=== PATIENT | female | born 1960 | race Caucasian/White ===

== ENCOUNTER → 2017-10-22 11:44 | Outpatient (CLI) | payer BC, SELFPAY ==
[2017-10-22 12:50] LABS: Abs Immature Grans 0.04 k/cumm (0.0-0.09); Absolute Basophil Count 0.06 k/cumm (0.0-0.2); Absolute Eosinophil Count 0.05 k/cumm (0.0-0.7); Absolute Lymphocyte Count 0.92 k/cumm (1.2-3.4); Absolute Monocyte Count 1.05 k/cumm (0.11-0.7); Absolute Neutrophil Count 4.48 k/cumm (1.2-6.7); Basophils % 0.9; Eosinophils % 0.8; HCT 33.5 % (36.0-46.0); HGB 11.5 g/dL (12.0-15.5); Immature Grans % 0.6; Lymphocytes % 13.9; Mean Corp. HGB Concentration 34.3 g/dL (32.0-36.0); Mean Corpuscular Hemoglobin 35.8 pg (27.0-33.0); Mean Corpuscular Volume 104.4 fL (80-95); Mean Platelet Volume 10.5 fL (8.0-11.0); Monocytes % 15.9; Neutrophils % 67.9; RBC 3.21 m/cumm (4.00-5.20); RBC Distribution Width 15.3 % (11.7-14.6)
[2017-10-22 13:06] LABS: INR 1.6 (1.0-3.5); Prothrombin Time 15.2 sec (9.3-10.8)
[2017-10-22 13:09] LABS: ALT 50 U/L (12-78); AST 169 U/L (15-37); Albumin 2.6 g/dL (3.4-5.0); Alkaline Phosphatase 147 U/L (46-116); Anion Gap 7.7 mmol/L (3-11); BUN 6 mg/dL (7-18); Bilirubin, Total 7.3 mg/dL (0.2-1.0); CO2 30.3 mmol/L (21.0-32.0); CREATININE 0.52 mg/dL (0.55-1.02); Calcium 8.6 mg/dL (8.5-10.1); Chloride 101 mmol/L (98-107); Glucose 164 mg/dL (70-100); Potassium 4.1 mmol/L (3.5-5.1); Sodium 139 mmol/L (136-145); Total Protein 7.8 g/dL (6.4-8.2)
[2017-10-22 13:52] LABS: Platelet Count 91 x1000/uL (130-400)
== END ==
PROVIDERS: PCP Family Medicine; Visit Provider Nurse Practitioner Family
DX: K70.31 Alcoholic cirrhosis of liver with ascites (principal)
CPT/HCPCS: 36415; 80053; 85025; 85610

== ENCOUNTER 2018-01-17 13:02 | Inpatient (IN) | payer BC, SELFPAY ==
[2018-01-17] VITALS (81 sets, daily range): BP systolic 77–115; BP diastolic 39–66; PULSE 95–128; RESP 6–28; TEMP 36.8–38.4; O2SAT 84–100
[2018-01-17] MEDS: Normal Saline 1,000 ML 1000 ML IV ×2 (14:00→15:00)
--- NOTE | 2018-01-17 14:07 | DI.CT_ITS ---
SYMPTOMS/DIAGNOSIS: BACK AND ABDOMINAL PAIN CTA OF THE CHEST, ABDOMEN AND PELVIS: CT angiography was performed with multi slice acquisition and multi planar and 3D reconstruction. CTA OF THE ABDOMEN AND PELVIS: Comparison CT is 09/02/17. The liver is lobulated with an enlarged left lobe. These findings are unchanged. The findings are suggestive of hepatic cirrhosis. There are varices seen in the upper abdomen, including adjacent to the spleen in the anterior abdomen and at the gastroesophageal junction. The spleen appears mildly enlarged. There is a small amount of pelvic and abdominal ascites present. There are stones seen within the gallbladder, which appears mildly distended. No biliary ductal dilatation is seen. The pancreas is unremarkable, as are the adrenal glands. The kidneys show normal and symmetric enhancement. No solid renal mass or obstruction is seen. The urinary bladder is intact. The reproductive organs are unremarkable. There is a moderate amount of stool throughout the colon. There is diverticulosis seen in the distal transverse colon and descending colon, but no evidence of acute diverticulitis is present. There does appear to be mild bowel wall thickening in the ascending colon and cecum. Pericolonic inflammatory changes are seen. Colitis should be considered. Followup is recommended to exclude an underlying mass. The appendix is not visualized. The abdominal aorta is of normal caliber. There is mild atherosclerosis present. No evidence of dissection or aneurysm is seen. The celiac axis, inferior and superior mesenteric arteries all appear grossly unremarkable, as are the renal arteries. Mild degenerative changes are seen in the spine, particularly at L5-S1. IMPRESSION: 1. No evidence of abdominal or pelvic arterial injury, dissection or aneurysm. 2. Findings consistent with hepatic cirrhosis with findings of portal hypertension. A small amount of ascites, splenomegaly and extensive abdominal varices. 3. Bowel wall thickening in the ascending colon and cecum. The findings are suspicious for inflammatory infectious colitis. No obstruction. 4. Cholelithiasis. No biliary ductal dilatation. CTA OF THE CHEST: The thoracic aorta is of normal caliber. The visualized portions of the pulmonary artery show no embolic disease. The heart size is within normal limits. No significant pericardial effusion is present. No evidence of right ventricular dysfunction is seen. No significant mediastinal or hilar adenopathy , pleural effusion or pneumothorax is identified. The lungs show no focal consolidating infiltrates. Dependent atelectatic changes are seen in the bases. Mild emphysematous changes are seen in the lungs. Tracheobronchial tree is otherwise unremarkable. Degenerative changes are seen in the spine. Incidental note is made of bilateral breast implants. IMPRESSION: 1. No evidence of thoracic aortic injury. 2. No acute pulmonary process. The findings were discussed with Dr. Tricia Monterroso of the Emergency Department on the date of the examination.
[2018-01-17] MEDS: Ondansetron 4 MG/2 ML VIAL IVP (14:10)
[2018-01-17 14:19] LABS: Lactate-non-spesis 4.3 mmol/L (0.6-1.4)
[2018-01-17] MEDS: Omnipaque 350 MG/ML 100 ML BTL IJ (14:21)
[2018-01-17 14:24] LABS: Abs Immature Grans 0.01 k/cumm (0.0-0.09); Absolute Basophil Count 0.01 k/cumm (0.0-0.2); Absolute Eosinophil Count 0.03 k/cumm (0.0-0.7); Absolute Lymphocyte Count 0.38 k/cumm (1.2-3.4); Absolute Monocyte Count 0.18 k/cumm (0.11-0.7); Absolute Neutrophil Count 3.33 k/cumm (1.2-6.7); Basophils % 0.3; Eosinophils % 0.8; HCT 36.7 % (36.0-46.0); HGB 12.1 g/dL (12.0-15.5); Immature Grans % 0.3; Lymphocytes % 9.6; Mean Corpuscular Hemoglobin 35.5 pg (27.0-33.0); Mean Corpuscular Volume 107.6 fL (80-95); Mean Platelet Volume 10.3 fL (8.0-11.0); Monocytes % 4.6; Neutrophils % 84.4; RBC 3.41 m/cumm (4.00-5.20); RBC Distribution Width 14.8 % (11.7-14.6); White Blood Cell Count 3.94 k/cumm (4.4-10.8)
--- NOTE | 2018-01-17 14:25 | W.ED.GENAD ---
Discharge Plan Disposition Condition: Deteriorating Discharge Details Chief Complaint: Abd Prob Reason For Visit: SEPSIS, COLITIS Admit Date/Time: 01/17/18 18:32 Admit Provider: Christopher Nicholson Attending Provider: Christopher Nicholson Primary Care Provider: Lisa Marie ED Provider: Tricia Monterroso Discharge Instructions Activity:: Bedrest Diet:: NPO Discharge Orders Discharge Orders: Discharge Order (Routine); Ordered 01/18/18 Ordered By: Christopher Nicholson Discharge Data Discharge Date/Time-TO BE ENTERED AT DEPARTURE: 01/17/18 16:36 Medical Decision Making Dalia Land is a 57 y/o woman with h/o alcoholism, liver cirrhosis, HLD, asthma, breast ca in remission for 6 years who presented to the emergency department with sudden onset severe RLQ radiating to the back at 10am today that has been worsening since, now also with upper back pain, headache, neck pain, and generalized abdominal pain. On exam Pt appears in pain and acutely ill. Abdomen is soft and non-distended but diffusely TTP with rebound and guarding. Pt is febrile and tachycardic. Concern for bowel ischemia, aortic pathology, appy, perforated bowel, SBP, other acute emergent intrabdominal process. Exam/hx not c/w PE, ACS, meningitis, non-abdominal source of infection. Pt taken emergently for CTA thorax/abd/pelv after IV placed with IVF running. Plan for IV vanc/zosyn, screening labs, IVF hydration, telemetry, IV opiate pain control. Dr. Diallo of surgery made aware of Pt after abdominal exam prior to CT given peritoneal signs, CT pending. Pt significantly more comfortable after pain meds. Continues to be tachycardic. Intermittent hypotension SBP 80s that is fluid responsive to SBP 110s. CT shows ascending colitis, cirrhosis, and mild ascites. No apparent ascites on exam. Pt reports she had paracentesis performed at [facility] [place] a few months ago. Possible SBP. Dr. Nicholson consulted for possible admission, Dr. Daillo at bedside. Dr. Diallo and Dr. Nicholson with concern for possible ischemic bowel or other surgical process. Plan for admission to Dr. Diallo and OR for ex/lap. Pt is amenable to the plan. I have spent greater than 35 min caring for this critically ill patient, including frequent reassessments and discussions with consultants. Medical Records Medical records reviewed: Yes I reviewed the patient's medical records. Imaging Data Radiologic Study: Attestation: I personally reviewed and interpreted this imaging study as follows: Radiologist's impression: CTA OF THE ABDOMEN AND PELVIS: Comparison CT is 09/02/17. The liver is lobulated with an enlarged left lobe. These findings are unchanged. The findings are suggestive of hepatic cirrhosis. There are varices seen in the upper abdomen, including adjacent to the spleen in the anterior abdomen and at the gastroesophageal junction. The spleen appears mildly enlarged. There is a small amount of pelvic and abdominal ascites present. There are stones seen within the gallbladder, which appears mildly distended. No biliary ductal dilatation is seen. The pancreas is unremarkable, as are the adrenal glands. The kidneys show normal and symmetric enhancement. No solid renal mass or obstruction is seen. The urinary bladder is intact. The reproductive organs are unremarkable. There is a moderate amount of stool throughout the colon. There is diverticulosis seen in the distal transverse colon and descending colon, but no evidence of acute diverticulitis is present. There does appear to be mild bowel wall thickening in the ascending colon and cecum. Pericolonic inflammatory changes are seen. Colitis should be considered. Followup is recommended to exclude an underlying mass. The appendix is not visualized. The abdominal aorta is of normal caliber. There is mild atherosclerosis present. No evidence of dissection or aneurysm is seen. The celiac axis, inferior and superior mesenteric arteries all appear grossly unremarkable, as are the renal arteries. Mild degenerative changes are seen in the spine, particularly at L5-S1. IMPRESSION: 1. No evidence of abdominal or pelvic arterial injury, dissection or aneurysm. 2. Findings consistent with hepatic cirrhosis with findings of portal hypertension. A small amount of ascites, splenomegaly and extensive abdominal varices. 3. Bowel wall thickening in the ascending colon and cecum. The findings are suspicious for inflammatory infectious colitis. No obstruction. 4. Cholelithiasis. No biliary ductal dilatation. CTA OF THE CHEST: The thoracic aorta is of normal caliber. The visualized portions of the pulmonary artery show no embolic disease. The heart size is within normal limits. No significant pericardial effusion is present. No evidence of right ventricular dysfunction is seen. No significant mediastinal or hilar adenopathy, pleural effusion or pneumothorax is identified. The lungs show no focal consolidating infiltrates. Dependent atelectatic changes are seen in the bases. Mild emphysematous changes are seen in the lungs. Tracheobronchial tree is otherwise unremarkable. Degenerative changes are seen in the spine. Incidental note is made of bilateral breast implants. IMPRESSION: 1. No evidence of thoracic aortic injury. 2. No acute pulmonary process. Lab Data Lab results reviewed: Yes I reviewed the patient's lab results. HPI General Mode of arrival: ambulatory. Date/Time Provider Initiated Documentation: 01/17/18 14:00. Limitations to Documentation: no limitations. Information obtained by: patient, family, RN notes reviewed and old records reviewed. HPI Narrative: Dalia Land is a 57 y/o woman with h/o alcoholism, liver cirrhosis, HLD, asthma, breast ca in remission for 6 years who presents to the emergency department with abd pain. Pt is accompanied by her who also provides hx. Pt reports that she was in etoh rehab at [facility] [place] 3 months ago. Has been feeling well since. Today at 10am Pt reports that she develop sudden onset severe stabbing pain in the RLQ that went through to her back. Pt reports that since onset pain has been worsening. She also reports that she has developed upper back pain, neck pain, headache, and generalized abdominal pain a few hours after RLQ pain began. Pt reports that she has had no vomiting or diarrhea since onset of pain, however they do note that Pt had a few episodes of vomiting/diarrhea a few days ago. Pt and report that prior to onset of pain today she has been feeling well and in her usual state of health without symptoms. Had been eating and drinking normally. No recent etoh. No hematochezia or melena, no SOB, no cough, no n/t, no weakness, no rash, no fever. Pt reports headache is not the worst of her life, has had several worse headaches in her life. She reports that her worst pain is her generalized abdominal pain. Related Data Home Medications Medication Instructions Recorded Confirmed albuterol sulfate 1 vial UPD Q4H PRN #1 box 02/12/15 01/17/18 albuterol sulfate [Ventolin HFA] 2 puff INHALATION QID PRN #3 puff 02/12/15 01/17/18 acamprosate 333 mg PO TID #90 tab 06/02/17 01/17/18 capsaicin 60 gm TOPICAL TID PRN #1 script 06/02/17 01/17/18 milk thistle 1,000 mg PO DAILY 06/02/17 01/17/18 pregabalin [Lyrica] 50 mg PO DAILY #90 tab-cap 06/02/17 01/17/18 omeprazole 20 mg PO DAILY PRN #30 capsule. 09/02/17 valacyclovir 1,000 mg PO BID #12 tab-cap 09/17/17 01/17/18 ferrous sulfate 325 mg PO DAILY 11/02/17 01/17/18 folic acid 1 mg PO DAILY tab-cap 11/02/17 01/17/18 furosemide 40 mg PO BID tab-cap 11/02/17 01/17/18 gabapentin 100 mg PO TID tab-cap 11/02/17 01/17/18 levothyroxine 75 mcg PO DAILY #90 tab-cap 11/02/17 01/17/18 magnesium oxide 500 mg PO DAILY #90 tab-cap 11/02/17 01/17/18 melatonin 5 mg PO DAILY #90 tab-cap 11/02/17 01/17/18 pravastatin 40 mg PO DAILY #90 tab-cap 11/02/17 01/17/18 ranitidine HCl 150 mg PO BID #30 tab-cap 11/02/17 01/17/18 spironolactone 100 mg PO DAILY tab-cap 11/02/17 01/17/18 thiamine HCl (vitamin B1) 250 mg PO DAILY 11/02/17 01/17/18 potassium chloride 20 meq PO DAILY #30 tab 11/04/17 Previous Rx's Medication Instructions Recorded acamprosate 333 mg PO TID #90 tab 06/02/17 pregabalin [Lyrica] 50 mg PO DAILY #90 tab-cap 06/02/17 omeprazole 20 mg PO DAILY PRN #30 capsule. 09/02/17 valacyclovir 1,000 mg PO BID #12 tab-cap 09/17/17 levothyroxine 75 mcg PO DAILY #90 tab-cap 11/02/17 magnesium oxide 500 mg PO DAILY #90 tab-cap 11/02/17 melatonin 5 mg PO DAILY #90 tab-cap 11/02/17 pravastatin 40 mg PO DAILY #90 tab-cap 11/02/17 ranitidine HCl 150 mg PO BID #30 tab-cap 11/02/17 potassium chloride 20 meq PO DAILY #30 tab 11/04/17 Allergies Allergy/AdvReac Type Severity Reaction Status Date / Time neomycin AdvReac Unknown Unverified 01/17/18 15:06 Coldcough medicines AdvReac Severe resp. Uncoded 01/17/18 15:06 General Stated Complaint: Abd Prob ELIEZER: 3 Review of Systems Review of Systems Constitutional: denies fevers Eyes: denies eye pain ENT: denies facial pain, dental pain, sore throat Cardiovascular: denies chest pain, edema Respiratory: denies SOB, cough GI: reports abdominal pain, vomiting, diarrhea : denies flank pain MSK: reports back pain, neck pain denies arthralgias, myalgias Skin: denies rash Neuro: reports headaches, denies n/t, weakness Exam Narrative Exam Narrative: Constitutional: acutely ill-appearing, appears uncomfortable HENT: head atraumatic, normocephalic normal inspection, mucous membranes moist Eyes: conjunctiva normal, sclera normal, pupils 3mm b/l Neck: no stridor, normal ROM, trachea midline, supple NTTP, full painless ROM, neg K/B signs Chest: normal inspection Resp: normal work of breathing, LCTAB Cardio: tachycardic, normal rhythm, 3/6 systolic murmur known to Pt GI: abdomen soft, tender throughout with rebound and guarding, non-distended, no fuid wave Back: normal inspection, no rash Skin: warm, dry, normal color, no rash Neuro: alert, not altered, grossly non-focal, normal tone Ext: no edema Psych: normal behavior Course Vital Signs Temperature 36.8 C 01/17/18 13:10 Pulse 95 H 01/17/18 13:10 Respiratory Rate 18 01/17/18 13:10 Blood Pressure 98/40 L 01/17/18 13:10 Pulse Oximetry 100 01/17/18 13:10 Temperature 38.4 C H 01/17/18 13:55 Temperature Source Oral 01/17/18 13:55 Pulse 95 H 01/17/18 13:10 Respiratory Rate 18 01/17/18 13:10 Blood Pressure 98/40 L 01/17/18 13:10 Pulse Oximetry 100 01/17/18 13:10 Oxygen Delivery Method Room Air 01/17/18 13:10 Oxygen Flow Rate 0 01/17/18 13:10 Pain Level 9 01/17/18 13:10 Lab/Test Results Lab/Test Results: 01/17/18 14:05 Blood Blood Culture - Pending 01/17/18 14:02 Blood Blood Culture - Pending Laboratory Tests Range/Units 01/17/18 14:05 Lactate (0.6-1.4) mmol/L 4.3 H
[2018-01-17 14:39] LABS: INR 1.5 (1.0-3.5); Prothrombin Time 14.3 sec (9.3-10.8)
[2018-01-17 14:41] LABS: ALT 60 U/L (12-78); AST 87 U/L (15-37); Albumin 2.7 g/dL (3.4-5.0); Alkaline Phosphatase 122 U/L (46-116); Anion Gap 8.4 mmol/L (3-11); BUN 13 mg/dL (7-18); Bilirubin, Total 4.3 mg/dL (0.2-1.0); CO2 30.6 mmol/L (21.0-32.0); CREATININE 0.92 mg/dL (0.55-1.02); Calcium 9.4 mg/dL (8.5-10.1); Chloride 100 mmol/L (98-107); Glucose 170 mg/dL (70-100); Lipase 290 U/L (73-393); Potassium 4.2 mmol/L (3.5-5.1); Sodium 139 mmol/L (136-145); Total Protein 7.3 g/dL (6.4-8.2)
[2018-01-17 14:42] LABS: Troponin I < 0.02 ng/mL (0.00-0.06)
[2018-01-17 14:44] LABS: Diff Comment PLT Morph Reviewed
[2018-01-17 14:45] LABS: Macrocytosis 2+; Platelet Count 91 x1000/uL (130-400); Polychromasia Present
[2018-01-17] MEDS: HYDROmorphone 2 MG/ML VIAL 0.5 MG IVP (14:51)
[2018-01-17] MEDS: PIPERACILLIN/TAZO 4.5 GM in Normal Saline 100 ML IVPB (14:53)
[2018-01-17] MEDS: VANCOMYCIN 1,500 MG in Normal Saline 500 ML 333.3333 MG IVPB (15:33)
[2018-01-17] MEDS: Lactated Ringers 1,000 ML 1000 ML IV (15:57)
--- NOTE | 2018-01-17 16:02 | W.PM.HP.N ---
Assessment and Plan (1) Sepsis: Current visit: Yes Status: Acute A\\ Acute onset of abdominal pain. CTA shows ascending colitis? Patient with guarding and rebound even after pain medications. Lactate is increased to >4 and BUN normal. She is tachycardic and hypotensive. She is febrile. I am worried about ischemic bowel. Discussion with Dalia and her regrading exploratory vs watching and waiting, but I recommend surgery. Laparoscopic surgery not feasable as the patient is hypotensive. P\\ Exploratory Laparotomy with possible bowel resection, anastamosis and loop ileostomy vs colostomy. Central line placement and a-line placement. Also spoke to bothe patient and that I would do what I thought necessary once I found the problem. Also cautioned that this may end up a non-therapeutic laparotomy. Patients questions were answered to her satisfaction and she wished to proceed. No guarantees were given or implied. (2) Acute abdomen: Current visit: Yes Status: Acute History of Present Illness Chief Complaint: Abdominal pain Consults Consult date: 01/17/18 Requesting physician: Tricia Monterroso Narrative: Ms. Land is a 57-year-old female who has a history of alcohol abuse but has been in remission for 12 weeks. Her is at her bedside. She tells me that at 10:00 this morning she acutely had abdominal pain that started in the right lower quadrant and progressed up to the right flank right back and up to the right shoulder. She denies any diarrhea. She did have some intermittent nausea and vomiting for about a week. Up until today she was afebrile and was eating normally. She has never had pain like this before. Her last alcoholic drink was 2 days ago when she had a glass of wine. Her tells me that she has had 2 glasses of wine in the last 12 weeks. She does have a history of cirrhosis biopsy-proven. She has no history of varices. Her last meal was at midnight. She arrived in the emergency department writhing in pain hypotensive and tachycardic. Her [place] [address] 10/60 range pulse usually in the 60s-70s. On admission to the ER her blood systolic blood pressure was 80 and she was tachycardic in the 1 teens. On exam the ER physician felt that she had an acute abdomen but because of the pain being throughout the right side of side of her belly and chest and up to the neck a CT angiogram chest abdomen and pelvis was ordered. Radiologist has read it as a sending colitis. Of note she has an elevated lactate of over 4 with a normal BUN and creatinine. Her platelets are only 91 and her white blood cell count is below 4. Review of Systems Constitutional Reports anorexia and Reports fever(s) ENT Denies dizziness Cardiovascular Denies chest pain, Denies chest pain at rest, Denies syncope, Denies irregular heart rhythm, Denies palpitations, Denies dyspnea and Denies dyspnea on exertion Respiratory Denies cough, Denies hemoptysis, Denies pain with cough, Denies dyspnea and Denies dyspnea on exertion Gastrointestinal Reports as per HPI Genitourinary Denies hematuria, Denies urinary frequency, Reports flank pain, Denies urinary incontinence, Denies urinary hesitancy and Denies urinary urgency Musculoskeletal Reports system reviewed and no additional complaints, except as docu Neurologic Denies confusion, Denies dizziness and Denies syncope Psychiatric Denies confusion Endocrine Reports system reviewed and no additional complaints, except as docu and Denies palpitations Hematologic/Lymphatic Denies easy bleeding and Denies easy bruising PFSH Family History Mother Hyperlipidemia Neoplasm Father Diabetes Essential hypertension Heart disease Hyperlipidemia Sister CML (chronic myelocytic leukemia) Grandmother Diabetes Essential hypertension Heart disease Cerebrovascular accident Son No problems noted. Daughter No problems noted. Medical History Solitary lung nodule (Acute) Cirrhosis of liver (Chronic) Depression (Chronic) Fatty liver (Chronic) GERD (gastroesophageal reflux disease) (Chronic) Hx of adenomatous colonic polyps (Chronic) Hx of breast cancer (Chronic) Hyperlipidemia (Chronic) Hypothyroid (Chronic) Idiopathic peripheral neuropathy (Chronic) Murmur (Chronic) Social History housing: house marital status: current occupational status: employed current occupation: Nurse with [employer] Smoking/Tobacco Use Status: Never alcohol intake: current alcohol intake frequency: a few times a month Alcohol type: wine details: Patient was a heavy drinker. In the last 12 weeks she has had 2 glassess of substance use type: does not use Surgical History S/P colonoscopy (Acute) History of esophagogastroduodenoscopy (EGD) (Chronic) Arthroplasty of knee Reconstruction Reduction mammoplasty Thumb surgery (right) Meds Home Medications Medication Instructions Recorded Confirmed Type albuterol sulfate 1 vial UPD Q4H PRN #1 box 02/12/15 01/17/18 History albuterol sulfate [Ventolin HFA] 2 puff INHALATION QID PRN #3 puff 02/12/15 01/17/18 History acamprosate 333 mg PO TID #90 tab 06/02/17 01/17/18 Rx capsaicin 60 gm TOPICAL TID PRN #1 script 06/02/17 01/17/18 History milk thistle 1,000 mg PO DAILY 06/02/17 01/17/18 History pregabalin [Lyrica] 50 mg PO DAILY #90 tab-cap 06/02/17 01/17/18 Rx omeprazole 20 mg PO DAILY PRN #30 capsule. 09/02/17 Rx valacyclovir 1,000 mg PO BID #12 tab-cap 09/17/17 01/17/18 Rx Citalopram Hydrobromide 40 mg PO DAILY #90 tab-cap 11/02/17 01/17/18 Clinic [Citalopram HBr] ferrous sulfate 325 mg PO DAILY 11/02/17 01/17/18 History folic acid 1 mg PO DAILY tab-cap 11/02/17 01/17/18 History furosemide 40 mg PO BID tab-cap 11/02/17 01/17/18 History gabapentin 100 mg PO TID tab-cap 11/02/17 01/17/18 History levothyroxine 75 mcg PO DAILY #90 tab-cap 11/02/17 01/17/18 Rx magnesium oxide 500 mg PO DAILY #90 tab-cap 11/02/17 01/17/18 Rx melatonin 5 mg PO DAILY #90 tab-cap 11/02/17 01/17/18 Rx pravastatin 40 mg PO DAILY #90 tab-cap 11/02/17 01/17/18 Rx ranitidine HCl 150 mg PO BID #30 tab-cap 11/02/17 01/17/18 Rx spironolactone 100 mg PO DAILY tab-cap 11/02/17 01/17/18 History thiamine HCl (vitamin B1) 250 mg PO DAILY 11/02/17 01/17/18 History potassium chloride 20 meq PO DAILY #30 tab 11/04/17 Rx Allergies Allergy/AdvReac Type Severity Reaction Status Date / Time neomycin AdvReac Unknown Unverified 01/17/18 15:06 Coldcough medicines AdvReac Severe resp. Uncoded 01/17/18 15:06 Exam Const General: cooperative and acute distress Resp Effort & Inspection: normal respiratory effort Auscultation: clear to auscultation bilaterally Cardio Rate: tachycardic Rhythm: regular rhythm Heart Sounds: murmur systolic III/ GI Inspection: other (just below the xiphoid process there is a hematoma? ) Palpation: soft, guarding and tender in the RLQ, in the RUQ and at McBurney's point Auscultation: normal bowel sounds Abdomen image: 1. hematoma? General: deferred Results Labs : 01/17/18 14:05 01/17/18 14:05 Laboratory Results - last 24 hr 01/17/18 01/17/18 01/17/18 14:05 14:05 14:05 WBC 3.94 L RBC 3.41 L Hgb 12.1 Hct 36.7 MCV 107.6 H MCH 35.5 H MCHC 33.0 RDW 14.8 H Plt Count 91 L MPV 10.3 Immature Gran % 0.3 Neutrophils % 84.4 Lymphocytes % 9.6 Monocytes % 4.6 Eosinophils % 0.8 Basophils % 0.3 Absolute Neutrophils 3.33 Absolute Lymphocytes 0.38 L Absolute Monocytes 0.18 Absolute Eosinophils 0.03 Absolute Basophils 0.01 Differential Comment Plt morph reviewed RBC Morphology See below Polychromasia Present Macrocytosis 2+ PT INR Sodium 139 Potassium 4.2 Chloride 100 Carbon Dioxide 30.6 Anion Gap 8.4 BUN 13 Creatinine 0.92 Estimated GFR/1.73 m2 >= 60.00 Glucose 170 H Lactate 4.3 H Calcium 9.4 Total Bilirubin 4.3 H AST 87 H ALT 60 Alkaline Phosphatase 122 H Troponin I < 0.02 Total Protein 7.3 Albumin 2.7 L Lipase 290 Patient ABO/Rh Antibody Screen 01/17/18 01/17/18 14:05 14:35 WBC RBC Hgb Hct MCV MCH MCHC RDW Plt Count MPV Immature Gran % Neutrophils % Lymphocytes % Monocytes % Eosinophils % Basophils % Absolute Neutrophils Absolute Lymphocytes Absolute Monocytes Absolute Eosinophils Absolute Basophils Differential Comment RBC Morphology Polychromasia Macrocytosis PT 14.3 H INR 1.5 Sodium Potassium Chloride Carbon Dioxide Anion Gap BUN Creatinine Estimated GFR/1.73 m2 Glucose Lactate Calcium Total Bilirubin AST ALT Alkaline Phosphatase Troponin I Total Protein Albumin Lipase Patient ABO/Rh A Positive Antibody Screen Negative Last Vital Signs Temp 99.9 F H 01/17/18 16:01 Pulse 113 H 01/17/18 15:30 Resp 9 L 01/17/18 15:40 BP 92/52 L 01/17/18 15:30 Pulse Ox 94 L 01/17/18 15:40
[2018-01-17] MEDS: Lactated Ringers 1,000 ML 150 ML IV ×4 (16:45→18:59)
[2018-01-17] MEDS: Cellulose,Oxidized 4X8 1 PACKET MC (17:00)
--- NOTE | 2018-01-17 18:41 | DI.RAD_ITS ---
SYMPTOM/DIAGNOSIS: CENTRAL LINE PLACEMENT. PORTABLE AP CHEST: Comparison is made with CT scan of 01/17/18. Heart size is within normal limits as is the pulmonary vasculature. There is a left central venous catheter , the tip is seen in the superior vena cava in good position. No pneumothorax is identified. There are small bilateral pleural effusions and bilateral basilar infiltrates. There is an S type scoliosis of the thoracolumbar spine. Surgical clips are seen over the right hemithorax. IMPRESSION: Bilateral air space opacities in the lower lobes and bilateral pleural effusions which are small. Pneumonia is suspected. Atelectasis cannot be excluded.
[2018-01-17 19:07] LABS: Lactate-non-spesis 4.2 mmol/L (0.6-1.4)
[2018-01-17 19:17] LABS: Abs Immature Grans 0.03 k/cumm (0.0-0.09); HCT 29.4 % (36.0-46.0); HGB 9.7 g/dL (12.0-15.5); Mean Corpuscular Hemoglobin 35.9 pg (27.0-33.0); Mean Corpuscular Volume 108.9 fL (80-95); Mean Platelet Volume 10.5 fL (8.0-11.0); RBC Distribution Width 14.8 % (11.7-14.6); White Blood Cell Count 8.66 k/cumm (4.4-10.8)
[2018-01-17 19:29] LABS: Magnesium 1.1 mg/dL (1.8-2.4)
[2018-01-17 19:35] LABS: ALT 44 U/L (12-78); AST 66 U/L (15-37); Alkaline Phosphatase 80 U/L (46-116); Anion Gap 7.6 mmol/L (3-11); BUN 13 mg/dL (7-18); Bilirubin, Total 4.9 mg/dL (0.2-1.0); CO2 26.4 mmol/L (21.0-32.0); CREATININE 0.83 mg/dL (0.55-1.02); Calcium 8.1 mg/dL (8.5-10.1); Chloride 107 mmol/L (98-107); Glucose 118 mg/dL (70-100); Potassium 4.6 mmol/L (3.5-5.1); Sodium 141 mmol/L (136-145); Total Protein 5.5 g/dL (6.4-8.2)
[2018-01-17 20:07] LABS: Absolute Eosinophil Count 0.17 k/cumm (0.0-0.7); Absolute Lymphocyte Count 0.69 k/cumm (1.2-3.4); Absolute Monocyte Count 1.56 k/cumm (0.11-0.7); Absolute Neutrophil Count 6.24 k/cumm (1.2-6.7); Atypical Lymphocytes % 0
[2018-01-17 20:08] LABS: Diff Comment Manual Differential; Hypochromasia 1+; Macrocytosis 1+; Other Cells 0; Promyelocytes % 0 %
[2018-01-17 20:09] LABS: Platelet Count 68 x1000/uL (130-400)
--- NOTE | 2018-01-17 20:23 | DI.VRAD_ITS ---
EXAM: XR Chest, 1 View EXAM DATE/TIME: 01/17/2018 6:43 PM CLINICAL HISTORY: 57 years old, female; Device placement; Picc; Patient HX: Central line placement TECHNIQUE: XR of the chest, 1 view. COMPARISON: CR CHEST 2 VIEWS PA,LAT 09/02/2017 11:29 AM FINDINGS: A central venous catheter is present from a left sided approach. The tip of the catheter is superimposed over the lower SVC. There are patchy densities within the right and left lung bases consistent with focal airspace disease such as atelectasis versus pneumonia. There is a tiny left pleural effusion. No pneumothorax is identified. The cardiomediastinal silhouette and pulmonary vasculature are within normal limits. There is a moderate to severe scoliosis of the thoracic spine, apex to the right. IMPRESSION: 1. Central line placement with tip superimposed over the lower SVC. No pneumothorax. 2. Bilateral lower lobe airspace disease. Differential diagnosis includes atelectasis and pneumonia. 3. Tiny left pleural effusion. Dictated and Authenticated by: Hipolito Tavarez MD. Ordering:DOTTIE ALEXANDRA MD
[2018-01-17] MEDS: Normal Saline 1,000 ML 250 ML IV (20:30)
--- NOTE | 2018-01-17 20:32 | W.PM.OP ---
Operative Note DATE OF PROCEDURE: 01/17/18 PRE-OP DIAGNOSIS: Acute abdomen, sepsis POST-OP DIAGNOSIS: other (ascending colitis, infected ascitis, cirrhosis) PROCEDURE: Exploratory Laparotomy with cultures and Left subclavian Central Line placement SURGEON: Antonia Diallo [employer] SUPERVISOR: Val Mason ANESTHESIA: GETA (maldonado Araujo CRNA) ESTIMATED BLOOD LOSS: 100 COMPLICATIONS: None Patient was transported to: ICU Patient's condition: critical Indications: Ms. Land is a 57-year-old female who came to the emergency department with acute onset of abdominal pain today around 10 AM. She has had some nausea and vomiting intermittently for the last week. About 12 weeks ago she was at [facility] for detox. She also at that time had a paracentesis done for ascites. Patient has known cirrhosis. On examination patient had an acute abdomen with rebound and guarding. CT angios showed ascending colitis and some intra-abdominal fluid. Her labs were remarkable for a white count below 4 and an elevated lactate. She is also noted to have a temp of 101 on admission, she was also hypotensive and tachycardic. Due to her examined exam and the labs exploratory laparotomy which recommended. Because of her hypotension I did not feel that she would tolerate a laparoscopy. Risks benefits and complications of an exploratory laparotomy with possible bowel resection were reviewed with the patient and she wished to proceed. No guarantees were given or implied. Findings: There was inflammation and thickening of the cecum and ascending colon. Severe cirrhosis of the liver was identified. The gallbladder was distended but otherwise unremarkable. The bowel was otherwise normal no signs of ischemia. 2 small ovarian cysts were noted one on the right ovary and one on the left ovary. Uterus was normal stomach was normal. There was infected fluid noted above the spleen and above the liver. Procedure Description: After informed consent was obtained the patient was taken to the operating room placed in the supine position monitors were applied and SCDs were applied to her lower extremities. The patient was then placed under general anesthesia and intubated. An OG was placed. Next a Daley catheter was placed in the standard fashion. Next a timeout was done. The patient's name, date of , allergies to medications, procedure site and type, antibiotic prophylaxis, and DVT prophylaxis were all reviewed. Fire risk was also reviewed. Patient was typed and screened prior to coming to surgery. The patient's abdomen was then prepped and draped in a sterile surgical fashion with chlorhexidine. A midline incision was made from just above the umbilicus to just above the pubic symphysis. Dissection through the subcutaneous tissue was done with cautery down to the fascia. The fascia was opened and the peritoneum was grasped with hemostat and opened sharply with curved Metzenbaum scissors. Once the peritoneum was opened was able to place my finger underneath and open the rest of the fascia and peritoneum with cautery. Purulent ascitic fluid was encountered. A culture was done. The bowel was then inspected systematically starting at the cecum. The cecum was thickened and edematous but there were no signs of ischemia. There was no palpable mass. The inflammation went just to the hepatic flexure. Past this point the transverse colon was normal as was the descending sigmoid and rectum. The small bowel was then inspected from the ligament of Treitz down to the terminal ileum it was healthy pink and there was good peristalsis. The stomach was inspected and the NG tube was palpated. The stomach was normal. The liver was then inspected and it was noted to be severely cirrhotic. The gallbladder was identified and inspected it was dilated but there was no thickening no signs of necrosis or infection around the gallbladder. The ovaries were then identified 2 small benign-appearing cysts were noted on the left ovary and there was a benign-appearing cyst on the fallopian tube on the right. The uterus looked normal it was palpated and I could not feel any masses. I felt behind his the spleen and again there was some ascitic fluid. Some bleeding was noted to from the liver where the gallbladder attaches due to the manipulation as I was inspecting. Surgicel was applied as well as a lap sponge for pressure. The abdomen was then irrigated with 2 L of warm normal saline. The effluent was clear towards the end. The fascia was grasped with Sparta's. The fascia was closed with 2 #1 Vicryl running sutures. The skin was loosely reapproximated using manfred. Exparel was injected into the fascia. The skin was then cleaned and dried and 4 x 4's and Tegaderm was applied. At this point sponge instrument needle counts were correct. While the patient was still asleep her left chest was prepped and draped in the sterile surgical fashion. Using a central line kit the needle was inserted into the subclavian vein after 2 tries. Venous return was noted and the guidewire was placed through the needle. The needle was removed and a small incision was made at the skin with an 11 blade. The dilator was placed over the guidewire into the subclavian vein. The dilator was then removed. Triple-lumen catheter was placed over the guidewire to approximately 15 cm. The guidewire was removed. The catheter was sutured into place with 2-0 silk. All 3 ports were flushed with normal saline. There was good blood return as well from all 3 ports. The skin was cleaned and dried and a dry dressing was applied over the central line. Needle and instrument counts were correct at the end of the central line placement. The patient was woken up and extubated and taken back to recovery in stable but critical condition. This operative note was dictated with Lenny
[2018-01-17] MEDS: HYDROmorphone 2 MG/ML VIAL 1 MG IVP (20:35)
[2018-01-17] MEDS: ACETAMINOPHEN 1,000 MG/100 ML BTL 400 MG IVPB (21:17)
[2018-01-17] MEDS: Normal Saline Flush 10 ML SYR 60 ML (21:30)
--- NOTE | 2018-01-17 22:10 | ED.GENADUL_ITS ---
Discharge Plan Disposition Condition: Deteriorating Discharge Details Chief Complaint: Abd Prob Reason For Visit: SEPSIS, COLITIS Admit Date/Time: 01/17/18 18:32 Admit Provider: Christopher Nicholson Attending Provider: Christopher Nicholson Primary Care Provider: Lisa Marie ED Provider: Tircia Monterroso Discharge Instructions Activity:: Bedrest Diet:: NPO Discharge Orders Discharge Orders: Discharge Order (Routine); Ordered 01/18/18 Ordered By: Christopher Nicholson Discharge Data Discharge Date/Time-TO BE ENTERED AT DEPARTURE: 01/17/18 16:36 Medical Decision Making Dalia Land is a 57 y/o woman with h/o alcoholism, liver cirrhosis, HLD, asthma , breast ca in remission for 6 years who presented to the emergency department with sudden onset severe RLQ radiating to the back at 10am today that has been worsening since, now also with upper back pain, headache, neck pain, and generalized abdominal pain. On exam Pt appears in pain and acutely ill. Abdomen is soft and non-distended but diffusely TTP with rebound and guarding. Pt is febrile and tachycardic. Concern for bowel ischemia, aortic pathology, appy, perforated bowel, SBP, other acute emergent intrabdominal process. Exam/hx not c /w PE, ACS, meningitis, non-abdominal source of infection. Pt taken emergently for CTA thorax/abd/pelv after IV placed with IVF running. Plan for IV vanc/zosyn , screening labs, IVF hydration, telemetry, IV opiate pain control. Dr. Diallo of surgery made aware of Pt after abdominal exam prior to CT given peritoneal signs, CT pending. Pt significantly more comfortable after pain meds. Continues to be tachycardic. Intermittent hypotension SBP 80s that is fluid responsive to SBP 110s. CT shows ascending colitis, cirrhosis, and mild ascites. No apparent ascites on exam. Pt reports she had paracentesis performed at [facility] a few months ago. Possible SBP. Dr. Nicholson consulted for possible admission, Dr. Diallo at bedside. Dr. Diallo and Dr. Nicholson with concern for possible ischemic bowel or other surgical process. Plan for admission to Dr. Diallo and OR for ex/lap. Pt is amenable to the plan. I have spent greater than 35 min caring for this critically ill patient, including frequent reassessments and discussions with consultants. Medical Records Medical records reviewed: Yes I reviewed the patient's medical records. Imaging Data Radiologic Study: Attestation: I personally reviewed and interpreted this imaging study as follows: Radiologist's impression: CTA OF THE ABDOMEN AND PELVIS: Comparison CT is 09/02/17. The liver is lobulated with an enlarged left lobe. These findings are unchanged. The findings are suggestive of hepatic cirrhosis. There are varices seen in the upper abdomen, including adjacent to the spleen in the anterior abdomen and at the gastroesophageal junction. The spleen appears mildly enlarged. There is a small amount of pelvic and abdominal ascites present. There are stones seen within the gallbladder, which appears mildly distended. No biliary ductal dilatation is seen. The pancreas is unremarkable, as are the adrenal glands. The kidneys show normal and symmetric enhancement. No solid renal mass or obstruction is seen. The urinary bladder is intact. The reproductive organs are unremarkable. There is a moderate amount of stool throughout the colon. There is diverticulosis seen in the distal transverse colon and descending colon, but no evidence of acute diverticulitis is present. There does appear to be mild bowel wall thickening in the ascending colon and cecum. Pericolonic inflammatory changes are seen. Colitis should be considered. Followup is recommended to exclude an underlying mass. The appendix is not visualized. The abdominal aorta is of normal caliber. There is mild atherosclerosis present. No evidence of dissection or aneurysm is seen. The celiac axis, inferior and superior mesenteric arteries all appear grossly unremarkable, as are the renal arteries. Mild degenerative changes are seen in the spine, particularly at L5-S1. IMPRESSION: 1. No evidence of abdominal or pelvic arterial injury, dissection or aneurysm. 2. Findings consistent with hepatic cirrhosis with findings of portal hypertension. A small amount of ascites, splenomegaly and extensive abdominal varices. 3. Bowel wall thickening in the ascending colon and cecum. The findings are suspicious for inflammatory infectious colitis. No obstruction. 4. Cholelithiasis. No biliary ductal dilatation. CTA OF THE CHEST: The thoracic aorta is of normal caliber. The visualized portions of the pulmonary artery show no embolic disease. The heart size is within normal limits. No significant pericardial effusion is present. No evidence of right ventricular dysfunction is seen. No significant mediastinal or hilar adenopathy , pleural effusion or pneumothorax is identified. The lungs show no focal consolidating infiltrates. Dependent atelectatic changes are seen in the bases. Mild emphysematous changes are seen in the lungs. Tracheobronchial tree is otherwise unremarkable. Degenerative changes are seen in the spine. Incidental note is made of bilateral breast implants. IMPRESSION: 1. No evidence of thoracic aortic injury. 2. No acute pulmonary process. Lab Data Lab results reviewed: Yes I reviewed the patient's lab results. HPI General Mode of arrival: ambulatory . Date/Time Provider Initiated Documentation: 01/17/18 14:00 . Limitations to Documentation: no limitations . Information obtained by: patient, family, RN notes reviewed and old records reviewed . HPI Narrative: Dalia Land is a 57 y/o woman with h/o alcoholism, liver cirrhosis, HLD, asthma, breast ca in remission for 6 years who presents to the emergency department with abd pain. Pt is accompanied by her who also provides hx. Pt reports that she was in etoh rehab at [facility] 3 months ago. Has been feeling well since. Today at 10am Pt reports that she develop sudden onset severe stabbing pain in the RLQ that went through to her back. Pt reports that since onset pain has been worsening. She also reports that she has developed upper back pain, neck pain, headache, and generalized abdominal pain a few hours after RLQ pain began. Pt reports that she has had no vomiting or diarrhea since onset of pain, however they do note that Pt had a few episodes of vomiting /diarrhea a few days ago. Pt and report that prior to onset of pain today she has been feeling well and in her usual state of health without symptoms. Had been eating and drinking normally. No recent etoh. No hematochezia or melena, no SOB, no cough, no n/t, no weakness, no rash, no fever. Pt reports headache is not the worst of her life, has had several worse headaches in her life. She reports that her worst pain is her generalized abdominal pain. Related Data Home Medications Medication Instructions Recorded Confirmed albuterol sulfate 1 vial UPD Q4H PRN #1 box 02/12/15 01/17/18 albuterol sulfate [Ventolin HFA] 2 puff INHALATION QID PRN #3 puff 02/12/15 acamprosate 333 mg PO TID #90 tab 06/02/17 01/17/18 capsaicin 60 gm TOPICAL TID PRN #1 script 06/02/17 01/17/18 milk thistle 1,000 mg PO DAILY 06/02/17 01/17/18 pregabalin [Lyrica] 50 mg PO DAILY #90 tab-cap 06/02/17 01/17/18 omeprazole 20 mg PO DAILY PRN #30 capsule. 09/02/17 valacyclovir 1,000 mg PO BID #12 tab-cap 09/17/17 01/17/18 ferrous sulfate 325 mg PO DAILY 11/02/17 01/17/18 folic acid 1 mg PO DAILY tab-cap 11/02/17 01/17/18 furosemide 40 mg PO BID tab-cap 11/02/17 01/17/18 gabapentin 100 mg PO TID tab-cap 11/02/17 01/17/18 levothyroxine 75 mcg PO DAILY #90 tab-cap 11/02/17 01/17/18 magnesium oxide 500 mg PO DAILY #90 tab-cap 11/02/17 01/17/18 melatonin 5 mg PO DAILY #90 tab-cap 11/02/17 01/17/18 pravastatin 40 mg PO DAILY #90 tab-cap 11/02/17 01/17/18 ranitidine HCl 150 mg PO BID #30 tab-cap 11/02/17 01/17/18 spironolactone 100 mg PO DAILY tab-cap 11/02/17 01/17/18 thiamine HCl (vitamin B1) 250 mg PO DAILY 11/02/17 01/17/18 potassium chloride 20 meq PO DAILY #30 tab 11/04/17 Previous Rx's Medication Instructions Recorded acamprosate 333 mg PO TID #90 tab 06/02/17 pregabalin [Lyrica] 50 mg PO DAILY #90 tab-cap 06/02/17 omeprazole 20 mg PO DAILY PRN #30 capsule. 09/02/17 valacyclovir 1,000 mg PO BID #12 tab-cap 09/17/17 levothyroxine 75 mcg PO DAILY #90 tab-cap 11/02/17 magnesium oxide 500 mg PO DAILY #90 tab-cap 11/02/17 melatonin 5 mg PO DAILY #90 tab-cap 11/02/17 pravastatin 40 mg PO DAILY #90 tab-cap 11/02/17 ranitidine HCl 150 mg PO BID #30 tab-cap 11/02/17 potassium chloride 20 meq PO DAILY #30 tab 11/04/17 Allergies Allergy/AdvReac Type Severity Reaction Status Date / Time neomycin AdvReac Unknown Unverified 01/17/18 15:06 Coldcough medicines AdvReac Severe resp. Uncoded 01/17/18 15:06 General Stated Complaint: Abd Prob ELIEZER: 3 Review of Systems Review of Systems Constitutional: denies fevers Eyes: denies eye pain ENT: denies facial pain, dental pain, sore throat Cardiovascular: denies chest pain, edema Respiratory: denies SOB, cough GI: reports abdominal pain, vomiting, diarrhea : denies flank pain MSK: reports back pain, neck pain denies arthralgias, myalgias Skin: denies rash Neuro: reports headaches, denies n/t, weakness Exam Narrative Exam Narrative: Constitutional: acutely ill-appearing, appears uncomfortable HENT: head atraumatic, normocephalic normal inspection, mucous membranes moist Eyes: conjunctiva normal, sclera normal, pupils 3mm b/l Neck: no stridor, normal ROM, trachea midline, supple NTTP, full painless ROM, neg K/B signs Chest: normal inspection Resp: normal work of breathing, LCTAB Cardio: tachycardic, normal rhythm, 3/6 systolic murmur known to Pt GI: abdomen soft, tender throughout with rebound and guarding, non-distended, no fuid wave Back: normal inspection, no rash Skin: warm, dry, normal color, no rash Neuro: alert, not altered, grossly non-focal, normal tone Ext: no edema Psych: normal behavior Course Vital Signs Temperature 36.8 C 01/17/18 13:10 Pulse 95 H 01/17/18 13:10 Respiratory Rate 18 01/17/18 13:10 Blood Pressure 98/40 L 01/17/18 13:10 Pulse Oximetry 100 01/17/18 13:10 Temperature 38.4 C H 01/17/18 13:55 Temperature Source Oral 01/17/18 13:55 Pulse 95 H 01/17/18 13:10 Respiratory Rate 18 01/17/18 13:10 Blood Pressure 98/40 L 01/17/18 13:10 Pulse Oximetry 100 01/17/18 13:10 Oxygen Delivery Method Room Air 01/17/18 13:10 Oxygen Flow Rate 0 01/17/18 13:10 Pain Level 9 01/17/18 13:10 Lab/Test Results Lab/Test Results: 01/17/18 14:05 Blood Blood Culture - Pending 01/17/18 14:02 Blood Blood Culture - Pending Laboratory Tests Range/Units 01/17/18 14:05 Lactate (0.6-1.4) mmol/L 4.3 H
[2018-01-18] VITALS (74 sets, daily range): BP systolic 70–114; BP diastolic 29–85; PULSE 86–117; RESP 0–23; TEMP 35.9–36.9; O2SAT 90–99
[2018-01-18] MEDS: PIPERACILLIN/TAZO 4.5 GM in Normal Saline 100 ML IVPB ×2 (00:07→05:01)
[2018-01-18] MEDS: ACETAMINOPHEN 1,000 MG/100 ML BTL 400 MG IVPB (01:32)
[2018-01-18] MEDS: VANCOMYCIN 1,000 MG in Normal Saline 250 ML 250 MG IV ×2 (04:22→11:10)
[2018-01-18] MEDS: Normal Saline Flush 10 ML SYR 30 ML (06:43)
[2018-01-18 07:27] LABS: Lactate-non-spesis 5.2 mmol/L (0.6-1.4)
--- NOTE | 2018-01-18 07:27 | W.PM.PROGNOT ---
Assessment and Plan (1) Sepsis: Current visit: Yes Status: Acute A\\ Sepsis with colitis and purulent appearing ascitis. Gram stain only showing WBC no bacteria. P\\ 1. Diet: NPO 2. Hypotension: Continue with IV fluids and phenylephrine. Check CVP to guide fluid resuscitation 3. Sepsis: Continue Vanco and Zosyn. Cultures pending 4. DVT prophilaxis: SCD's. Patient cirrhosis and INR of 1.5 and low platelets 5. GI prophilaxis: Protonix IV 6. Murmur: chronic. No ECHO on file. Will order ECHO 7. Cirrhosis Appreciate Medicine taking over care for patient. We will follow along for the surgical aspect. Subjective Interval history since last seen: Dalia is sleeping comfortably Per nursing she had a good night. Was able to sleep. She has only used 0.6 mg of Dilauded between 11 and 5. She is still on 9 L of O2 keeping sats at >90. Concern for sleep apnea as she has 2-3 sec pauses. Urine output also concerning. Has only had 260 cc in 6 hours. Exam Resp Effort & Inspection: normal respiratory effort Auscultation: clear to auscultation bilaterally and diminished lung sounds Cardio Rate: tachycardic Rhythm: regular rhythm Heart Sounds: no click, no gallops and murmur GI Palpation: soft and tender (mild tenderness over incision) Auscultation: hypoactive bowel sounds Other: Dressing with some serosanguinous discharge. Objective Objective Clinical Data: Abnormal lab results 01/17/18 01/17/18 01/17/18 Range/Units 14:05 14:05 14:05 WBC 3.94 L (4.4-10.8) k/cumm RBC 3.41 L (4.00-5.20) m/cumm Hgb (12.0-15.5) g/dL Hct (36.0-46.0) % MCV 107.6 H (80-95) fL MCH 35.5 H (27.0-33.0) pg RDW 14.8 H (11.7-14.6) % Plt Count 91 L (130-400) x1000/uL Absolute Lymphocytes 0.38 L (1.2-3.4) k/cumm Absolute Monocytes (0.11-0.7) k/cumm PT (9.3-10.8) sec Glucose 170 H (70-100) mg/dL Lactate 4.3 H (0.6-1.4) mmol/L Calcium (8.5-10.1) mg/dL Magnesium (1.8-2.4) mg/dL Total Bilirubin 4.3 H (0.2-1.0) mg/dL AST 87 H (15-37) U/L Alkaline Phosphatase 122 H (46-116) U/L Total Protein (6.4-8.2) g/dL Albumin 2.7 L (3.4-5.0) g/dL 01/17/18 01/17/18 01/17/18 Range/Units 14:05 18:37 19:00 WBC (4.4-10.8) k/cumm RBC (4.00-5.20) m/cumm Hgb (12.0-15.5) g/dL Hct (36.0-46.0) % MCV (80-95) fL MCH (27.0-33.0) pg RDW (11.7-14.6) % Plt Count (130-400) x1000/uL Absolute Lymphocytes (1.2-3.4) k/cumm Absolute Monocytes (0.11-0.7) k/cumm PT 14.3 H (9.3-10.8) sec Glucose 118 H (70-100) mg/dL Lactate (0.6-1.4) mmol/L Calcium 8.1 L (8.5-10.1) mg/dL Magnesium 1.1 L (1.8-2.4) mg/dL Total Bilirubin 4.9 H (0.2-1.0) mg/dL AST 66 H (15-37) U/L Alkaline Phosphatase (46-116) U/L Total Protein 5.5 L (6.4-8.2) g/dL Albumin 2.0 L (3.4-5.0) g/dL 01/17/18 01/17/18 Range/Units 19:00 19:00 WBC (4.4-10.8) k/cumm RBC 2.70 L (4.00-5.20) m/cumm Hgb 9.7 L D (12.0-15.5) g/dL Hct 29.4 L (36.0-46.0) % MCV 108.9 H (80-95) fL MCH 35.9 H (27.0-33.0) pg RDW 14.8 H (11.7-14.6) % Plt Count 68 L (130-400) x1000/uL Absolute Lymphocytes 0.69 L (1.2-3.4) k/cumm Absolute Monocytes 1.56 H (0.11-0.7) k/cumm PT (9.3-10.8) sec Glucose (70-100) mg/dL Lactate 4.2 H (0.6-1.4) mmol/L Calcium (8.5-10.1) mg/dL Magnesium (1.8-2.4) mg/dL Total Bilirubin (0.2-1.0) mg/dL AST (15-37) U/L Alkaline Phosphatase (46-116) U/L Total Protein (6.4-8.2) g/dL Albumin (3.4-5.0) g/dL Vital Signs Temperature 98.2 F 01/18/18 03:00 Temperature Source Temporal Artery Scan 01/18/18 03:00 Pulse 106 H 01/18/18 03:00 Pulse 116 H 01/17/18 22:40 Respiratory Rate 8 L 01/18/18 03:00 Respiratory Effort 01/18/18 03:00 Respiratory Depth Normal 01/18/18 03:00 Respiratory Pattern Irregular 01/18/18 03:00 Blood Pressure 105/52 L 01/18/18 03:00 Blood Pressure Mean 69 01/18/18 03:00 Blood Pressure Position Supine 01/17/18 20:43 Pulse Oximetry 98 01/18/18 01:41 Respiratory End-tidal CO2 48 01/17/18 19:06 Oxygen Delivery Method OxyMask 01/18/18 03:00 Oxygen Flow Rate 9 01/18/18 03:00 Pain Level 0 01/18/18 03:00 Comment 01/17/18 13:10 Intake & Output 01/17/18 01/17/18 01/18/18 11:59 23:59 11:59 Intake Total 8693.667 / 8693.667 3064.733 / 3064.733 Output Total 660 / 660 125 / 125 Balance 8033.667 / 8033.667 2939.733 / 2939.733 Weight 152 lb 1.903 oz Intake: IV 8223.667 / 8223.667 2745.733 / 2745.733 Oral 20 / 20 Blood Product 450 / 450 294 / 294 Frozen Plasma Unit 450 / 450 [id number] Frozen Plasma Unit 294 / 294 [id number] Other Frozen Plasma Unit [id number] Output: Urine 385 / 385 125 / 125 Emesis 175 / 175 Estimated Blood Loss 100 / 100 Other: Urine Color Yellow Yellow Urine Appearance Clear Clear Comment Standard urine collection bag changed to a Urinemeter collection device for more accurate measurment of U/O. Emesis Description None Laboratory Results WBC 8.66 k/cumm (4.4-10.8) D 01/17/18 19:00 RBC 2.70 m/cumm (4.00-5.20) L 01/17/18 19:00 Hgb 9.7 g/dL (12.0-15.5) L D 01/17/18 19:00 Hct 29.4 % (36.0-46.0) L 01/17/18 19:00 MCV 108.9 fL (80-95) H 01/17/18 19:00 MCH 35.9 pg (27.0-33.0) H 01/17/18 19:00 MCHC 33.0 g/dL (32.0-36.0) 01/17/18 19:00 RDW 14.8 % (11.7-14.6) H 01/17/18 19:00 Plt Count 68 x1000/uL (130-400) L 01/17/18 19:00 MPV 10.5 fL (8.0-11.0) 01/17/18 19:00 Immature Gran % 0.0 01/17/18 19:00 Neutrophils % 72.0 01/17/18 19:00 Lymphocytes % 8.0 01/17/18 19:00 Monocytes % 18.0 01/17/18 19:00 Eosinophils % 2.0 01/17/18 19:00 Basophils % 0.0 01/17/18 19:00 Absolute Neutrophils 6.24 k/cumm (1.2-6.7) 01/17/18 19:00 Band Neutrophils 0.0 % 01/17/18 19:00 Absolute Lymphocytes 0.69 k/cumm (1.2-3.4) L 01/17/18 19:00 Absolute Monocytes 1.56 k/cumm (0.11-0.7) H 01/17/18 19:00 Absolute Eosinophils 0.17 k/cumm (0.0-0.7) 01/17/18 19:00 Absolute Basophils 0.00 k/cumm (0.0-0.2) 01/17/18 19:00 Metamyelocytes 0.0 % 01/17/18 19:00 Myelocytes 0.0 % 01/17/18 19:00 Promyelocytes 0 % 01/17/18 19:00 Differential Comment Manual differential 01/17/18 19:00 Atypical Lymphocytes 0 01/17/18 19:00 Other Cell Type 0 01/17/18 19:00 RBC Morphology See below 01/17/18 19:00 Polychromasia Present 01/17/18 14:05 Hypochromasia 1+ 01/17/18 19:00 Macrocytosis 1+ 01/17/18 19:00 PT 14.3 sec (9.3-10.8) H 01/17/18 14:05 INR 1.5 (1.0-3.5) 01/17/18 14:05 Sodium 141 mmol/L (136-145) 01/17/18 19:00 Potassium 4.6 mmol/L (3.5-5.1) 01/17/18 19:00 Chloride 107 mmol/L (98-107) 01/17/18 19:00 Carbon Dioxide 26.4 mmol/L (21.0-32.0) 01/17/18 19:00 Anion Gap 7.6 mmol/L (3-11) 01/17/18 19:00 BUN 13 mg/dL (7-18) 01/17/18 19:00 Creatinine 0.83 mg/dL (0.55-1.02) 01/17/18 19:00 Estimated GFR/1.73 m2 >= 60.00 (mL/min/1.73m2) 01/17/18 19:00 Glucose 118 mg/dL (70-100) H 01/17/18 19:00 Lactate 4.2 mmol/L (0.6-1.4) H 01/17/18 19:00 Calcium 8.1 mg/dL (8.5-10.1) L 01/17/18 19:00 Magnesium 1.1 mg/dL (1.8-2.4) L 01/17/18 18:37 Total Bilirubin 4.9 mg/dL (0.2-1.0) H 01/17/18 19:00 AST 66 U/L (15-37) H 01/17/18 19:00 ALT 44 U/L (12-78) 01/17/18 19:00 Alkaline Phosphatase 80 U/L (46-116) 01/17/18 19:00 Troponin I < 0.02 ng/mL (0.00-0.06) 01/17/18 14:05 Total Protein 5.5 g/dL (6.4-8.2) L 01/17/18 19:00 Albumin 2.0 g/dL (3.4-5.0) L 01/17/18 19:00 Lipase 290 U/L (73-393) 01/17/18 14:05 Patient ABO/Rh A Positive 01/17/18 14:35 Antibody Screen Negative 01/17/18 14:35
[2018-01-18] MEDS: Normal Saline 1,000 ML 250 ML IV (07:36)
[2018-01-18 07:38] LABS: Abs Immature Grans 0.12 k/cumm (0.0-0.09); HCT 33.1 % (36.0-46.0); HGB 10.1 g/dL (12.0-15.5); Mean Corp. HGB Concentration 30.5 g/dL (32.0-36.0); Mean Corpuscular Hemoglobin 35.7 pg (27.0-33.0); Mean Platelet Volume 10.7 fL (8.0-11.0); RBC 2.83 m/cumm (4.00-5.20); RBC Distribution Width 14.9 % (11.7-14.6); White Blood Cell Count 21.14 k/cumm (4.4-10.8)
[2018-01-18 07:42] LABS: INR 1.6 (1.0-3.5); Prothrombin Time 15.1 sec (9.3-10.8)
[2018-01-18 07:48] LABS: ALT 55 U/L (12-78); AST 76 U/L (15-37); Albumin 2.4 g/dL (3.4-5.0); Alkaline Phosphatase 81 U/L (46-116); Anion Gap 10.2 mmol/L (3-11); BUN 18 mg/dL (7-18); Bilirubin, Total 5.6 mg/dL (0.2-1.0); CO2 24.8 mmol/L (21.0-32.0); Chloride 106 mmol/L (98-107); Estimated GFR 57.35 (mL/min/1.73m2); Glucose 135 mg/dL (70-100); Magnesium 1.5 mg/dL (1.8-2.4); Potassium 5.3 mmol/L (3.5-5.1); Sodium 141 mmol/L (136-145); Total Protein 6.7 g/dL (6.4-8.2)
[2018-01-18 08:32] LABS: Absolute Eosinophil Count 0.21 k/cumm (0.0-0.7); Absolute Lymphocyte Count 2.11 k/cumm (1.2-3.4); Absolute Monocyte Count 2.96 k/cumm (0.11-0.7); Absolute Neutrophil Count 15.43 k/cumm (1.2-6.7)
[2018-01-18 08:33] LABS: Anisocytosis 1+; Diff Comment Manual Differential; Macrocytosis 2+; Polychromasia Present
[2018-01-18 08:34] LABS: Platelet Count 100 x1000/uL (130-400)
--- NOTE | 2018-01-18 08:50 | MERGE_ITS ---
*[facility]* *[facility]* [address] [place] [address] Date of study: 01/18/2018 Transthoracic Echocardiography M-mode, complete 2D, complete spectral Doppler, and color Doppler *STUDY CONCLUSIONS* Summary: 1. Left ventricle: The cavity size was normal. Wall thickness was normal. Systolic function was normal. The estimated ejection fraction was 60-65%. Wall motion was normal; there were no regional wall motion abnormalities. 2. Mitral valve: Mildly calcified annulus. Mildly thickened leaflets. There was mild to moderate regurgitation. 3. Left atrium: The atrium was mildly dilated. 4. Right ventricle: The cavity size was normal. Wall thickness was normal. Systolic function was normal. 5. Tricuspid valve: There was mild-moderate regurgitation. 6. Pulmonary arteries: Pulmonary systolic pressure was increased, in the range of 35mm Hg to 40mm Hg. *PATIENT PRESENTATION* Height: 172.7cm ((68in) ) S/D Pressure: 80 / 48 Weight: 68.9kg ((151.7lb) ) BSA: 1.82m^2 Test start time: 09:00 AM. Test stop time: 09:50 AM. PERFORMING Unknown ORDERING Christopher Nicholson REFERRING Christopher Nicholson PERFORMING [facility] UPHOL[employer] INSTRUCTOR RT Claudia Atkinson)(PRECIOUS) [facility] *PROCEDURE DATA* Procedure information: The patient was identified by two identifiers. This study was interpreted by [facility]. Pertinent images and digital data are archived for permanent storage and are available for subsequent review. No prior study was available for comparison. Study status: Routine. Transthoracic echocardiography. M-mode, complete 2D, complete spectral Doppler, and color Doppler. A Transthoracic Echocardiogram was performed. Scanning was performed from the parasternal, apical, subcostal, and suprasternal notch acoustic windows. Images were obtained using an [id number] cardiac ultrasound machine. Image quality was adequate. Study completion: The patient tolerated the procedure well. There were no complications. History: PMH: Sepsis murmur. *CARDIAC ANATOMY* Left ventricle: The cavity size was normal. Wall thickness was normal. Systolic function was normal. The estimated ejection fraction was 60-65%. Wall motion was normal; there were no regional wall motion abnormalities. Diastolic parameters were normal. Aortic valve: Trileaflet; mildly thickened leaflets. Mobility was not restricted. Doppler: Transvalvular velocity was within the normal range. There was no stenosis. There was no significant regurgitation. VTI ratio of LVOT to aortic valve: 0.56. Valve area (VTI): 1.5cm^2. Indexed valve area (VTI): 0.8cm^2/m^2. Peak velocity ratio of LVOT to aortic valve: 0.56. Valve area (Vmax): 1.5cm^2. Indexed valve area (Vmax): 0.8cm^2/m^2. Mean velocity ratio of LVOT to aortic valve: 0.62. Valve area (Vmean): 1.7cm^2. Indexed valve area (Vmean): 0.9cm^2/m^2. Mean gradient (S): 7.8mm Hg. Peak gradient (S): 14.8mm Hg. Aorta: Aortic root: The aortic root was normal in size. Ascending aorta: The ascending aorta was normal in size. Mitral valve: Mildly calcified annulus. Mildly thickened leaflets. Mobility was not restricted. Doppler: Transvalvular velocity was within the normal range. There was no evidence for stenosis. There was mild to moderate regurgitation. Valve area by pressure half-time: 4cm^2. Indexed valve area by pressure half-time: 2.2cm^2/m^2. Peak gradient (D): 5.5mm Hg. Left atrium: The atrium was mildly dilated. Right ventricle: The cavity size was normal. Wall thickness was normal. Systolic function was normal. Pulmonic valve: The pulmonary valve appears to be grossly normal. Doppler: Transvalvular velocity was within the normal range. There was no evidence for stenosis. There was no significant regurgitation. Tricuspid valve: Structurally normal valve. Doppler: Transvalvular velocity was within the normal range. There was no evidence for stenosis. There was mild-moderate regurgitation. Pulmonary artery: Pulmonary systolic pressure was increased, in the range of 35mm Hg to 40mm Hg. Right atrium: The atrium was normal in size. Pericardium: There was no pericardial effusion. Systemic veins: Inferior vena cava: Well visualized. The vessel was patent and normal in size. The respirophasic diameter changes were blunted (less than 50%). Baseline ECG: Normal sinus rhythm. Measurements Left ventricle Value Reference LV ID, ED, PLAX 4.8 cm 3.5 - 6.0 LV ID, ES, PLAX 3.1 cm 2.1 - 4.0 LV PW thickness, ED, PLAX 0.9 cm LV end-diastolic volume, 1-p A2C 97 ml LV ejection fraction, 1-p A2C 67 % LV end-diastolic volume, 1-p A4C 49 ml LV ejection fraction, 1-p A4C 61 % LV e', lateral 0.131 m/sec LV E/e', lateral 9 LV e', medial 0.099 m/sec LV E/e', medial 12 LV e', average 0.115 m/sec LV E/e', average 10 Ventricular septum Value Reference IVS thickness, ED, PLAX 1.0 cm LVOT Value Reference LVOT ID, A-P 1.9 cm LVOT area 2.7 cm^2 LVOT peak velocity, S 1.07 m/sec LVOT mean velocity, S 0.82 m/sec LVOT VTI, S 21.1 cm LVOT peak gradient, S 4.6 mm Hg LVOT mean gradient, S 2.9 mm Hg Stroke volume (SV), LVOT DP 57 ml Stroke index (SV/bsa), LVOT DP 31 ml/m^2 Aortic valve Value Reference Aortic valve peak velocity, S 1.9 m/sec Aortic valve mean velocity, S 1.32 m/sec Aortic valve VTI, S 38.0 cm Aortic mean gradient, S 7.8 mm Hg Aortic peak gradient, S 14.8 mm Hg VTI ratio, LVOT/AV 0.56 Aortic valve area, VTI 1.5 cm^2 Velocity ratio, peak, LVOT/AV 0.56 Aortic valve area, peak velocity 1.5 cm^2 Velocity ratio, mean, LVOT/AV 0.62 Aortic valve area, mean velocity 1.7 cm^2 Aortic valve area/bsa, mean velocity 0.9 cm^2/m^2 Aorta Value Reference Aortic root ID, ED 2.8 cm RVOT Value Reference RVOT VTI, S 18.4 cm Left atrium Value Reference LA ID, A-P, ES 3.7 cm LA ID/bsa, A-P 2.0 cm/m^2 <=2.2 LA area, ES, A4C 21.7 cm^2 8.8 - 23.4 LA area, ES, A2C 20 cm^2 LA volume/bsa, ES, 1-p A4C 41 ml/m^2 LA volume, ES, 2-p 66 ml LA volume/bsa, ES, 2-p 36 ml/m^2 LA/aortic root ratio 1.31 Mitral valve Value Reference Mitral E-wave peak velocity 1.17 m/sec Mitral A-wave peak velocity 0.68 m/sec Mitral deceleration time 190 ms 150 - 230 Mitral pressure half-time 55 ms Mitral peak gradient, D 5.5 mm Hg Mitral E/A ratio, peak 1.73 Mitral valve area, PHT, DP 4 cm^2 Tricuspid valve Value Reference Tricuspid regurg peak velocity 3.1 m/sec Tricuspid peak RV-RA gradient 38.8 mm Hg Right atrium Value Reference RA area, ES, A4C 18.1 cm^2 8.3 - 19.5 Legend: (L) and (H) gunner values outside specified reference range. I have personally reviewed the images and have reviewed and edited the reported findings. Electronically signed by Joshua Mosqueda 01/18/2018 11:59
[2018-01-18] MEDS: Pantoprazole 40 MG VIAL IVP (09:23)
--- NOTE | 2018-01-18 09:35 | PDOC.CMIN ---
Care Management Initial Assess REASON FOR HOSPITALIZATION:: Sepsis, Colitis PAST MEDICAL HISTORY/PAST SURGICAL HISTORY:: Solitary lung nodule, cirrhosis of liver, depression, fatty liver, GERD, adenomatous colonic polyps, breast CA, hyperlipidemia, hypothyroid, idiopathic peripheral neuropathy, murmur, hx of alcohol abuse, asthma, mastectomy, rt thumb surgery, knee surgery/arthroscopy PREVIOUS FUNCTIONAL STATUS/SOCIAL/FAMILY SUPPORTS:: Dalia resides in [place], [place] with her significant other. CURRENT FUNCTIONAL STATUS:: Dalia is on her side, writhing in pain-unable to engage with this manual writer. Has patient been provided with information about the portal?: Yes Did the patient sign up for the portal?: No CODE STATUS:: Full Code INSURANCE COVERAGE / FINANCIAL ISSUES:: BC/BS PRIMARY CARE PHYSICIAN:: Lisa Marie. POTENTIAL DISCHARGE NEEDS:: Transport and bed coordination at tertiary facility. PATIENT/FAMILY EDUCATION NEEDS:: Transfer purpose and process. ANTICIPATED BARRIERS TO DISCHARGE:: None identified at this time. TRANSPORTATION:: EMS coordinated by [facility]. PLAN:: Dalia will transfer [place] [facility] [place].
--- NOTE | 2018-01-18 10:44 | W.PM.DS.N ---
Date of service: 01/18/18 Time of Service: 10:44 DS: Diagnosis Discharge Diagnosis (1) Sepsis: Status: Acute (2) Acute bacterial peritonitis: Status: Acute (3) Alcoholic cirrhosis of liver: Status: Acute Discharge Plan Disposition Patient Disposition: [facility] Condition: Deteriorating Discharge Details Reason For Visit: SEPSIS, COLITIS Admit Date/Time: 01/17/18 18:32 Admit Provider: Christopher Nicholson Attending Provider: Christopher Nicholson Primary Care Provider: Lisa Marie [facility] Course Hospital Course: CC: Abdominal Pain HPI: Ms. Land is a 57-year-old woman with a prior history of alcohol abuse but has been in remission for 12 weeks. Her is at her bedside. Patient reports onset of abdominal pain at 10:00 am on the morning of admission starting the right lower quadrant and progressing up to the right flank right back and up to the right shoulder. She denied any diarrhea. She did have some intermittent nausea and vomiting for about a week prior to this. Up until the day of admission she was afebrile and was eating normally. Her last alcoholic drink was 2 days ago when she had a glass of wine. Her reports that she has had 2 glasses of wine in the last 12 weeks. She does have a history of cirrhosis, biopsy-proven, and has been admitted at [facility] for Cirrhosis related treatment. She underwent a paracentesis there in October of this year. She has no history of varices. She arrived in the emergency department in significant pain. Work-up in the ED was relevant for a WBC less than 4, Lactate of 4.2, and CT evidence of Ascending Colitis suspicious for Inflammatory Infectious Colitis. She was also hypotensive despite aggressive fluid resuscitation, Tachycardic, Tachypneic, Febrille, and in significant pain despite IV Narcotic administration. Her exam was very concerning for an acute abdomen, and the patient was admitted to surgical services and underwent an Exploratory Laparotomy. Hospital Course: (1) Sepsis: In setting of acute abdominal pain and signs of ascending colitis and purulent ascites by report from surgery. Patient's exam initially displayed guarding, significant tenderness, and rebound despite IV Opiates. Subsequent Exploratory Laparotomy showed no evidence of other pathology. Overnight the patient was aggressively fluid resuscitated, and required pressor support with Phenylephrine to maintain adequate blood pressure. She was also initiated on Vancomycin and Pip-Tazo. Blood and Ascitic Fluid Cultures are pending, and ascitic fluid gram stain showed no bacteria but many WBCs. This morning the patient has an altered mental status but has been on a Hydromorphone LITHOGRAPHIC PLATE MAKER overnight. She is still tachycardic and pressor dependent, with a SBP ranging from 70-100's. She is afebrile. Her WBC is now 21 with significant bandemia at 28, and although her creatinine is 1 this value is technically approximately double her baseline value of 0.5-0.6, representing likely NAGA. Her Lactate has worsened to 5.2. An ECHO was also performed with read pending at this time. Discussion was had with the filtering machine tender helper team at [facility], and the patient is accepted for transfer for higher level of care. (2) Prophylaxis SCDs currently. Patient with underlying alcoholic Cirrhosis, INR of 1.5, and at bleeding risk post-op. (3) Code Status Full Code. Current Hospital Medications: 1. Levophed - Titrating to blood pressure per Protocol 2. Albuterol/Ipratropium - 3ml UPD Q6prn 3. Hydromorphone LITHOGRAPHIC PLATE MAKER - No basal rate, 0.3mg Q8 minutes prn - DISCONTINUED 4. Hydromorphone 0.5mg Q2 prn 5. Normal Saline 250 mls/hr 6. Protonix 40mg IV daily 7. Vancomycin Per dosing protocol Home Meds and New Rx's Prescriptions: No Action albuterol sulfate 2.5 MG/3 ML solution for nebulization 1 vial UPD Q4H PRN Qty: 1 RF: 4 albuterol sulfate [Ventolin HFA] 8 GM HFA aerosol inhaler 2 puff Inhalation QID PRNQty: 3 RF: 4 milk thistle 500 MG capsule 1,000 mg PO DAILY RF: 0 pregabalin [Lyrica] 50 MG capsule 50 mg PO DAILY Qty: 90 RF: 1 capsaicin 60 GM cream 60 gm Topical TID PRNQty: 1 RF: 2 acamprosate 333 MG tablet,delayed release (DR/EC) 333 mg PO TID Qty: 90 RF: 2 valacyclovir 500 MG tablet 1,000 mg PO BID Qty: 12 RF: 0 levothyroxine 75 MCG tablet 75 mcg PO DAILY Qty: 90 RF: 2 ranitidine HCl 150 MG capsule 150 mg PO BID Qty: 30 RF: 2 Citalopram Hydrobromide [Citalopram HBr] 40 MG tablet 40 mg PO DAILY Qty: 90 RF: 3 pravastatin 40 MG tablet 40 mg PO DAILY Qty: 90 RF: 2 magnesium oxide 500 MG capsule 500 mg PO DAILY Qty: 90 RF: 3 melatonin 5 MG tablet 5 mg PO DAILY Qty: 90 RF: 3 folic acid 1 MG tablet 1 mg PO DAILY RF: 0 ferrous sulfate 325 MG tablet,delayed release (DR/EC) 325 mg PO DAILY RF: 0 furosemide 40 MG tablet 40 mg PO BID RF: 0 spironolactone 100 MG tablet 100 mg PO DAILY RF: 0 thiamine HCl (vitamin B1) 250 MG tablet 250 mg PO DAILY RF: 0 gabapentin 100 MG capsule 100 mg PO TID RF: 0 potassium chloride 20 MEQ tablet extended release 20 meq PO DAILY Qty: 30 RF: 11 omeprazole 20 MG capsule,delayed release(DR/EC) 20 mg PO DAILY PRNQty: 30 RF: 0 Discharge Instructions Activity:: Bedrest Diet:: NPO Discharge Orders Discharge Orders: Discharge Order (Routine); Ordered 01/18/18 Ordered By: Christopher Nicholson Exam Narrative Exam Narrative: General: Ill appearing, asleep but arousable. Not verbal. Previously Oriented X3 at time of admission. Neck: Supple CV: Regular, tachycardic, S1S2, No rubs, murmurs, or gallops. Pulmonary: Clear to auscultation bilaterally, no crackles, wheezing, or rhonchi on limited anterior and lateral exam Abdomen: Exam prior to admission with + Bowel Sounds, tense abdomen with guarding, RLQ & RUQ pain, definite rebound. Current exam with significantly diminished bowel sounds,tender, distended. Surgical site with dressing in place that appears c/d/i, but per surgery will be saturated as wound was only partially closed due to infection risk Vascular: No lower extremity edema DS: Data Vitals/I&O Vitals and I&O: Vital Signs Temperature 36.8 C 01/18/18 03:00 Temperature Source Temporal Artery Scan 01/18/18 03:00 Pulse 88 01/18/18 09:30 Pulse 88 01/18/18 09:31 Respiratory Rate 11 L 01/18/18 09:31 Respiratory Effort 01/18/18 03:00 Respiratory Depth Normal 01/18/18 03:00 Respiratory Pattern Irregular 01/18/18 03:00 Blood Pressure 70/44 L 01/18/18 09:30 Blood Pressure Mean 49 01/18/18 09:30 Blood Pressure Position Supine 01/17/18 20:43 Pulse Oximetry 96 01/18/18 09:45 Respiratory End-tidal CO2 48 01/17/18 19:06 Oxygen Delivery Method OxyMask 01/18/18 09:45 Oxygen Flow Rate 9 01/18/18 09:45 Pain Level 0 01/18/18 03:00 Comment 01/17/18 13:10 Intake & Output 01/17/18 01/17/18 01/18/18 11:59 23:59 11:59 Intake Total 8693.667 / 8693.667 3947.483 / 3947.483 Output Total 660 / 660 485 / 485 Balance 8033.667 / 8033.667 3462.483 / 3462.483 Weight 69 kg 77.5 kg Intake: IV 8223.667 / 8223.667 3628.483 / 3628.483 Oral 20 / 20 Blood Product 450 / 450 294 / 294 Frozen Plasma Unit 450 / 450 [id number] Frozen Plasma Unit 294 / 294 [id number] Other 25 / 25 Frozen Plasma Unit 25 / 25 [id number] Output: Urine 385 / 385 485 / 485 Emesis 175 / 175 Estimated Blood Loss 100 / 100 Other: Urine Color Yellow Yellow Urine Appearance Clear Clear Comment Standard urine collection bag changed to a Urinemeter collection device for more accurate measurment of U/O. Emesis Description None Completed studies during hospitalization [Text1]: EXAM: XR Chest, 1 View EXAM DATE/TIME: 01/17/2018 6:43 PM CLINICAL HISTORY: 57 years old, female; Device placement; Picc; Patient HX: Central line placement TECHNIQUE: XR of the chest, 1 view. COMPARISON: CR CHEST 2 VIEWS PA,LAT 09/02/2017 11:29 AM FINDINGS: A central venous catheter is present from a left sided approach. The tip of the catheter is superimposed over the lower SVC. There are patchy densities within the right and left lung bases consistent with focal airspace disease such as atelectasis versus pneumonia. There is a tiny left pleural effusion. No pneumothorax is identified. The cardiomediastinal silhouette and pulmonary vasculature are within normal limits. There is a moderate to severe scoliosis of the thoracic spine, apex to the right. IMPRESSION: 1. Central line placement with tip superimposed over the lower SVC. No pneumothorax. 2. Bilateral lower lobe airspace disease. Differential diagnosis includes atelectasis and pneumonia. 3. Tiny left pleural effusion. Exam(s) a CT:CT thorax & abd/pel CTA SYMPTOMS/DIAGNOSIS: BACK AND ABDOMINAL PAIN CTA OF THE CHEST, ABDOMEN AND PELVIS: CT angiography was performed with multi slice acquisition and multi planar and 3D reconstruction. CTA OF THE ABDOMEN AND PELVIS: Comparison CT is 09/02/17. The liver is lobulated with an enlarged left lobe. These findings are unchanged. The findings are suggestive of hepatic cirrhosis. There are varices seen in the upper abdomen, including adjacent to the spleen in the anterior abdomen and at the gastroesophageal junction. The spleen appears mildly enlarged. There is a small amount of pelvic and abdominal ascites present. There are stones seen within the gallbladder, which appears mildly distended. No biliary ductal dilatation is seen. The pancreas is unremarkable, as are the adrenal glands. The kidneys show normal and symmetric enhancement. No solid renal mass or obstruction is seen. The urinary bladder is intact. The reproductive organs are unremarkable. There is a moderate amount of stool throughout the colon. There is diverticulosis seen in the distal transverse colon and descending colon, but no evidence of acute diverticulitis is present. There does appear to be mild bowel wall thickening in the ascending colon and cecum. Pericolonic inflammatory changes are seen. Colitis should be considered. Followup is recommended to exclude an underlying mass. The appendix is not visualized. The abdominal aorta is of normal caliber. There is mild atherosclerosis present. No evidence of dissection or aneurysm is seen. The celiac axis, inferior and superior mesenteric arteries all appear grossly unremarkable, as are the renal arteries. Mild degenerative changes are seen in the spine, particularly at L5-S1. IMPRESSION: 1. No evidence of abdominal or pelvic arterial injury, dissection or aneurysm. 2. Findings consistent with hepatic cirrhosis with findings of portal hypertension. A small amount of ascites, splenomegaly and extensive abdominal varices. 3. Bowel wall thickening in the ascending colon and cecum. The findings are suspicious for inflammatory infectious colitis. No obstruction. 4. Cholelithiasis. No biliary ductal dilatation. CTA OF THE CHEST: The thoracic aorta is of normal caliber. The visualized portions of the pulmonary artery show no embolic disease. The heart size is within normal limits. No significant pericardial effusion is present. No evidence of right ventricular dysfunction is seen. No significant mediastinal or hilar adenopathy, pleural effusion or pneumothorax is identified. The lungs show no focal consolidating infiltrates. Dependent atelectatic changes are seen in the bases. Mild emphysematous changes are seen in the lungs. Tracheobronchial tree is otherwise unremarkable. Degenerative changes are seen in the spine. Incidental note is made of bilateral breast implants. IMPRESSION: 1. No evidence of thoracic aortic injury. 2. No acute pulmonary process. Pending studies at discharge: ECHO performed and pending at this time. Labs on day of discharge: Labs from last 24 hours 01/18/18 01/18/18 01/18/18 Unknown 06:31 06:31 WBC RBC Hgb Hct MCV MCH MCHC RDW Plt Count MPV Immature Gran % Neutrophils % Lymphocytes % Monocytes % Eosinophils % Basophils % Absolute Neutrophils Band Neutrophils Absolute Lymphocytes Absolute Monocytes Absolute Eosinophils Absolute Basophils Metamyelocytes Myelocytes Promyelocytes Differential Comment Atypical Lymphocytes Other Cell Type RBC Morphology Polychromasia Hypochromasia Anisocytosis Macrocytosis PT 15.1 H INR 1.6 Sample Site Pending pCO2 Pending pO2 Pending O2 Saturation Pending ABG pH Pending ABG HCO3 Pending ABG Total CO2 Pending ABG Base Excess Pending Sodium Potassium Chloride Carbon Dioxide Anion Gap BUN Creatinine Estimated GFR/1.73 m2 Glucose Lactate 5.2 H Calcium Magnesium Total Bilirubin AST ALT Alkaline Phosphatase Troponin I Total Protein Albumin Lipase Urine Color Urine Clarity Urine pH Ur Specific [place] Urine Protein Urine Ketones Urine Blood Urine Nitrite Urine Bilirubin Urine Urobilinogen Ur Leukocyte Esterase Urine Glucose Patient ABO/Rh Antibody Screen 01/18/18 01/18/18 01/17/18 06:31 06:31 Unknown WBC 21.14 H D RBC 2.83 L Hgb 10.1 L Hct 33.1 L MCV 117.0 H D MCH 35.7 H MCHC 30.5 L RDW 14.9 H Plt Count 100 L MPV 10.7 Immature Gran % See Differential Neutrophils % 45.0 Lymphocytes % 10.0 Monocytes % 14.0 Eosinophils % 1.0 Basophils % 0.0 Absolute Neutrophils 15.43 H Band Neutrophils 28.0 Absolute Lymphocytes 2.11 Absolute Monocytes 2.96 H Absolute Eosinophils 0.21 Absolute Basophils 0.00 Metamyelocytes 2.0 Myelocytes Promyelocytes Differential Comment Manual differential Atypical Lymphocytes Other Cell Type RBC Morphology See below Polychromasia Present Hypochromasia Anisocytosis 1+ Macrocytosis 2+ PT INR Sample Site pCO2 pO2 O2 Saturation ABG pH ABG HCO3 ABG Total CO2 ABG Base Excess Sodium 141 Potassium 5.3 H Chloride 106 Carbon Dioxide 24.8 Anion Gap 10.2 BUN 18 Creatinine 1.00 Estimated GFR/1.73 m2 57.35 Glucose 135 H Lactate Calcium 8.0 L Magnesium 1.5 L Total Bilirubin 5.6 H AST 76 H ALT 55 Alkaline Phosphatase 81 Troponin I Total Protein 6.7 Albumin 2.4 L Lipase Urine Color Urine Clarity Urine pH Ur Specific [place] Urine Protein Urine Ketones Urine Blood Urine Nitrite Urine Bilirubin Urine Urobilinogen Ur Leukocyte Esterase Urine Glucose Patient ABO/Rh Cancelled Antibody Screen 01/17/18 01/17/18 01/17/18 19:00 19:00 19:00 WBC 8.66 D RBC 2.70 L Hgb 9.7 L D Hct 29.4 L MCV 108.9 H MCH 35.9 H MCHC 33.0 RDW 14.8 H Plt Count 68 L MPV 10.5 Immature Gran % 0.0 Neutrophils % 72.0 Lymphocytes % 8.0 Monocytes % 18.0 Eosinophils % 2.0 Basophils % 0.0 Absolute Neutrophils 6.24 Band Neutrophils 0.0 Absolute Lymphocytes 0.69 L Absolute Monocytes 1.56 H Absolute Eosinophils 0.17 Absolute Basophils 0.00 Metamyelocytes 0.0 Myelocytes 0.0 Promyelocytes 0 Differential Comment Manual differential Atypical Lymphocytes 0 Other Cell Type 0 RBC Morphology See below Polychromasia Hypochromasia 1+ Anisocytosis Macrocytosis 1+ PT INR Sample Site pCO2 pO2 O2 Saturation ABG pH ABG HCO3 ABG Total CO2 ABG Base Excess Sodium 141 Potassium 4.6 Chloride 107 Carbon Dioxide 26.4 Anion Gap 7.6 BUN 13 Creatinine 0.83 Estimated GFR/1.73 m2 >= 60.00 Glucose 118 H Lactate 4.2 H Calcium 8.1 L Magnesium Total Bilirubin 4.9 H AST 66 H ALT 44 Alkaline Phosphatase 80 Troponin I Total Protein 5.5 L Albumin 2.0 L Lipase Urine Color Urine Clarity Urine pH Ur Specific [place] Urine Protein Urine Ketones Urine Blood Urine Nitrite Urine Bilirubin Urine Urobilinogen Ur Leukocyte Esterase Urine Glucose Patient ABO/Rh Antibody Screen 01/17/18 01/17/18 01/17/18 18:37 18:00 14:35 WBC RBC Hgb Hct MCV MCH MCHC RDW Plt Count MPV Immature Gran % Neutrophils % Lymphocytes % Monocytes % Eosinophils % Basophils % Absolute Neutrophils Band Neutrophils Absolute Lymphocytes Absolute Monocytes Absolute Eosinophils Absolute Basophils Metamyelocytes Myelocytes Promyelocytes Differential Comment Atypical Lymphocytes Other Cell Type RBC Morphology Polychromasia Hypochromasia Anisocytosis Macrocytosis PT INR Sample Site pCO2 pO2 O2 Saturation ABG pH ABG HCO3 ABG Total CO2 ABG Base Excess Sodium Potassium Chloride Carbon Dioxide Anion Gap BUN Creatinine Estimated GFR/1.73 m2 Glucose Lactate Calcium Magnesium 1.1 L Total Bilirubin AST ALT Alkaline Phosphatase Troponin I Cancelled Total Protein Albumin Lipase Urine Color Urine Clarity Urine pH Ur Specific [place] Urine Protein Urine Ketones Urine Blood Urine Nitrite Urine Bilirubin Urine Urobilinogen Ur Leukocyte Esterase Urine Glucose Patient ABO/Rh A Positive Antibody Screen Negative 01/17/18 01/17/18 01/17/18 14:05 14:05 14:05 WBC 3.94 L RBC 3.41 L Hgb 12.1 Hct 36.7 MCV 107.6 H MCH 35.5 H MCHC 33.0 RDW 14.8 H Plt Count 91 L MPV 10.3 Immature Gran % 0.3 Neutrophils % 84.4 Lymphocytes % 9.6 Monocytes % 4.6 Eosinophils % 0.8 Basophils % 0.3 Absolute Neutrophils 3.33 Band Neutrophils Absolute Lymphocytes 0.38 L Absolute Monocytes 0.18 Absolute Eosinophils 0.03 Absolute Basophils 0.01 Metamyelocytes Myelocytes Promyelocytes Differential Comment Plt morph reviewed Atypical Lymphocytes Other Cell Type RBC Morphology See below Polychromasia Present Hypochromasia Anisocytosis Macrocytosis 2+ PT 14.3 H INR 1.5 Sample Site pCO2 pO2 O2 Saturation ABG pH ABG HCO3 ABG Total CO2 ABG Base Excess Sodium Potassium Chloride Carbon Dioxide Anion Gap BUN Creatinine Estimated GFR/1.73 m2 Glucose Lactate 4.3 H Calcium Magnesium Total Bilirubin AST ALT Alkaline Phosphatase Troponin I Total Protein Albumin Lipase Urine Color Urine Clarity Urine pH Ur Specific [place] Urine Protein Urine Ketones Urine Blood Urine Nitrite Urine Bilirubin Urine Urobilinogen Ur Leukocyte Esterase Urine Glucose Patient ABO/Rh Antibody Screen 01/17/18 01/17/18 14:05 13:51 WBC RBC Hgb Hct MCV MCH MCHC RDW Plt Count MPV Immature Gran % Neutrophils % Lymphocytes % Monocytes % Eosinophils % Basophils % Absolute Neutrophils Band Neutrophils Absolute Lymphocytes Absolute Monocytes Absolute Eosinophils Absolute Basophils Metamyelocytes Myelocytes Promyelocytes Differential Comment Atypical Lymphocytes Other Cell Type RBC Morphology Polychromasia Hypochromasia Anisocytosis Macrocytosis PT INR Sample Site pCO2 pO2 O2 Saturation ABG pH ABG HCO3 ABG Total CO2 ABG Base Excess Sodium 139 Potassium 4.2 Chloride 100 Carbon Dioxide 30.6 Anion Gap 8.4 BUN 13 Creatinine 0.92 Estimated GFR/1.73 m2 >= 60.00 Glucose 170 H Lactate Calcium 9.4 Magnesium Total Bilirubin 4.3 H AST 87 H ALT 60 Alkaline Phosphatase 122 H Troponin I < 0.02 Total Protein 7.3 Albumin 2.7 L Lipase 290 Urine Color Pending Urine Clarity Pending Urine pH Pending Ur Specific [place] Pending Urine Protein Pending Urine Ketones Pending Urine Blood Pending Urine Nitrite Pending Urine Bilirubin Pending Urine Urobilinogen Pending Ur Leukocyte Esterase Pending Urine Glucose Pending Patient ABO/Rh Antibody Screen 01/17/18 17:15 Abdomen Surgical Culture - Pending 01/17/18 17:15 Abdomen Anaerobic Culture - Pending 01/17/18 14:35 Blood Blood Culture - Pending Preliminary micro results at discharge 01/17/18 14:05 Blood Culture - Preliminary Blood Gram Positive Cocci 01/17/18 17:15 Surgical Culture - Pending Abdomen 01/17/18 17:15 Anaerobic Culture - Pending Abdomen 01/17/18 14:35 Blood Culture - Pending Blood
[2018-01-18] MEDS: HYDROmorphone 2 MG/ML VIAL 0.5 MG IVP (11:25)
--- NOTE | 2018-01-18 11:33 | INITIAL_ITS ---
Care Management Initial Assess REASON FOR HOSPITALIZATION:: Sepsis, Colitis PAST MEDICAL HISTORY/PAST SURGICAL HISTORY:: Solitary lung nodule, cirrhosis of liver, depression, fatty liver, GERD, adenomatous colonic polyps, breast CA, hyperlipidemia, hypothyroid, idiopathic peripheral neuropathy, murmur, hx of alcohol abuse, asthma, mastectomy, rt thumb surgery, knee surgery/arthroscopy PREVIOUS FUNCTIONAL STATUS/SOCIAL/FAMILY SUPPORTS:: Dalia resides in [place], [place] with her significant other. CURRENT FUNCTIONAL STATUS:: Dalia is on her side, writhing in pain-unable to engage with this verse writer. Has patient been provided with information about the portal?: Yes Did the patient sign up for the portal?: No CODE STATUS:: Full Code INSURANCE COVERAGE / FINANCIAL ISSUES:: BC/BS PRIMARY CARE PHYSICIAN:: Lisa Marie. POTENTIAL DISCHARGE NEEDS:: Transport and bed coordination at tertiary facility. PATIENT/FAMILY EDUCATION NEEDS:: Transfer purpose and process. ANTICIPATED BARRIERS TO DISCHARGE:: None identified at this time. TRANSPORTATION:: EMS coordinated by [facility]. PLAN:: Dalia will transfer to [facility] via EMS.
--- NOTE | 2018-01-18 15:17 | CHAPLAIN ---
Dalia was in bed and her significant other was with her when I visited. Dalia did not appear to be talking. I spoke with her SO, who told me that Dalia was scheduled to be transferred to [facility] within the hour. I left a prayer shawl for Dalia. While her SO and I were talking, Dalia clearly asked for a prayer, so I said a prayer with her. Her SO commented afterward that he was surprised by the request because Dalia is a life-long agnostic. I checked back with him just as Dalia was being taken out by the [employer] crew and offered him a heart-shaped comfort stone.
== END 2018-01-18 11:40 | disposition short-term general hospital (02) | DRG 853 ==
LOC: ER 14:59 → SUR 16:32 → ICU 20:12
PROVIDERS: Surgery; Admitting Provider Internal Medicine; Emergency Provider Student in an Organized Health Care Education/Training Program; PCP Family Medicine; Visit Provider Internal Medicine
PROC: 0WJG0ZZ Inspection of Peritoneal Cavity, Open Approach (ICD-10-PCS; CPT 49000; principal; 2018-01-17 16:00)
DX: A40.1 Sepsis due to streptococcus, group B (principal); K65.0 Generalized (acute) peritonitis; N17.9 Acute kidney failure, unspecified; K76.6 Portal hypertension; K70.31 Alcoholic cirrhosis of liver with ascites; R65.20 Severe sepsis without septic shock; R41.82 Altered mental status, unspecified; I95.9 Hypotension, unspecified; F10.20 Alcohol dependence, uncomplicated; B95.1 Streptococcus, group B, as the cause of diseases classified elsewhere; K52.89 Other specified noninfective gastroenteritis and colitis; R01.1 Cardiac murmur, unspecified; I08.1 Rheumatic disorders of both mitral and tricuspid valves; I86.8 Varicose veins of other specified sites; R91.8 Other nonspecific abnormal finding of lung field; D73.2 Chronic congestive splenomegaly
CPT/HCPCS: 49000; 36556; 36415; 36430; 36591; 71045; 74177; 80053; 83690; 86850; 86900; 86901; 87040; 87077; 93306; 96361; 96365; 96375; 99222; 99239; 99291; NC; 81003; 83605; 83735; 84484; 85025; 85610; 87070; 87075; 87205; J0131; J2405; J2543; J3010; J3475; J3490; P9059

== ENCOUNTER 2018-04-27 12:17 | Outpatient (CLI) | payer BC, SELFPAY ==
[2018-04-27 13:04] LABS: Abs Immature Grans 0.01 k/cumm (0.0-0.09); Absolute Basophil Count 0.02 k/cumm (0.0-0.2); Absolute Eosinophil Count 0.19 k/cumm (0.0-0.7); Absolute Lymphocyte Count 2.02 k/cumm (1.2-3.4); Absolute Neutrophil Count 1.81 k/cumm (1.2-6.7); Basophils % 0.4; Eosinophils % 4.1; HCT 36.2 % (36.0-46.0); HGB 11.9 g/dL (12.0-15.5); Immature Grans % 0.2; Lymphocytes % 43.4; Mean Corp. HGB Concentration 32.9 g/dL (32.0-36.0); Mean Corpuscular Hemoglobin 33.1 pg (27.0-33.0); Mean Corpuscular Volume 100.6 fL (80-95); Mean Platelet Volume 10.6 fL (8.0-11.0); Monocytes % 12.9; RBC Distribution Width 13.4 % (11.7-14.6); White Blood Cell Count 4.65 k/cumm (4.4-10.8)
[2018-04-27 13:12] LABS: INR 1.4 (0.9-1.1); Prothrombin Time 13.8 sec (9.3-11.0)
[2018-04-27 13:35] LABS: Diff Comment Diff Reviewed; Platelet Count 79 x1000/uL (130-400)
[2018-04-27 13:36] LABS: Poikilocytes 2+
[2018-04-27 14:02] LABS: ALT 61 U/L (12-78); AST 82 U/L (15-37); Alkaline Phosphatase 126 U/L (46-116); Anion Gap 3.9 mmol/L (3-11); BUN 20 mg/dL (7-18); CO2 34.1 mmol/L (21.0-32.0); CREATININE 0.87 mg/dL (0.55-1.02); Calcium 9.5 mg/dL (8.5-10.1); Chloride 103 mmol/L (98-107); Glucose 93 mg/dL (70-100); Potassium 3.8 mmol/L (3.5-5.1); Sodium 141 mmol/L (136-145); Total Protein 7.4 g/dL (6.4-8.2)
== END 2018-04-27 12:37 ==
PROVIDERS: Nurse Practitioner Adult Health; PCP Family Medicine; Visit Provider Family Medicine
DX: K74.60 Unspecified cirrhosis of liver (principal); R18.8 Other ascites
CPT/HCPCS: 36415; 80053; 85025; 85610

== ENCOUNTER 2018-09-12 11:17 | Outpatient (CLI) | payer BC, SELFPAY ==
[2018-09-12 13:23] LABS: INR 1.3 (0.9-1.1); Prothrombin Time 13.1 sec (9.3-11.0)
[2018-09-12 13:30] LABS: Abs Immature Grans 0.01 k/cumm (0.0-0.09); Absolute Basophil Count 0.05 k/cumm (0.0-0.2); Absolute Eosinophil Count 0.12 k/cumm (0.0-0.7); Absolute Lymphocyte Count 1.25 k/cumm (1.2-3.4); Absolute Monocyte Count 0.79 k/cumm (0.11-0.7); Basophils % 1.1; Eosinophils % 2.7; HCT 38.1 % (36.0-46.0); HGB 12.4 g/dL (12.0-15.5); Immature Grans % 0.2; Lymphocytes % 27.7; Mean Corp. HGB Concentration 32.5 g/dL (32.0-36.0); Mean Corpuscular Hemoglobin 35.4 pg (27.0-33.0); Mean Corpuscular Volume 108.9 fL (80-95); Mean Platelet Volume 10.1 fL (8.0-11.0); Monocytes % 17.5; Neutrophils % 50.8; White Blood Cell Count 4.52 k/cumm (4.4-10.8)
[2018-09-12 14:05] LABS: ALT 81 U/L (12-78); AST 160 U/L (15-37); Albumin 3.3 g/dL (3.4-5.0); Alkaline Phosphatase 137 U/L (46-116); Anion Gap 10.4 mmol/L (3-11); BUN 11 mg/dL (7-18); Bilirubin, Total 3.7 mg/dL (0.2-1.0); CO2 26.6 mmol/L (21.0-32.0); CREATININE 0.76 mg/dL (0.55-1.02); Chloride 106 mmol/L (98-107); Glucose 121 mg/dL (70-100); Magnesium 1.8 mg/dL (1.8-2.4); Potassium 4.1 mmol/L (3.5-5.1); Sodium 143 mmol/L (136-145); Total Protein 7.2 g/dL (6.4-8.2)
[2018-09-12 14:25] LABS: Diff Comment RBC Morph Reviewed; Macrocytosis 2+
[2018-09-12 14:26] LABS: Platelet Count 79 x1000/uL (130-400)
== END 2018-09-12 11:37 ==
PROVIDERS: PCP Family Medicine; Visit Provider Family Medicine
DX: K70.30 Alcoholic cirrhosis of liver without ascites (principal); E83.42 Hypomagnesemia
CPT/HCPCS: 36415; 80053; 83735; 85025; 85610

== ENCOUNTER 2018-10-11 00:46 | Outpatient (CLI) | payer BC, SELFPAY ==
--- NOTE | 2018-10-11 13:41 | DI.CT_ITS ---
SYMPTOMS/DIAGNOSIS: INTRAVENTRICULAR HEMORRHAGE, I61.5, F/U FROM TRAUMA CT BRAIN: No priors available for comparison. The granados-white matter differentiation is within normal limits. No intracranial hemorrhage, acute midline shift or mass effect is identified. The ventricles are intact. The basilar cisterns are patent. The visualized paranasal sinuses are clear, as are the mastoid air cells. The calvarium is intact. IMPRESSION: No evidence of acute intracranial hemorrhage.
== END 2018-10-11 01:06 ==
PROVIDERS: PCP Family Medicine; Visit Provider Family Medicine
DX: I61.5 Nontraumatic intracerebral hemorrhage, intraventricular (principal)
CPT/HCPCS: 70450

== ENCOUNTER 2018-10-18 00:49 | Outpatient (CLI) | payer BC, SELFPAY ==
--- NOTE | 2018-10-18 07:29 | MERGE_ITS ---
*[facility]* *[facility]* [address] [place] [address] Date of study: 10/18/2018 Transthoracic Echocardiography M-mode, complete 2D, complete spectral Doppler, and color Doppler *STUDY CONCLUSIONS* Impressions: Compared to the December 2017 study, there has been no significant interval change. Summary: 1. Left ventricle: The cavity size was normal. Wall thickness was normal. Systolic function was normal. The estimated ejection fraction was 60-65%. Wall motion was normal; there were no regional wall motion abnormalities. 2. Left atrium: The atrium was mildly dilated. 3. Right ventricle: The cavity size was normal. Wall thickness was normal. Systolic function was normal. *PATIENT PRESENTATION* Height: 172.7cm (68in ) S/D Pressure: 95 / 56 Weight: 59kg (129.7lb ) BSA: 1.68m^2 Test start time: 07:45 AM. Test stop time: 08:40 AM. PERFORMING Unknown CONSULTING Lisa Marie ORDERING Lisa Marie REFERRING Lisa Marie PERFORMING [facility] [employer] RT Claudia Atkinson)(PRECIOUS)DEBBY *PROCEDURE DATA* Procedure information: This study was interpreted by [facility]. Pertinent images and digital data are archived for permanent storage and are available for subsequent review. Comparison was made to the study of 01/18/2018. Study status: Routine. Transthoracic echocardiography. M-mode, complete 2D, complete spectral Doppler, and color Doppler. A Transthoracic Echocardiogram was performed. Scanning was performed from the parasternal, apical, subcostal, and suprasternal notch acoustic windows. Images were obtained using an [id number] cardiac ultrasound machine. Image quality was excellent. Study completion: The patient tolerated the procedure well. There were no complications. History: PMH: Heart murmur; systolic, r01.1. *CARDIAC ANATOMY* Left ventricle: The cavity size was normal. Wall thickness was normal. Systolic function was normal. The estimated ejection fraction was 60-65%. Wall motion was normal; there were no regional wall motion abnormalities. Diastolic parameters were normal. Aortic valve: Trileaflet; normal thickness leaflets. Mobility was not restricted. Doppler: Transvalvular velocity was within the normal range. There was no stenosis. There was no significant regurgitation. VTI ratio of LVOT to aortic valve: 0.76. Valve area (VTI): 2.3cm^2. Indexed valve area (VTI): 1.4cm^2/m^2. Peak velocity ratio of LVOT to aortic valve: 0.7. Valve area (Vmax): 2.1cm^2. Indexed valve area (Vmax): 1.3cm^2/m^2. Mean velocity ratio of LVOT to aortic valve: 0.58. Valve area (Vmean): 1.8cm^2. Indexed valve area (Vmean): 1.1cm^2/m^2. Mean gradient (S): 5.2mm Hg. Peak gradient (S): 9.3mm Hg. Aorta: Aortic root: The aortic root was normal in size. Ascending aorta: The ascending aorta was normal in size. Mitral valve: Mildly calcified annulus. Mild thickening. Mobility was not restricted. Doppler: Transvalvular velocity was within the normal range. There was no evidence for stenosis. There was trivial regurgitation. Valve area by pressure half-time: 3.8cm^2. Indexed valve area by pressure half-time: 2.2cm^2/m^2. Peak gradient (D): 6.4mm Hg. Left atrium: The atrium was mildly dilated. Right ventricle: The cavity size was normal. Wall thickness was normal. Systolic function was normal. Pulmonic valve: Structurally normal valve. Doppler: Transvalvular velocity was within the normal range. There was no evidence for stenosis. There was no significant regurgitation. Peak gradient (S): 5.1mm Hg. Tricuspid valve: Structurally normal valve. Doppler: Transvalvular velocity was within the normal range. There was no evidence for stenosis. There was mild regurgitation. Pulmonary artery: Pulmonary systolic pressure was within the normal range, in the range of 30mm Hg to 35mm Hg. Right atrium: The atrium was normal in size. Pericardium: There was no pericardial effusion. Systemic veins: Inferior vena cava: Well visualized. The vessel was patent and normal in size. The respirophasic diameter changes were in the normal range (greater than or equal to 50%). Baseline ECG: Bradycardia. Measurements Left ventricle Value 01/18/2018 Reference LV ID, ED, PLAX 4.7 cm 4.8 3.5 - 6.0 LV ID, ES, PLAX 3.5 cm 3.1 2.1 - 4.0 LV PW thickness, ED, PLAX 0.9 cm 0.9 LV end-diastolic volume, 105 ml 97 1-p A2C LV ejection fraction, 1-p 58 % 67 A2C LV end-diastolic volume, 104 ml 49 1-p A4C LV ejection fraction, 1-p 57 % 61 A4C LV e', lateral 0.146 m/sec 0.131 LV E/e', lateral 9 9 LV e', medial 0.102 m/sec 0.099 LV E/e', medial 12 12 LV e', average 0.124 m/sec 0.115 LV E/e', average 10 10 Ventricular septum Value 01/18/2018 Reference IVS thickness, ED, PLAX 0.8 cm 1.0 LVOT Value 01/18/2018 Reference LVOT ID, A-P 2.0 cm 1.9 LVOT area 3 cm^2 2.7 LVOT peak velocity, S 1.06 m/sec 1.07 LVOT mean velocity, S 0.64 m/sec 0.82 LVOT VTI, S 27.2 cm 21.1 LVOT peak gradient, S 4.5 mm Hg 4.6 LVOT mean gradient, S 2 mm Hg 2.9 Stroke volume (SV), LVOT 82 ml 57 DP Stroke index (SV/bsa), 49 ml/m^2 31 LVOT DP Aortic valve Value 01/18/2018 Reference Aortic valve peak 1.5 m/sec 1.9 velocity, S Aortic valve mean 1.1 m/sec 1.3 velocity, S Aortic valve VTI, S 36.0 cm 38.0 Aortic mean gradient, S 5.2 mm Hg 7.8 Aortic peak gradient, S 9.3 mm Hg 14.8 VTI ratio, LVOT/AV 0.76 0.56 Aortic valve area, VTI 2.3 cm^2 1.5 Velocity ratio, peak, 0.7 0.56 LVOT/AV Aortic valve area, peak 2.1 cm^2 1.5 velocity Velocity ratio, mean, 0.58 0.62 LVOT/AV Aortic valve area, mean 1.8 cm^2 1.7 velocity Aortic valve area/bsa, 1.1 cm^2/m^2 0.9 mean velocity Aorta Value 01/18/2018 Reference Aortic root ID, ED 2.7 cm 2.8 Ascending aorta ID, A-P, S 3.1 cm Left atrium Value 01/18/2018 Reference LA ID, A-P, ES 4.2 cm 3.7 LA ID/bsa, A-P (H) 2.5 cm/m^2 2.0 <=2.2 LA volume/bsa, ES, 1-p A4C 39 ml/m^2 41 LA volume, ES, 2-p 53 ml 66 LA volume/bsa, ES, 2-p 32 ml/m^2 36 LA/aortic root ratio 1.52 1.31 Mitral valve Value 01/18/2018 Reference Mitral E-wave peak 1.26 m/sec 1.17 velocity Mitral A-wave peak 0.71 m/sec 0.68 velocity Mitral deceleration time 202 ms 190 150 - 230 Mitral pressure half-time 59 ms 55 Mitral peak gradient, D 6.4 mm Hg 5.5 Mitral E/A ratio, peak 1.77 1.73 Mitral valve area, PHT, DP 3.8 cm^2 4 Pulmonary veins Value 01/18/2018 Reference Pulmonary vein peak 0.41 m/sec velocity, S Pulmonary vein peak 0.59 m/sec velocity, D Pulmonary vein velocity 0.69 ratio, peak, S/D Tricuspid valve Value 01/18/2018 Reference Tricuspid regurg peak 2.6 m/sec 3.1 velocity Tricuspid peak RV-RA 26.9 mm Hg 38.8 gradient Right atrium Value 01/18/2018 Reference RA area, ES, A4C 16.8 cm^2 18.1 8.3 - 19.5 Pulmonic valve Value 01/18/2018 Reference Pulmonic peak gradient, S 5.1 mm Hg Legend: (L) and (H) gunner values outside specified reference range. I have personally reviewed the images and have reviewed and edited the reported findings. Electronically signed by Joshua Mosqueda 10/18/2018 10:07
== END 2018-10-18 01:09 ==
PROVIDERS: PCP Family Medicine; Visit Provider Family Medicine
DX: R01.1 Cardiac murmur, unspecified (principal)
CPT/HCPCS: 93306

== ENCOUNTER 2018-12-01 00:57 | Outpatient (CLI) | payer BC, SELFPAY ==
--- NOTE | 2018-12-01 08:37 | DI.US_ITS ---
SYMPTOM/DIAGNOSIS: CIRRHOSIS, SURVEY FOR HCC ABDOMINAL ULTRASOUND: 12/01 The patient reportedly has a history of hepatic cirrhosis. There is mild nodular contour appearance of the liver and heterogeneous hepatic parenchyma consistent with this diagnosis. There is no focal hepatic lesion identified. Portal venous flow appears normal directional. Some venous varicosities appear to be present in the upper abdomen in the region of the spleen. Common bile duct is of normal diameter. Gallbladder is distended but there is no evidence of cholelithiasis. Abdominal aorta and IVC are of normal diameter. Kidneys appear intact. Spleen is of normal size. CONCLUSION: Findings consistent with hepatic cirrhosis. No focal hepatic lesion identified.
[2018-12-01 10:40] LABS: Calculated LDL 127 mg/dL; Cholesterol 182 mg/dL (50-200); HDL Cholesterol 37 mg/dL (40-60); Triglyceride 93 mg/dL (30-150)
== END 2018-12-01 01:17 ==
PROVIDERS: PCP Family Medicine; Visit Provider Nurse Practitioner Adult Health
DX: K74.60 Unspecified cirrhosis of liver (principal); K82.8 Other specified diseases of gallbladder
CPT/HCPCS: 36415; 80061; 76700; 83036

== ENCOUNTER 2019-04-18 13:14 | Outpatient (CLI) | payer BC, SELFPAY ==
--- NOTE | 2019-04-18 11:11 | DI.RAD_ITS ---
EXAM: XR THORACIC SPINE COMPLETE INDICATION: mid left thoracic paraspinal pain/no trauma/scoliosis, upper back pain lt. COMPARISON: No exams were available for comparison TECHNIQUE: 2D digital imaging was performed. FINDINGS: There is a prominent dextrorotoscoliosis with the apex at T7. There are degenerative disc changes gr eatest on the left at the maximal area of curvature. No compression fractures are visible. IMPRESSION: Degenerative changes and severe scoliosis.
== END 2019-04-18 13:34 ==
PROVIDERS: PCP Family Medicine; Visit Provider Family Medicine
DX: M54.6 Pain in thoracic spine (principal); M51.34 Other intervertebral disc degeneration, thoracic region; M41.34 Thoracogenic scoliosis, thoracic region
CPT/HCPCS: 72072

== ENCOUNTER 2019-10-11 21:18 | Outpatient (REF) | payer BC, SELFPAY ==
[2019-10-11 21:38] LABS: HCT 35.7 % (36.0-46.0); HGB 11.5 g/dL (12.0-15.5); Mean Corp. HGB Concentration 32.2 g/dL (32.0-36.0); Mean Corpuscular Hemoglobin 35.7 pg (27.0-33.0); Mean Corpuscular Volume 110.9 fL (80-95); Mean Platelet Volume 11.1 fL (8.0-11.0); RBC 3.22 m/cumm (4.00-5.20); RBC Distribution Width 14.1 % (11.7-14.6); White Blood Cell Count 3.69 k/cumm (4.4-10.8)
[2019-10-11 21:39] LABS: INR 1.4 (0.9-1.1); Prothrombin Time 14.1 sec (9.3-11.0)
[2019-10-11 21:57] LABS: Iron 175 ug/dL (50-170); Total Iron Binding Capacity 241 ug/dL (250-450); Transferrin Sat 73 % (15-50)
[2019-10-11 22:01] LABS: Platelet Count 84 x1000/uL (130-400)
[2019-10-11 22:24] LABS: ALT 61 U/L (14-59); AST 102 U/L (15-37); Albumin 3.3 g/dL (3.4-5.0); Alkaline Phosphatase 101 U/L (46-116); Anion Gap 9.2 mmol/L (3-11); BUN 19 mg/dL (7-18); Bilirubin, Total 5.2 mg/dL (0.2-1.0); CO2 30.8 mmol/L (21.0-32.0); Calcium 9.8 mg/dL (8.5-10.1); Chloride 98 mmol/L (98-107); Estimated GFR 57.15 (mL/min/1.73m2); Ferritin 145 ng/mL (8-252); GGT 189 U/L (5-55); Glucose 223 mg/dL (74-106); Magnesium 1.5 mg/dL (1.8-2.4); Potassium 4.2 mmol/L (3.5-5.1); Sodium 138 mmol/L (136-145); TSH 0.49 uIU/mL (0.36-3.74); Total Protein 7.6 g/dL (6.4-8.2); Vitamin B12 879 pg/mL (193-986)
[2019-10-13 09:08] LABS: HIV-1/2 Ag & Ab Screen Negative (Negative)
[2019-10-13 15:28] LABS: Chlamydia Result Negative (Negative); GC Result Negative (Negative)
== END 2019-10-11 21:38 ==
LOC: LBN 21:18
PROVIDERS: PCP Family Medicine; Visit Provider Family Medicine
DX: K74.60 Unspecified cirrhosis of liver (principal); Z11.4 Encounter for screening for human immunodeficiency virus [HIV]; E53.8 Deficiency of other specified B group vitamins; Z11.3 Encounter for screening for infections with a predominantly sexual mode of transmission; E83.42 Hypomagnesemia
CPT/HCPCS: 80053; 85027; 87389; 87491; 87591; 82607; 82728; 82977; 83036; 83540; 83550; 83735; 84443; 85610

== ENCOUNTER 2019-10-12 10:01 | Outpatient (CLI) | payer BC, SELFPAY ==
--- NOTE | 2019-10-12 10:45 | DI.RAD_ITS ---
EXAM: XR FOOT RT COMPLETE and XR ankle RT complete CLINICAL HISTORY: pain R foot/max. first MTP, M79.671. TECHNIQUE: 2D digital imaging was performed. COMPARISON: No previous for comparison FINDINGS: BONES: No acute fracture is present. No bony destructive lesion is seen. There is a small enthesophy te at the Achilles insertion site. JOINTS: No dislocation present. The ankle mortise is unremarkable. SOFT TISSUE: Normal. IMPRESSION: No acute abnormality of the right foot and ankle. DATA REPOSITORY: RADIATION DOSE DELIVERED:
--- NOTE | 2019-10-12 10:45 | DI.RAD_ITS ---
EXAM: XR FOOT LT COMPLETE CLINICAL HISTORY: pain left foot, M79.672. TECHNIQUE: 2D digital imaging was performed. COMPARISON: No exams were available for comparison FINDINGS: BONES: No acute fracture is present. No bony destructive lesion is seen. There is a small enthesophyt e at the Achilles insertion site. JOINTS: Mild degenerative changes are seen in the interphalangeal joints of the foot. SOFT TISSUE: Normal. IMPRESSION: Mild degenerative changes of the foot. DATA REPOSITORY: RADIATION DOSE DELIVERED:
== END 2019-10-12 10:21 ==
PROVIDERS: PCP Family Medicine; Visit Provider Family Medicine
DX: M79.671 Pain in right foot (principal); M79.672 Pain in left foot; M25.571 Pain in right ankle and joints of right foot; M19.072 Primary osteoarthritis, left ankle and foot
CPT/HCPCS: 73610; 73630

== ENCOUNTER 2019-10-24 01:02 | Outpatient (CLI) | payer BC, SELFPAY ==
--- NOTE | 2019-10-24 08:00 | DI.CT_ITS ---
EXAM: CT HEAD WO/W CLINICAL HISTORY: multiple falls in last month/no balance/dizziness TECHNIQUE: COMPARISON: No exams were available for comparison FINDINGS: Cranial CT was performed prior to and following intravenous infusion of 100 cc of Omnipaque 350. The re is no evidence of intracranial hemorrhage, mass effect, or midline shift. There is mild generaliz ed cerebral atrophy prominent for this age group. The orbital and temporal bone structures appear in tact. Visualized paranasal sinuses and mastoid air cells are clear. Note is made of mild to moderate pituitary enlargement, pituitary measures about 14 x 10 x 10 millime ters in diameter with a moderately convex superior margin. No enhancing lesion identified in the brain on post contrast imaging. IMPRESSION: Pituitary enlargement, possibility of pituitary mass is raised. Additional evaluation with MRI of th e brain with additional pre and post contrast high-resolution imaging of the pituitary is recommended .
[2019-10-24] MEDS: Omnipaque 350 MG/ML 100 ML BTL IJ (16:01)
[2019-10-24] MEDS: Normal Saline - Diluent 50 ML VIAL IV (16:02)
[2019-10-24] MEDS: Normal Saline Flush 10 ML SYR IVP (16:02)
== END 2019-10-24 01:22 ==
PROVIDERS: PCP Family Medicine; Visit Provider Family Medicine
DX: R29.6 Repeated falls (principal); E23.6 Other disorders of pituitary gland; R93.0 Abnormal findings on diagnostic imaging of skull and head, not elsewhere classified
CPT/HCPCS: 70470; J3490

== ENCOUNTER 2020-03-27 18:49 | Outpatient (REF) | payer BC, SELFPAY | END 2020-03-27 19:09 | LOC: LBN 18:49 | PROVIDERS: PCP Family Medicine; Visit Provider Podiatrist | DX: L02.611 Cutaneous abscess of right foot (principal) | CPT/HCPCS: 87070; 87205 ==

== ENCOUNTER 2020-08-21 20:11 | Emergency (ER) | payer BC, SELFPAY ==
[2020-08-21 20:17] VITALS: BP 138/58; PULSE 101; RESP 16; TEMP 36.5; O2SAT 99
--- NOTE | 2020-08-21 20:56 | W.ED.GENAD ---
Discharge Plan Disposition Patient Disposition: HOME Condition: Stable Discharge Details Clinical Impression: Bleeding from wound Primary Care Provider: Lisa Marie ED Provider: Alvaro Alvarez Home Meds and New Rx's Prescriptions: Continued melatonin 3 mg tablet 10 mg PO HS PRNRF: 0 Adult Probiotic 3 billion cell capsule 3,000 mmu cells PO DAILY RF: 0 trazodone 50 mg tablet 50 mg PO QHS PRN (Reason: sleep) Qty: 90 RF: 3 magnesium oxide 400 mg magnesium capsule 400 - 1,200 mg PO DAILY RF: 0 furosemide 40 mg tablet 40 mg PO BID Qty: 60 RF: 0 albuterol sulfate 2.5 MG/3 ML solution for nebulization 1 vial UPD Q4H PRN Qty: 1 RF: 4 albuterol sulfate [Ventolin HFA] 8 GM HFA aerosol inhaler 2 puff Inhalation QID PRNQty: 3 RF: 4 thiamine HCl (vitamin B1) 250 MG tablet 250 mg PO DAILY RF: 0 lactulose 10 gram/15 mL (15 mL) solution 20 gm PO TID Qty: 750 RF: 3 clobetasol 0.05 % cream 1 applic TP BID PRN (Reason: psoriasis) Qty: 45 RF: 2 ferrous sulfate 325 mg (65 mg iron) tablet,delayed release (DR/EC) 325 mg PO DAILY Qty: 90 RF: 4 folic acid 1 mg tablet 1 mg PO DAILY Qty: 30 RF: 6 levothyroxine 75 mcg tablet 75 mcg PO DAILY Qty: 90 RF: 1 gabapentin 100 mg capsule 100 mg PO BID PRN (Reason: neuropathy) Qty: 60 RF: 0 rifaximin 550 mg tablet 550 mg PO BID Qty: 180 RF: 4 lidocaine 5 % adhesive patch,medicated 1 patch TP DAILY PRN (Reason: neuropathy) Qty: 30 RF: 1 spironolactone 100 mg tablet 100 mg PO DAILY Qty: 90 RF: 2 tramadol 50 mg tablet 50 mg PO BID PRN (Reason: pain) Qty: 12 RF: 0 gabapentin 300 mg capsule 300 - 900 mg PO QHS Qty: 90 RF: 1 Cosentyx (2 Syringes) 150 mg/mL syringe 300 mg SUBCUT QMONTH RF: 0 Discharge Instructions Additional Instructions: At this time you appear hemodynamically stable, there is no evidence of any bleeding through the dressing. I recommend leaving this dressing on for the next 36-48 hours. At that time you may change the outer dressing but be very careful not to be aggressive or pull at the Surgicel. In the meantime, limit your action and movement with the right hand and arm. Rest, elevate above your heart. Please watch for new or worsening symptoms and return to the ER for any concerns. I do recommend contacting your auto service dispatcher tomorrow to discuss your symptoms and potential need for outpatient reevaluation. Medical Decision Making 59-year-old female with a history of liver failure secondary to alcoholic cirrhosis of the liver presents for bleeding from the right arm status post a skin biopsy yesterday. Clinically she appears well, nontoxic. Heart rate in the 90s. Blood pressure 138/58. She is afebrile. Neuro, vascular, tendon intact. The wound began bleeding today when she took the bandage off and accidentally cut the scab off with it. There is only a extremely small trickle at the moment, will apply Surgicel compression dressing. The area was thoroughly cleaned, Surgicel dressing with 4 x 4's, compression wrap applied. Patient observed in the ER for over 30 minutes, no signs of bleeding through the dressing. No indication that the dressing is too tight. When I did go back into the room I did see her picking at the dressing, I educated her that I do not believe that this is in her best interest as any additional manipulation may cause the bleeding to begin once again. Medical Records Medical records reviewed: Yes I reviewed the patient's medical records. HPI General Mode of arrival: ambulatory. Date/Time Provider Initiated Documentation: 08/21/20 20:24. Limitations to Documentation: no limitations. Information obtained by: patient. HPI Narrative: This is a 59-year-old female, [id number], past medical history that includes alcoholic cirrhosis of the liver, liver failure, esophageal varices, GERD, hypothyroidism, presenting to the ER today complaining of bleeding from her right arm. She states that yesterday around 5 PM at [facility] she had a biopsy by a auto service dispatcher, the procedure went without complication. Subsequently this morning she took the bandage off, accidentally pulled the scab off, and it began bleeding. She states that throughout the day she has had to change the dressing a couple times because she continues to bleed. She denies any pain. Denies any other acute concerns or complaints at this time. Related Data Home Medications Medication Instructions Recorded Confirmed albuterol sulfate 1 vial UPD Q4H PRN #1 box 02/12/15 08/21/20 albuterol sulfate [Ventolin HFA] 2 puff INHALATION QID PRN #3 puff 02/12/15 08/21/20 thiamine HCl (vitamin B1) 250 mg PO DAILY 11/02/17 08/21/20 lactulose 10 gram/15 mL (15 mL) 20 gm PO TID #750 ml 06/08/18 08/21/20 oral solution melatonin 3 mg tablet 10 mg PO HS PRN tab 04/18/19 08/21/20 lactobacillus combination no.8 3 3,000 mmu cells PO DAILY 10/11/19 08/21/20 billion cell capsule clobetasol 0.05 % topical cream 1 applic TP BID PRN #45 gm 10/13/19 08/21/20 magnesium oxide 400 - 1,200 mg PO DAILY cap 10/17/19 08/21/20 trazodone 50 mg tablet 50 mg PO QHS PRN #90 tab 10/17/19 08/21/20 ferrous sulfate 325 mg (65 mg 325 mg PO DAILY #90 tab 11/06/19 06/26/20 iron) tablet,delayed release folic acid 1 mg tablet 1 mg PO DAILY #30 tab-cap 01/15/20 08/21/20 levothyroxine 75 mcg tablet 75 mcg PO DAILY #90 tab-cap 01/26/20 08/21/20 gabapentin 100 mg capsule 100 mg PO BID PRN #60 cap 01/30/20 08/21/20 rifaximin 550 mg tablet 550 mg PO BID #180 tab 04/28/20 08/21/20 lidocaine 5 % topical patch 1 patch TP DAILY PRN #30 each 05/17/20 08/21/20 furosemide 40 mg tablet 40 mg PO BID #60 tab 06/26/20 08/21/20 spironolactone 100 mg tablet 100 mg PO DAILY #90 tab-cap 07/01/20 08/21/20 tramadol 50 mg tablet 50 mg PO BID PRN #12 tab 07/22/20 08/21/20 gabapentin 300 mg capsule 300 - 900 mg PO QHS #90 cap 07/29/20 08/21/20 Cosentyx (2 Syringes) 300 mg SUBCUT QMONTH 08/21/20 08/21/20 Previous Rx's Medication Instructions Recorded lactulose 10 gram/15 mL (15 mL) 20 gm PO TID #750 ml 06/08/18 oral solution clobetasol 0.05 % topical cream 1 applic TP BID PRN #45 gm 10/13/19 trazodone 50 mg tablet 50 mg PO QHS PRN #90 tab 10/17/19 ferrous sulfate 325 mg (65 mg 325 mg PO DAILY #90 tab 11/06/19 iron) tablet,delayed release folic acid 1 mg tablet 1 mg PO DAILY #30 tab-cap 01/15/20 levothyroxine 75 mcg tablet 75 mcg PO DAILY #90 tab-cap 01/26/20 gabapentin 100 mg capsule 100 mg PO BID PRN #60 cap 01/30/20 rifaximin 550 mg tablet 550 mg PO BID #180 tab 04/28/20 lidocaine 5 % topical patch 1 patch TP DAILY PRN #30 each 05/17/20 furosemide 40 mg tablet 40 mg PO BID #60 tab 06/26/20 spironolactone 100 mg tablet 100 mg PO DAILY #90 tab-cap 07/01/20 tramadol 50 mg tablet 50 mg PO BID PRN #12 tab 07/22/20 gabapentin 300 mg capsule 300 - 900 mg PO QHS #90 cap 07/29/20 Allergies Allergy/AdvReac Type Severity Reaction Status Date / Time neomycin AdvReac Unknown Unverified 08/21/20 20:20 Coldcough medicines AdvReac Severe resp. Uncoded 08/21/20 20:20 General Stated Complaint: Laceration ELIEZER: 4 Review of Systems Musculoskeletal Musculoskeletal: Denies arthralgias, Denies numbness, Denies stiffness and Denies tingling Integumentary/Breasts Skin/Breast: Denies erythema Neurologic Neurologic: Denies numbness and Denies tingling Hematologic/Lymphatic Hematologic/Lymphatic: Reports easy bleeding and Reports easy bruising [facility] Medical History (Updated 08/21/20 @ 21:38 by REINA Tellez) Acute bacterial peritonitis Alcoholic cirrhosis of liver Depression good resp. to Bupropion 2014 Esophageal varices Grade II/ upper scope [facility] GERD (gastroesophageal reflux disease) High blood sugar Hyperlipidemia (06/07/08) Hypothyroidism Idiopathic peripheral neuropathy Lung nodule right Malignant neoplasm of breast :right breast reconstruction :revision of reconstructed breast : washout of infected right breast hematoma/removal and replacement of implant Portal hypertensive gastropathy upper scope [facility] Sepsis Tubular adenoma of colon [facility] Surgical History History of arthroscopy of knee History of bilateral breast reduction surgery History of esophagogastroduodenoscopy (EGD) S/P colonoscopy Status post exploratory laparotomy (~01/17/18) Family History Mother Hyperlipidemia Neoplasm BREAST Father Diabetes Essential hypertension Heart disease Hyperlipidemia Sister CML (chronic myelocytic leukemia) Grandmother Diabetes Essential hypertension Heart disease Stroke Son No problems noted. Daughter No problems noted. Social History Smoking/Tobacco Use Status: Never Smoking risk assessment performed?: Yes Alcohol Intake: current Alcohol Intake frequency: 0-2 drinks per day Alcohol type: wine Details: Patient was a heavy drinker. 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[employer]; now on disability What is your relationship status?: Panel score (0-1 are the most socially isolated patients): 0 Do you feel safe at home: Yes Do you feel safe in your relationship?: Yes Exam Const General: cooperative, comfortable and no acute distress Orientation: alert, awake and oriented x3 HENMT Head: normal to inspection, normocephalic and atraumatic Neck Neck: normal visual inspection, trachea midline and supple Resp Effort & Inspection: normal respiratory effort and able to speak in complete sentences Cardio Rate: regular rate Rhythm: regular rhythm Skin General skin exam: no rashes or lesions noted Neuro General: patient alert, patient awake, moves all extremities and no focal motor deficits Cognition: normal cognition Speech: speech normal Sensory Exam: no sensory deficits noted Extrem General: full ROM and capillary refill normal Shoulder/upper arm images: 1. There is a 0.5 cm shallow wound with a slow trickle coming from the wound. No arterial bleed. There is no surrounding erythema, warmth, tenderness. No signs of secondary infection. Neuro, vascular, tendon intact. Psych Appearance: grossly normal Mental Status: mental status grossly normal Course Vital Signs Vital signs: Vital Signs Temperature 36.5 C 08/21/20 20:17 Pulse 101 H 08/21/20 20:17 Respiratory Rate 16 08/21/20 20:17 Blood Pressure 138/58 L 08/21/20 20:17 Pulse Oximetry 99 08/21/20 20:17 Temperature 36.5 C 08/21/20 20:17 Temperature Source Skin 08/21/20 20:17 Pulse 101 H 08/21/20 20:17 Respiratory Rate 16 08/21/20 20:17 Respiratory Effort Non-Labored 08/21/20 20:23 Blood Pressure 138/58 L 08/21/20 20:17 Blood Pressure Position Sitting 08/21/20 20:17 Pulse Oximetry 99 08/21/20 20:17 Oxygen Delivery Method Room Air 08/21/20 20:17 Oxygen Flow Rate 0 08/21/20 20:17 Pain Level 0 08/21/20 20:17
[2020-08-21] MEDS: Cellulose,Oxidized 2X3 PKT 1 EACH MC (21:00)
[2020-08-21 22:07] VITALS: BP 138/58; PULSE 101; RESP 16; TEMP 36.5; O2SAT 99
== END 2020-08-21 22:04 | disposition home or self-care (01) ==
PROVIDERS: Emergency Provider Physician Assistant; PCP Family Medicine
DX: L76.21 Postprocedural hemorrhage of skin and subcutaneous tissue following a dermatologic procedure (principal)
CPT/HCPCS: 99281; 99282

== ENCOUNTER 2020-10-01 12:10 | Outpatient (REF) | payer BC, SELFPAY ==
[2020-10-05 11:27] LABS: 2-Hydroxy Ethyl Flurazepam Not Detected ng/mL (Cutoff: 10); 3,4-methylenedioxyamphetamine Not Detected ng/mL (Cutoff: 100); 3,4-methylenedioxyethylampheta Not Detected ng/mL (Cutoff: 100); 3,4-methylenedioxymethamphetam Not Detected ng/mL (Cutoff: 100); 6-monoacetylmorphine Not Detected ng/mL (Cutoff: 25); Alpha-Hydroxy Midazolam Not Detected ng/mL (Cutoff: 10); Alpha-Hydroxy Triazolam Not Detected ng/mL (Cutoff: 10); Alpha-Hydroxyalprazolam Not Detected ng/mL (Cutoff: 10); Alpha-OH-alprazolam Glucuronid Not Detected ng/mL (Cutoff: 50); Alprazolam Not Detected ng/mL (Cutoff: 10); Amphetamine Not Detected ng/mL (Cutoff: 100); Barbiturates Negative ng/mL (Cutoff: 200); Buprenorphine Not Detected ng/mL (Cutoff: 5); Chlordiazepoxide Not Detected ng/mL (Cutoff: 10); Clobazam Not Detected ng/mL (Cutoff: 10); Clonazepam Not Detected ng/mL (Cutoff: 10); Cocaine Negative ng/mL (Cutoff: 150); Codeine Not Detected ng/mL (Cutoff: 25); Comment Normal; Creatinine, U 240.2 mg/dL; Diazepam Not Detected ng/mL (Cutoff: 10); Dihydrocodeine Not Detected ng/mL (Cutoff: 25); EDDP Not Detected ng/mL (Cutoff: 25); Ephedrine Not Detected ng/mL (Cutoff: 100); Fentanyl Not Detected ng/mL (Cutoff: 2); Flurazepam Not Detected ng/mL (Cutoff: 10); Hydrocodone Not Detected ng/mL (Cutoff: 25); Hydromorphone Not Detected ng/mL (Cutoff: 25); Hydromorphone-3-beta-glucuroni Not Detected ng/mL (Cutoff: 100); Lorazepam Not Detected ng/mL (Cutoff: 10); Lorazepam Glucuronide Not Detected ng/mL (Cutoff: 50); Meperidine Not Detected ng/mL (Cutoff: 25); Methadone Not Detected ng/mL (Cutoff: 25); Methamphetamine Not Detected ng/mL (Cutoff: 100); Methylphenidate Not Detected ng/mL (Cutoff: 20); Midazolam Not Detected ng/mL (Cutoff: 10); Morphine Not Detected ng/mL (Cutoff: 25); N-Desmethylclobazam Not Detected ng/mL (Cutoff: 200); N-desmethyltapentadol Not Detected ng/mL (Cutoff: 50); Naloxone Not Detected ng/mL (Cutoff: 25); Norbuprenorphine Not Detected ng/mL (Cutoff: 5); Norfentanyl Not Detected ng/mL (Cutoff: 2); Norhydrocodone Not Detected ng/mL (Cutoff: 25); Normeperidine Not Detected ng/mL (Cutoff: 25); Noroxycodone Not Detected ng/mL (Cutoff: 25); Noroxymorphone Not Detected ng/mL (Cutoff: 25); O-desmethyltramadol Not Detected ng/mL (Cutoff: 25); Oxazepam Glucuronide Not Detected ng/mL (Cutoff: 50); Phencyclidine (PCP) Not Detected ng/mL (Cutoff: 20); Phentermine Not Detected ng/mL (Cutoff: 100); Prazepam Not Detected ng/mL (Cutoff: 10); Propoxyphene Not Detected ng/mL (Cutoff: 25); Pseudoephedrine Not Detected ng/mL (Cutoff: 100); Ritalinic Acid Not Detected ng/mL (Cutoff: 100); Specific Gravity 1.029; Tapentadol Not Detected ng/mL (Cutoff: 25); Temazepam Not Detected ng/mL (Cutoff: 10); Temazepam Glucuronide Not Detected ng/mL (Cutoff: 50); Tetrahydrocannabinol Presumptive Positive ng/mL (Cutoff: 50); Tramadol Not Detected ng/mL (Cutoff: 25); Triazolam Not Detected ng/mL (Cutoff: 10); Zolpidem Phenyl-4-Carboxy acid Not Detected ng/mL (Cutoff: 10); pH 5.1
[2020-10-28 16:04] LABS: Carboxy-THC Interpretation Positive.; Delta-9 CarboxyThc by LC-MS/MS 165 ng/mL (Cutoff:<3)
== END 2020-10-01 12:11 | disposition home or self-care (01) ==
LOC: LBN 12:10
PROVIDERS: PCP Family Medicine; Visit Provider Nurse Practitioner Family
DX: G62.9 Polyneuropathy, unspecified (principal); M41.9 Scoliosis, unspecified; Z79.899 Other long term (current) drug therapy
CPT/HCPCS: 80307; 80347; 80349; 80364

== ENCOUNTER 2020-12-26 21:11 | Outpatient (REF) | payer BC, SELFPAY ==
[2020-12-26 22:11] LABS: Abs Immature Grans 0.03 10^3/uL (0.0-0.06); Absolute Basophil Count 0.05 10^3/uL (0.0-0.2); Absolute Eosinophil Count 0.12 10^3/uL (0.0-0.7); Absolute Lymphocyte Count 0.65 10^3/uL (1.2-3.4); Absolute Monocyte Count 1.07 10^3/uL (0.1-0.8); Absolute Neutrophil Count 5.46 10^3/uL (1.2-6.7); Basophils % 0.7; Eosinophils % 1.6; HCT 30.4 % (36.0-46.0); HGB 9.6 g/dL (11.2-15.7); Immature Grans % 0.4; Lymphocytes % 8.8; MCH 36.5 pg (27.0-33.0); MCHC 31.6 % (32.0-36.0); MCV 115.6 fL (80-95); MPV 10.5 fL (8.0-11.0); Monocytes % 14.5; Nucleated RBC 0 %; RBC 2.63 10^6/uL (3.93-5.22); RDW 12.8 % (11.7-14.6); RDW-SD 54.1 fL; WBC 7.38 10^3/uL (4.4-10.8)
[2020-12-26 22:33] LABS: ALT 43 U/L (14-59); AST 54 U/L (15-37); Albumin 2.6 g/dL (3.4-5.0); Alkaline Phosphatase 138 U/L (46-116); Anion Gap 6.2 mmol/L (3-11); BUN 18 mg/dL (7-18); Bilirubin, Total 5.4 mg/dL (0.2-1.0); CO2 30.8 mmol/L (21.0-32.0); CREATININE 1.5 mg/dL (0.55-1.02); Calcium 9.3 mg/dL (8.5-10.1); Chloride 100 mmol/L (98-107); Estimated GFR 35.54 (mL/min/1.73m2); Glucose 404 mg/dL (74-106); Potassium 4.4 mmol/L (3.5-5.1); Sodium 137 mmol/L (136-145); Total Protein 7.4 g/dL (6.4-8.2)
[2020-12-26 22:35] LABS: ESR 35 mm/hr (0-30)
[2020-12-26 23:04] LABS: Diff Comment RBC Morph Reviewed; Macrocytosis 3+; Platelet Count 68 10^3/uL (130-400)
[2020-12-26 23:10] LABS: Uric Acid 7.1 mg/dL (2.6-6.0)
[2020-12-27 14:17] LABS: Hemoglobin A1C 5.3 % (<5.7)
== END 2020-12-26 21:12 | disposition home or self-care (01) ==
LOC: LBN 21:11
PROVIDERS: PCP Family Medicine; Visit Provider Family Medicine
DX: R73.9 Hyperglycemia, unspecified (principal); M25.472 Effusion, left ankle
CPT/HCPCS: 80053; 85652; 83036; 84550; 85025

== ENCOUNTER 2020-12-29 04:07 | Emergency (ER) | payer BC, SELFPAY ==
[2020-12-29] VITALS (12 sets, daily range): BP systolic 94–110; BP diastolic 42–49; PULSE 121–136; RESP 11–26; TEMP 36.4; O2SAT 91–98
--- NOTE | 2020-12-29 04:15 | DI.RAD_ITS ---
Exam(s) XR FOOT LT COMPLETE EXAM: XR FOOT LT COMPLETE CLINICAL HISTORY: swelling bruising, palpable crepitus, eval for gas. TECHNIQUE: 2D digital imaging was performed. COMPARISON: CR XR FOOT RT COMPLETE from 10/12/2019 FINDINGS: There is no evidence of fracture or diastasis of the Anuja jazmine joint. Main finding here is diffuse subcutaneous emphysema throughout the foot and extending above the ankle level. There is no radiopaque foreign body. Possibly gas gangrene. Bone density is uniform. Ther e is no radiographic evidence of osteomyelitis. IMPRESSION: There is diffuse subcutaneous emphysema as well as gas within the deep tissues of the left foot. Fin dings are suspicious for possible gas gangrene. No fractures no radiographic evidence of focal osteomyelitis. Study 1st read by Berny [facility] DATA REPOSITORY: RADIATION DOSE DELIVERED:
--- NOTE | 2020-12-29 04:30 | W.ED.GENAD ---
Discharge Plan Disposition Patient Disposition: [facility] Condition: Critical Discharge Details Clinical Impression: Necrotizing fasciitis, Sepsis, Acute hyperglycemia Primary Care Provider: Lisa Marie ED Provider: Eugenio Win Home Meds and New Rx's Prescriptions: No Action melatonin 3 mg tablet 10 mg PO HS PRNRF: 0 diclofenac sodium 1 % gel 4 g topical QID PRN (Reason: back pain) 6 Days Qty: 100 RF: 11 cyclobenzaprine 10 mg tablet 10 mg PO BID PRN (Reason: muscle spasm) Qty: 21 RF: 0 gabapentin 100 mg capsule 100 mg PO QHS Qty: 30 RF: 0 pantoprazole 40 mg tablet,delayed release (DR/EC) 40 mg PO DAILY Qty: 90 RF: 1 thiamine HCl (vitamin B1) 250 mg tablet 250 mg PO DAILY Qty: 90 RF: 4 Adult Probiotic 3 billion cell capsule 3,000 mmu cells PO DAILY RF: 0 magnesium oxide 400 mg magnesium capsule 400 - 1,200 mg PO DAILY RF: 0 albuterol sulfate 2.5 MG/3 ML solution for nebulization 1 vial UPD Q4H PRN Qty: 1 RF: 4 albuterol sulfate [Ventolin HFA] 8 GM HFA aerosol inhaler 2 puff Inhalation QID PRNQty: 3 RF: 4 lactulose 10 gram/15 mL (15 mL) solution 20 gm PO TID Qty: 750 RF: 3 clobetasol 0.05 % cream 1 applic TP BID PRN (Reason: psoriasis) Qty: 45 RF: 2 ferrous sulfate 325 mg (65 mg iron) tablet,delayed release (DR/EC) 325 mg PO DAILY Qty: 90 RF: 4 rifaximin 550 mg tablet 550 mg PO BID Qty: 180 RF: 4 spironolactone 100 mg tablet 100 mg PO DAILY Qty: 90 RF: 2 Hold Instructions: Home Medication placed on hold at Doctor's office levothyroxine 75 mcg tablet 75 mcg PO DAILY Qty: 30 RF: 6 folic acid 1 mg tablet 1 mg PO DAILY Qty: 30 RF: 6 furosemide 40 mg tablet 40 mg PO BID Qty: 60 RF: 2 Hold Instructions: Home Medication placed on hold at Doctor's office lidocaine 5 % adhesive patch,medicated 1 patch TP DAILY PRN (Reason: neuropathy) Qty: 90 RF: 0 tramadol 50 mg tablet 50 mg PO BID PRN (Reason: pain) Qty: 12 RF: 0 Cosentyx (2 Syringes) 150 mg/mL syringe 300 mg SUBCUT QMONTH RF: 0 colchicine 0.6 mg tablet 0.6 mg PO DAILY RF: 0 prednisone 20 mg tablet 40 mg PO DAILY RF: 0 Medical Decision Making This is a 60-year-old female with a past medical history of chronic alcoholism, who is decreasing her regular alcohol intake but still drink 1 bottle of wine every 3 nights, alcoholic cirrhosis, peripheral neuropathy, hypothyroidism, high cholesterol, elevated blood sugar/diabetes, GERD, who presents today for evaluation of left foot pain. The patient states that 1 week ago she had onset of mild left foot pain, it is increased swelling over the last 6 days, then over the last 24 hours she had a sudden onset of severe pain in the left foot, swelling, and tenderness. She denies any falls or trauma that she can recall. She denies any fever or chills but does admit to feeling horribly. She has not been on any recent antibiotic. She denies any long trips or surgeries. No other complaints at this time. Physical exam demonstrates swelling in the left foot, bruising on the lateral aspect, mild swelling traveling up the dailey. Notable tenderness throughout all aspects of the foot. Crepitus was palpable on exam. I immediately evaluated the foot under ultrasound, and there is no evidence of notable air. We will get prompt x-rays, consult orthopedic surgery, get blood cultures, start broad-spectrum antibiotics with vancomycin and Zosyn and add clindamycin for additional antitoxin effect. We will rehydrate, monitor closely and reassess. Differential at this time is highest for necrotizing fasciitis of the left lower extremity. 5 AM Laboratory work-up is returned, she has no white count but she has 4 bands, lactate of 10, renal function diminished, hemoglobin 8.9, ESR and CRP elevated, glucose of 700 however she has normal bicarb, and anion gap only of 15. I feel DKA is less likely at this time. Bedside ultrasound showed clear gas, x-ray confirms this. Symptoms are clinically consistent with necrotizing fasciitis. Zosyn and clindamycin are almost done, vancomycin will be started afterwards. We contacted [facility] and discussed the case with orthopedics and the emergency department attending Dr. Leggett. They agree with the need for transfer and surgical intervention. Patient will be sent to the ED. Patient's heart rate is 130 at this time, blood pressure 94/44. Patient will be transferred immediately for surgical management/intervention. I have extensively reviewed the treatment plan with the patient. I have addressed all patient concerns at this time. I have also discussed the plan with the admitting physician and they agree with the current assessment and plan and have agreed to assume responsibility for the patient. All parties demonstrate verbal understanding and agreement with our assessment and plan at this time. The documentation in this chart was dictated using [employer] dictation software. Please excuse any dictation errors. At time of transfer the patient was reassessed and continued to demonstrate No signs of acute respiratory distress requiring intubation, or rapidly declining mental status. The patient is appropriate for transport. HPI General Date/Time Provider Initiated Documentation: 12/29/20 04:17. HPI Narrative: This is a 60-year-old female with a past medical history of chronic alcoholism, who is decreasing her regular alcohol intake but still drink 1 bottle of wine every 3 nights, alcoholic cirrhosis, peripheral neuropathy, hypothyroidism, high cholesterol, elevated blood sugar/diabetes, GERD, who presents today for evaluation of left foot pain. The patient states that 1 week ago she had onset of mild left foot pain, it is increased swelling over the last 6 days, then over the last 24 hours she had a sudden onset of severe pain in the left foot, swelling, and tenderness. She denies any falls or trauma that she can recall. She denies any fever or chills but does admit to feeling horribly. She has not been on any recent antibiotic. She denies any long trips or surgeries. No other complaints at this time. Related Data Home Medications Medication Instructions Recorded Confirmed albuterol sulfate 1 vial UPD Q4H PRN #1 box 02/12/15 12/29/20 albuterol sulfate [Ventolin HFA] 2 puff INHALATION QID PRN #3 puff 02/12/15 12/29/20 lactulose 10 gram/15 mL (15 mL) 20 gm PO TID #750 ml 06/08/18 12/29/20 oral solution melatonin 3 mg tablet 10 mg PO HS PRN tab 04/18/19 12/29/20 lactobacillus combination no.8 3 3,000 mmu cells PO DAILY 10/11/19 12/29/20 billion cell capsule clobetasol 0.05 % topical cream 1 applic TP BID PRN #45 gm 10/13/19 12/29/20 magnesium oxide 400 - 1,200 mg PO DAILY cap 10/17/19 12/29/20 ferrous sulfate 325 mg (65 mg 325 mg PO DAILY #90 tab 11/06/19 12/29/20 iron) tablet,delayed release rifaximin 550 mg tablet 550 mg PO BID #180 tab 04/28/20 12/29/20 spironolactone 100 mg tablet 100 mg PO DAILY #90 tab-cap 07/01/20 12/29/20 Cosentyx (2 Syringes) 300 mg SUBCUT QMONTH 08/21/20 12/29/20 folic acid 1 mg tablet 1 mg PO DAILY #30 tab-cap 08/23/20 12/29/20 levothyroxine 75 mcg tablet 75 mcg PO DAILY #30 tab-cap 08/23/20 12/29/20 diclofenac sodium 1 % topical gel 4 g TOPICAL QID PRN 6 Days #100 g 10/01/20 12/29/20 furosemide 40 mg tablet 40 mg PO BID #60 tab 10/24/20 12/29/20 cyclobenzaprine 10 mg tablet 10 mg PO BID PRN #21 tab 11/20/20 12/29/20 lidocaine 5 % topical patch 1 patch TP DAILY PRN #90 ea 11/27/20 12/29/20 gabapentin 100 mg capsule 100 mg PO QHS #30 cap 12/10/20 12/29/20 pantoprazole 40 mg tablet,delayed 40 mg PO DAILY #90 tab 12/15/20 12/29/20 release thiamine HCl (vitamin B1) 250 mg 250 mg PO DAILY #90 tab 12/15/20 12/29/20 tablet tramadol 50 mg tablet 50 mg PO BID PRN #12 tab 12/17/20 12/29/20 colchicine 0.6 mg PO DAILY 12/29/20 12/29/20 prednisone 40 mg PO DAILY 12/29/20 12/29/20 Previous Rx's Medication Instructions Recorded lactulose 10 gram/15 mL (15 mL) 20 gm PO TID #750 ml 06/08/18 oral solution clobetasol 0.05 % topical cream 1 applic TP BID PRN #45 gm 10/13/19 ferrous sulfate 325 mg (65 mg 325 mg PO DAILY #90 tab 11/06/19 iron) tablet,delayed release rifaximin 550 mg tablet 550 mg PO BID #180 tab 04/28/20 spironolactone 100 mg tablet 100 mg PO DAILY #90 tab-cap 07/01/20 folic acid 1 mg tablet 1 mg PO DAILY #30 tab-cap 08/23/20 levothyroxine 75 mcg tablet 75 mcg PO DAILY #30 tab-cap 08/23/20 diclofenac sodium 1 % topical gel 4 g TOPICAL QID PRN 6 Days #100 g 10/01/20 furosemide 40 mg tablet 40 mg PO BID #60 tab 10/24/20 cyclobenzaprine 10 mg tablet 10 mg PO BID PRN #21 tab 11/20/20 lidocaine 5 % topical patch 1 patch TP DAILY PRN #90 ea 11/27/20 gabapentin 100 mg capsule 100 mg PO QHS #30 cap 12/10/20 pantoprazole 40 mg tablet,delayed 40 mg PO DAILY #90 tab 12/15/20 release thiamine HCl (vitamin B1) 250 mg 250 mg PO DAILY #90 tab 12/15/20 tablet tramadol 50 mg tablet 50 mg PO BID PRN #12 tab 12/17/20 Allergies Allergy/AdvReac Type Severity Reaction Status Date / Time neomycin AdvReac Unknown Unverified 12/29/20 04:27 Coldcough medicines AdvReac Severe resp. Uncoded 12/29/20 04:27 General Stated Complaint: Orthopedic ELIEZER: 2 Review of Systems All systems reviewed & are unremarkable except as noted in HPI and below [facility] Medical History (Updated 12/29/20 @ 05:27 by Eugenio Win DO) Acute bacterial peritonitis Alcoholic cirrhosis of liver Depression good resp. to Bupropion 2014 Esophageal varices Grade II/ upper scope [facility] GERD (gastroesophageal reflux disease) High blood sugar Hyperlipidemia (06/07/08) Hypothyroidism Idiopathic peripheral neuropathy Lung nodule right Malignant neoplasm of breast :right breast reconstruction :revision of reconstructed breast : washout of infected right breast hematoma/removal and replacement of implant Portal hypertensive gastropathy upper scope [facility] Sepsis Tubular adenoma of colon [facility] Surgical History History of arthroscopy of knee History of bilateral breast reduction surgery History of esophagogastroduodenoscopy (EGD) S/P colonoscopy Status post exploratory laparotomy (~01/17/18) Family History Mother Hyperlipidemia Neoplasm BREAST Father Diabetes Essential hypertension Heart disease Hyperlipidemia Sister CML (chronic myelocytic leukemia) Grandmother Diabetes Essential hypertension Heart disease Stroke Son No problems noted. Daughter No problems noted. Social History Smoking/Tobacco Use Status: Never Smoking risk assessment performed?: Yes Alcohol Intake: current Alcohol Intake frequency: 0-2 drinks per day Alcohol type: wine Details: Patient was a heavy drinker. 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 Scleral icterus is present 3.ENT: Atraumatic external nose and ears. Moist MM. Neck: Symmetric, trachea midline, No thyromegaly. 4.CVS: +S1/S2, No murmurs or gallops. Peripheral pulses 2+ and equal in all extremities. Brisk capillary refill in all extremities. 5.RESP: Unlabored respiratory effort. Clear to auscultation bilaterally. No wheezes rales or rhonchi 6.GI: Soft, Nontender/Nondistended, No hepatosplenomegaly. No guarding or rebound. 7.MSK: Left lower extremity demonstrates notable swelling of the foot, traveling about midway up the dailey. No significant calf tenderness. There is bruising of the lateral aspect of foot. Palpation demonstrates notable crepitus. There is warmth and mild redness. Right foot is notably unremarkable with no edema. 8.Skin: Please see musculoskeletal 9.Neuro: can operator II-XII grossly intact. Sensation grossly intact, no focal neurologic deficits. 10.Psych: (AAO) x3. Appropriate mood and affect Course Vital Signs Vital signs: Vital Signs Temperature 36.4 C L 12/29/20 04:13 Pulse 134 H 12/29/20 04:13 Respiratory Rate 18 12/29/20 04:13 Blood Pressure 110/45 L 12/29/20 04:13 Pulse Oximetry 98 12/29/20 04:13 Temperature 36.4 C L 12/29/20 04:13 Temperature Source Temporal Artery Scan 12/29/20 04:13 Pulse 134 H 12/29/20 04:13 Respiratory Rate 18 12/29/20 04:13 Blood Pressure 110/45 L 12/29/20 04:13 Blood Pressure Position Sitting 12/29/20 04:13 Pulse Oximetry 98 12/29/20 04:13 Oxygen Delivery Method Room Air 12/29/20 04:13 Oxygen Flow Rate 0 12/29/20 04:13 Pain Level 10 12/29/20 04:13 Lab/Test Results Lab/Test Results: 12/29/20 04:24 Blood Blood Culture - Pending 12/29/20 04:24 Blood Blood Culture - Pending Critical Care Time Critical Care Time Critical Care Time: Yes Total Critical Care Time: 45 Attestation: Upon my evaluation, this patient had a high probability of imminent or life-threatening deterioration, which required my direct attention, intervention, and personal management. I have personally provided 45 minutes of critical care time exclusive of time spent on separately billable procedures. Time includes review of laboratory data, radiology results, discussion with consultants, and monitoring for potential decompensation. Interventions were performed as documented.
[2020-12-29] MEDS: Normal Saline 500 ML IV (04:32)
[2020-12-29 04:33] LABS: Abs Immature Grans 0.03 10^3/uL (0.0-0.06); HCT 28.6 % (36.0-46.0); HGB 8.9 g/dL (11.2-15.7); MCHC 31.1 % (32.0-36.0); MCV 115.8 fL (80-95); MPV 11.4 fL (8.0-11.0); Nucleated RBC 0 %; RBC 2.47 10^6/uL (3.93-5.22); RDW 13.4 % (11.7-14.6); RDW-SD 57.1 fL; WBC 7.51 10^3/uL (4.4-10.8)
[2020-12-29 04:35] LABS: ESR 46 mm/hr (0-30)
--- NOTE | 2020-12-29 04:35 | NUR.NOTE ---
Radiology at bedside for portable filmsNursing Note:
[2020-12-29 04:36] LABS: Lactate 10.3 mmol/L (0.6-1.4)
[2020-12-29 04:47] LABS: ALT 46 U/L (14-59); AST 80 U/L (15-37); Albumin 2.3 g/dL (3.4-5.0); Alkaline Phosphatase 142 U/L (46-116); Anion Gap 13.2 mmol/L (3-11); Bilirubin, Total 4.4 mg/dL (0.2-1.0); C-Reactive Protein 5.02 mg/dL (0.0-0.3); CO2 28.8 mmol/L (21.0-32.0); Calcium 9.6 mg/dL (8.5-10.1); Chloride 91 mmol/L (98-107); ETHANOL BLOOD 13.1 mg/dL (<3); INR 1.8 (0.9-1.1); PTT Activated 29.6 sec (21.0-27.5); Potassium 4.8 mmol/L (3.5-5.1); Prothrombin Time 18.1 sec (9.3-11.0); Sodium 133 mmol/L (136-145); Total Protein 7.3 g/dL (6.4-8.2)
[2020-12-29 04:50] LABS: Absolute Monocyte Count 0.98 10^3/uL (0.1-0.8); Absolute Neutrophil Count 6.08 10^3/uL (1.2-6.7); Bands % 4; Diff Comment Manual Differential; Macrocytosis 3+; Metamyelocytes % 2; Platelet Count 48 10^3/uL (130-400)
[2020-12-29 04:52] LABS: BUN 48 mg/dL (7-18); Glucose 715 mg/dL (74-106)
[2020-12-29] MEDS: CLINDAMYCIN 600 MG/50 ML BAG 100 MG IVPB (04:53)
[2020-12-29] MEDS: PIPERACILLIN/TAZO 4.5 GM in Normal Saline 100 ML IVPB (04:53)
[2020-12-29] MEDS: HYDROmorphone 2 MG/ML VIAL 1 MG IVP ×2 (04:56→05:33)
[2020-12-29 04:58] LABS: Source Nasal/Nares
--- NOTE | 2020-12-29 05:15 | NUR.NOTE ---
Zohra arrives for patient transport.Nursing Note:
--- NOTE | 2020-12-29 05:20 | DI.VRAD_ITS ---
PROCEDURE INFORMATION: Exam: XR Left Foot Exam date and time: 12/29/2020 4:20 AM Age: 60 years old Clinical indication: Pain; Swelling, leg or foot and other: Swelling, bruising, palpable crepitus; Left; Additional info: Eval for gas TECHNIQUE: Imaging protocol: XR Left foot. Views: 3 or more views. COMPARISON: CR XR FOOT LT COMPLETE 10/12/2019 10:54 AM FINDINGS: Bones/joints: No periosteal reaction or acute fracture Soft tissues: Diffuse subcutaneous emphysema through the foot. No radiopaque foreign body. Recommend further evaluation for clinical history of trauma. Gas gangrene cannot be excluded. Recommend further evaluation clinically. The subcutaneous emphysema extends into the distal left calf but incompletely imaged on this exam. IMPRESSION: Diffuse subcutaneous emphysema through the foot. No radiopaque foreign body. Recommend further evaluation for clinical history of trauma. Gas gangrene cannot be excluded. Recommend further evaluation clinically. The subcutaneous emphysema extends into the distal left calf but incompletely imaged on this exam. Dictated and Authenticated by: Barb Combs MD. Ordering:RENNY Becker MD
--- NOTE | 2020-12-29 05:47 | NUR.NOTE ---
Report [facility] BEATRIZ Calvillo, [facility]:
[2020-12-29 05:49] LABS: COVID-19 PCR Negative (Negative)
--- NOTE | 2020-12-29 05:50 | NUR.NOTE ---
Patient son, Devan Haaslogg [phone] Patient requests he be notified of her transfer. Call x2 with no answer.Nursing Note:
== END 2020-12-29 05:34 | disposition short-term general hospital (02) ==
PROVIDERS: Emergency Provider Student in an Organized Health Care Education/Training Program; PCP Family Medicine
DX: A41.59 Other Gram-negative sepsis (principal); M72.6 Necrotizing fasciitis; R73.9 Hyperglycemia, unspecified
CPT/HCPCS: 36415; 80053; 85652; 87040; 87077; 87635; 96361; 96365; 96366; 96367; 96375; 96376; 99291; 73630; 80320; 83605; 85025; 85610; 85730; 86140; 87186; J2543

== ENCOUNTER 2021-05-27 04:49 | Outpatient (CLI) | payer MEDICARE, BC, SELFPAY ==
--- NOTE | 2021-05-27 13:00 | NS.NUTBLAN_ITS ---
Dalia was referred for diabetes self management education. 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 . PMH: breast cancer 2010, liver carcinoma, hepatic cirrohsis, ascites, peripheral neuropathy. Hx of ETOH abuse. Hoping for liver transplant in next year. Has lost over 50 lbs in last year. Wt: 120 lbs, BMI 20. Has endocrine visit next week. DM meds: 28 units lantus in AM and 5-6 units humolog with meals, Dawood 2 Continuous Glucose Monitor Diet Recall: yogurt and berries with whey protein, apple and cheese, cooked fish, vegetables, sherbet Labs: A1C not reliable in view of liver disease, liver enzymes improving Estimated Needs: 6838-9879 kcal, 60-75 g protein, 45-60 g fat Dalia reports poor appetite and continued weight loss. Current intake is meeting 75% of caloric needs, 100% of protein needs. Blood sugars tend to be on higher range (170-230 mg/dl) on current Dm meds. Frequent hyperlgycemia before 6 am due to liver output during night. Dalia to share her CGM data with television writer for closer observation. 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 Will need work up to determine. Check C peptide level. Session today focused on how to dose meal time insulin with carbohydrate counting and how to dose correction factor when blood sugars are above goal before meals. Provided written information. Recommend dosing lantus BID to decrease Am hyperglycemia. . Meal time insulin for tighter blood sugar control that will help with weight regain. Dalia would benefit from an insulin pump to make meal time dosing easier. Could also consider Afrezza, inhaled insulin if appropriate. Recommend dose lantus 14 units BID, Humolog at meals 1:15 ration with a correction factor of 1:40 check C Peptide level Consider insulin pump or inhaled insulin for ease Use fructoseamine as glycemic marker as A1C unreliable with liver disease Follow up scheduled 06/10/21 at 1 pm.
== END 2021-05-27 04:50 | disposition home or self-care (01) ==
LOC: DS 04:49
PROVIDERS: PCP Family Medicine; Visit Provider Dietitian, Registered
DX: E11.65 Type 2 diabetes mellitus with hyperglycemia (principal); Z79.4 Long term (current) use of insulin; Z71.3 Dietary counseling and surveillance
CPT/HCPCS: 97802

== ENCOUNTER 2021-06-10 22:59 | Outpatient (CLI) | payer BC, SELFPAY ==
--- NOTE | 2021-06-03 15:50 | W.DIABETESNO ---
Date of service: 06/03/21 Time of Service: 14:00 Diabetes Note Reason for Visit: Dm NOTE: Dalia returns for diabetes self management education. Dalia is using a Dawood 2 continuous glucose monitor connected to her iphone. PMH: DM( newly dx Fall 2020), Advanced Liver Cirrohsis, asicites, peripheral neuropathy, hx of ETOH abuse, AKA x1. [place] [facility] [place]. Dm meds: 14 units lantus BID, 3-6 units of humolog at meals. 1:15 meal time insulin/ correction factor 1:40mg/dl. Diet Recall: B: plain yogurt with fruit, L: 1/2 sandwich, pretzel logs, D: store bought tortilla. Ambulatory GLucose Profile (06/03/21 - 05/20/21) Average Glucose: 162 mg/dl Time in Range (70-180): 62% 181-240 m% >250 mg/dl: 9% Less than 70: 3% Dalia reports that there are no patterns emerging from counting carbs and blood sugars. Reports frequent high levels despite low carb intake, and 2 hypoglycemic events, despite recent meal. Suspect may have gastroparesis that is making dosing insulin at meals difficult. Recommend gastric emptying study. Recommend increase lantus in Am by 3 units and track effect. Request 5 day detailed food record with CGM data for better analysis on causes of glycemic excursion. Relieved Dalia is seeing endo next week as is much needed. Will follow up with Dalia in 4 days for food log and CGM data. Have been unable to track CGM remotely as Dalia can't remember her log in information. Time Spent in Nutritional Counseling and Treatment: 30
== END 2021-06-10 23:00 | disposition home or self-care (01) ==
LOC: DS 22:59
PROVIDERS: PCP Family Medicine; Visit Provider Dietitian, Registered

== ENCOUNTER 2021-07-04 01:08 | Outpatient (CLI) | payer MEDICARE, BC, SELFPAY | END 2021-07-04 01:09 | disposition home or self-care (01) | LOC: DS 01:08 | PROVIDERS: PCP Family Medicine; Visit Provider Dietitian, Registered ==

== ENCOUNTER 2021-07-17 03:21 | Outpatient (CLI) | payer BC, SELFPAY | END 2021-07-17 03:22 | disposition home or self-care (01) | PROVIDERS: PCP Family Medicine; Visit Provider Dietitian, Registered ==

== ENCOUNTER 2021-07-29 02:20 | Outpatient (CLI) | payer MEDICARE, BC, SELFPAY ==
--- NOTE | 2021-07-29 14:00 | NS.NUTBLAN_ITS ---
Dalia returns for diabetes self management education. She uses a Dawood 2 continuous glucose monitor, using her iphone as reader. She is not able to use [facility] for remote monitoring at this time (needs [employer] to install joepsh- does not want to reset password and does not know it). 5'7.5 136 lbs (with prosthesis) . Overall, appears to have gained some muscle since last visit 2 months ago. No longer using wheel chair. DM meds: 14 units lantus BID, 3-6 units humolog at meals 1:15 Insulin to Carb Ratio 1:40 Correction Factor Glycemic Date in last 14 days Average Glucose: 167 mg/dl Great Time in Range (70-180 mg/dl): 67% of time close to target 181-250 mg/dl: 16% of time at target > 250 mg/dl: 15% of time not at target <2% hypoglycemia infrequent Overall, blood sugars are better controlled since last visit. Almost at target for Time in Range (goal > 70%), however, elevations in blood sugars (>250mg/dl) have increased and above recommendations. Reviewed meal time insulin and carb counting, recommend changing insulin to carb ratio to 1:10 to reduce hyperglylcemia. Reviewed difference in correction factor and insulin to carb ratio. Did have some hypoglycemia in last month due to correcting too aggressively. Reviewed various examples, Dalia able to demonstrate how to correct for high blood sugars before meals and how to cover carbs in meal. May benefit from changing long acting to Tresiba/Toujeo for longer more stable coverage and once a day dosing. [facility] endocrinology appt rescheduled to end of September 2021. Will follow up by phone in next week.
== END 2021-07-29 02:21 | disposition home or self-care (01) ==
LOC: DS 02:20
PROVIDERS: PCP Family Medicine; Visit Provider Dietitian, Registered
DX: E11.9 Type 2 diabetes mellitus without complications (principal); Z79.4 Long term (current) use of insulin; Z71.3 Dietary counseling and surveillance
CPT/HCPCS: 97803

== ENCOUNTER 2021-08-27 03:58 | Outpatient (CLI) | payer MEDICARE, BC, SELFPAY ==
[2021-08-27 15:57] LABS: Abs Immature Grans 0.04 10^3/uL (0.0-0.06); Absolute Basophil Count 0.05 10^3/uL (0.0-0.2); Absolute Eosinophil Count 0.09 10^3/uL (0.0-0.7); Absolute Neutrophil Count 4.31 10^3/uL (1.2-6.7); Basophils % 0.7; Eosinophils % 1.3; HCT 29.5 % (36.0-46.0); HGB 9.6 g/dL (11.2-15.7); Immature Grans % 0.6; Lymphocytes % 19.1; MCH 36.1 pg (27.0-33.0); MCHC 32.5 % (32.0-36.0); MCV 111 fL (80-95); MPV 9.8 fL (8.0-11.0); Monocytes % 14.7; Neutrophils % 63.6; Platelet Count 68 10^3/uL (130-400); RBC 2.66 10^6/uL (3.93-5.22); RDW 13.6 % (11.7-14.6); RDW-SD 55.7 fL; WBC 6.79 10^3/uL (4.4-10.8)
[2021-08-27 16:06] LABS: INR 1.7 (0.9-1.1); Prothrombin Time 16.2 sec (9.3-11.0)
[2021-08-27 16:51] LABS: ALT 117 U/L (14-59); AST 214 U/L (15-37); Alkaline Phosphatase 157 U/L (46-116); Anion Gap 12.2 mmol/L (3-11); BUN 15 mg/dL (7-18); Bilirubin, Total 6.2 mg/dL (0.2-1.0); CO2 24.8 mmol/L (21.0-32.0); CREATININE 0.9 mg/dL (0.55-1.02); Calcium 8.8 mg/dL (8.5-10.1); Chloride 103 mmol/L (98-107); Glucose 125 mg/dL (74-106); Sodium 140 mmol/L (136-145); Total Protein 7.2 g/dL (6.4-8.2)
[2021-08-27 16:57] LABS: Hemoglobin A1C 4.5 % (<5.7)
[2021-08-28 09:16] LABS: Lab Add On Test DONE
[2021-08-28 09:50] LABS: Magnesium 1.4 mg/dL (1.8-2.4)
[2021-08-29 08:39] LABS: AFP Tumor Marker <2.5 ng/mL (<8.1)
== END 2021-08-27 03:59 | disposition home or self-care (01) ==
LOC: LBO 03:58
PROVIDERS: PCP Family Medicine; Visit Provider Family Medicine
DX: E11.9 Type 2 diabetes mellitus without complications (principal); D64.9 Anemia, unspecified; K70.30 Alcoholic cirrhosis of liver without ascites; E03.9 Hypothyroidism, unspecified; Z13.88 Encounter for screening for disorder due to exposure to contaminants; G60.9 Hereditary and idiopathic neuropathy, unspecified; G89.4 Chronic pain syndrome
CPT/HCPCS: 36415; 80053; 85027; 86341; 82105; 83036; 83655; 83735; 85025; 85610; 86337

== ENCOUNTER 2021-09-11 03:27 | Outpatient (CLI) | payer MEDICARE, BC, SELFPAY ==
[2021-09-11 14:16] LABS: HGB 10.1 g/dL (11.2-15.7); MCH 35.7 pg (27.0-33.0); MCHC 31.6 % (32.0-36.0); MCV 113 fL (80-95); MPV 9.8 fL (8.0-11.0); RBC 2.83 10^6/uL (3.93-5.22); RDW 13.6 % (11.7-14.6); RDW-SD 56.9 fL; WBC 3.96 10^3/uL (4.4-10.8)
[2021-09-11 14:43] LABS: Platelet Count 70 10^3/uL (130-400)
[2021-09-11 15:50] LABS: Magnesium 1.5 mg/dL (1.8-2.4)
[2021-09-15 14:06] LABS: TB Interpretation Negative (Negative); TB1 Ag minus Nil 0.02 IU/ml; TB2 Ag minus Nil 0.01 IU/mL
== END 2021-09-11 03:28 | disposition home or self-care (01) ==
LOC: LBO 03:28
PROVIDERS: PCP Family Medicine; Visit Provider Student in an Organized Health Care Education/Training Program
DX: E11.9 Type 2 diabetes mellitus without complications (principal); D64.9 Anemia, unspecified; D69.6 Thrombocytopenia, unspecified; E03.9 Hypothyroidism, unspecified; Z79.899 Other long term (current) drug therapy; Z13.88 Encounter for screening for disorder due to exposure to contaminants
CPT/HCPCS: 36415; 85027; 86341; 83655; 83735; 86337; 86480

== ENCOUNTER 2021-09-11 19:29 | Emergency (ER) | payer MEDICARE, BC, SELFPAY ==
[2021-09-11 19:36] VITALS: BP 137/47; PULSE 74; RESP 18; TEMP 36.3; O2SAT 99
--- NOTE | 2021-09-11 20:00 | DI.CT_ITS ---
Exam(s) CT HEAD CERVICAL SPINE WO EXAM: CT HEAD CERVICAL SPINE WO CLINICAL HISTORY: fall, vomiting. TECHNIQUE: Imaging Protocol: Axial computed tomography images with coronal and sagittal reformatted images were created and reviewed COMPARISON: CT CT HEAD WO from 12/25/[address] CHEST/ABD/PEL W from 09/11/2021 FINDINGS: CT Head: Ventricles and Extra axial spaces: Normal in size and morphology for the patient's age. Hemorrhage: None. Cerebral parenchyma: Normal. No evidence of an acute territorial infarct. Midline shift: None. Brainstem/Cerebellum: Normal. Calvarium: Normal. Visualized Paranasal sinuses/Mastoids: Clear. Soft Tissues: Unremarkable. CT Cervical Spine: Bones: No acute fracture or subluxation. Degenerative changes are seen in the cervical spine. Soft Tissues: Unremarkable. Lung Apices: Clear. IMPRESSION: 1. No acute intracranial process. 2. No acute fracture or subluxation in the cervical spine. RADIATION DOSE DELIVERED: 1,414.27mGy.cm Total DLP DATA REPOSITORY: All CT scans at this facility are submitted to the National Radiology Data Registry (NRDR) Dose Index Registry (DIR) with the [employer] (A[employer]). RADIATION OPTIMIZATION: All CT scans at this facility use at least one of these dose optimization te chniques: automated exposure control; mA and/or kV adjustment per patient size (includes targeted exa ms where dose is matched to clinical indication); or iterative reconstruction.
--- NOTE | 2021-09-11 20:00 | DI.CT_ITS ---
Exam(s) CT CHEST/ABD/PEL W EXAM: CT CHEST/ABD/PEL W CLINICAL HISTORY: fall, ecchymosis flank, thromybocytopenia, vomitin TECHNIQUE: Imaging Protocol: Axial computed tomography images with coronal and sagittal reformatted images were created and reviewed CONTRAST MATERIAL: Intravenous: Omnipaque 350ml contrast volume:100 mL Oral: No FINDINGS: CHEST: Tracheobronchial tree: Patent where visualized. Pulmonary parenchyma: No consolidation or dominant measurable mass. No architectural distortion. Ther e is a calcified granuloma in the right lung. Visualized thyroid gland: Unremarkable. Mediastinum and Daisy: No dominant adenopathy or fluid collection. The esophagus is unremarkable. Pleura: No effusion or pneumothorax. Heart: The heart is not dilated. Mild coronary artery calcification. No pericardial effusion. Pulmonary arteries: The pulmonary arteries are not sufficiently opacified for evaluation of pulmonary embolic disease. No definite central pulmonary embolus is seen. Aorta: Thoracic aorta non-dilated. Atherosclerosis is present. Lymph nodes: Within normal limits. Soft tissues: The patient has bilateral breast implants. Bones:Within normal limits for the patient's age. There are acute mildly displaced right rib fractur es posterior laterally. There also acute mildly displaced left rib fractures anterior laterally. Th ere is a right convex thoracic scoliosis. ABDOMEN: Liver: There is hepatic cirrhosis present. Multiple upper abdominal varices are present including ga stroesophageal varices. The liver measures 19 cm long. No measurable mass. Portal, Superior Mesenteric, and Splenic Veins: Unremarkable. Gallbladder and Biliary Tract: Cholelithiasis. There is also calcification of the wall of the gallbl adder. No biliary ductal dilatation is present. Pancreas: Normal density, no abnormal calcifications or inflammatory process. Spleen: Normal. Adrenals: No masses seen. Kidneys: Normal size, contour and axis. No radiodense stones or obstructive uropathy. No masses seen. Abdominal Aorta: Abdominal portion non-dilated. Atherosclerosis is present. Bowel: No obstruction or bowel wall thickening. No evidence of appendicitis. Peritoneal Cavity: There is a small amount of pelvic ascites. No free air. Lymph Nodes: Within normal limits. Bones: Within normal limits for the patient's age. Soft Tissues: Unremarkable. PELVIS: Bladder: Symmetric distention, no gross wall thickening. Reproductive Organs: Unremarkable as visualized. Lymph Nodes: Within normal limits. Bones: Within normal limits. IMPRESSION: 1. Bilateral rib fractures. No pneumothorax or pleural effusion. 2. No acute abdominal or pelvic organ injury. 3. Hepatic cirrhosis with varices. Small amount of fluid in the pelvis which is likely ascites. RADIATION DOSE DELIVERED: 964.71mGy.cm Total DLP DATA REPOSITORY: All CT scans at this facility are submitted to the National Radiology Data Registry (NRDR) Dose Index Registry (DIR) with the [employer] (A[employer]). RADIATION OPTIMIZATION: All CT scans at this facility use at least one of these dose optimization te chniques: automated exposure control; mA and/or kV adjustment per patient size (includes targeted exa ms where dose is matched to clinical indication); or iterative reconstruction.
--- NOTE | 2021-09-11 20:31 | W.ED.GENAD ---
Discharge Plan Disposition Patient Disposition: HOME Condition: Stable Discharge Details Clinical Impression: Fracture, ribs, Cirrhosis of liver, Pulmonary nodule, Elevated transaminase level Primary Care Provider: Hannah Campos ED Provider: Sheron Alfred Home Meds and New Rx's Prescriptions: New oxycodone 5 mg capsule 5 mg PO Q6H PRNQty: 6 0RF metoclopramide HCl [Reglan] 10 mg tablet 10 mg PO Q6H PRNQty: 5 0RF Continued (DME) Dexcom G6 Bit Grinder Misc See Rx Instructions .Route Qty: 1 0RF Rx Instructions: As directed (DME) Dexcom G6 Transmitter Device See Rx Instructions .Route Qty: 1 0RF Rx Instructions: As directed lactulose 10 gram/15 mL (15 mL) solution 20 g PO BID baclofen 5 mg tablet 5 mg PO PRN PRN spironolactone [Aldactone] 50 mg tablet 50 mg PO DAILY Qty: 90 3RF pantoprazole 40 mg tablet,delayed release (DR/EC) 40 mg PO DAILY Qty: 90 3RF levothyroxine 75 mcg tablet 75 mcg PO DAILY Qty: 90 3RF gabapentin 300 mg capsule 600 mg PO TID Qty: 180 5RF folic acid 1 mg tablet 1 mg PO DAILY Qty: 90 3RF duloxetine [Cymbalta] 30 mg capsule,delayed release(DR/EC) 30 mg PO DAILY Qty: 90 3RF ferrous sulfate 325 mg (65 mg iron) tablet,delayed release (DR/EC) 325 mg PO DAILY Qty: 90 3RF cholecalciferol (vitamin D3) 50 mcg (2,000 unit) tablet 50 mcg PO DAILY Qty: 90 3RF furosemide 20 mg tablet 20 mg PO DAILY Qty: 90 3RF rifaximin 550 mg tablet 550 mg PO BID Qty: 180 4RF insulin lispro [Humalog KwikPen Insulin] 100 unit/mL insulin pen 1 sliding scale dose subcut USEASDIRECTD Qty: 15 5RF Rx Instructions: 2 units for glucose over 200, 4 units for glucose over 300 clobetasol 0.05 % cream 1 applic TP BID PRN (Reason: psoriasis) Qty: 45 2RF lidocaine 5 % adhesive patch,medicated 1 patch TP DAILY PRN (Reason: neuropathy) Qty: 90 0RF Rx Instructions: leave on most painful area for up to 12 hrs magnesium oxide 400 mg magnesium capsule 400 mg PO TID Qty: 90 5RF ciprofloxacin HCl 250 mg tablet 500 mg PO DAILY Qty: 60 3RF thiamine HCl (vitamin B1) 100 mg tablet 100 mg PO DAILY Qty: 90 3RF trazodone 50 mg tablet 50 mg PO QHS PRN (Reason: sleep) Qty: 90 3RF (DME) pen needle, diabetic [Comfort EZ Pen [place]] 29 gauge x 1/2 needle See Rx Instructions .ROUTE .MEDSUPPLY Qty: 100 4RF Rx Instructions: 5 times per day (DME) FreeStyle Dawood 14 Day [place] Misc See Rx Instructions .ROUTE .MEDSUPPLY Qty: 1 Rx Instructions: As directed (DME) FreeStyle [place]wood 2 Sensor Kit See Rx Instructions .ROUTE .MEDSUPPLY Qty: 2 12RF Rx Instructions: As directed tramadol 50 mg tablet 50 mg PO BID PRN (Reason: pain) Qty: 56 2RF ondansetron HCl [Zofran] 4 mg tablet 4 mg PO Q6H PRN (Reason: nausea and vomiting) Qty: 30 0RF lactulose 20 gram/30 mL solution 20 g PO BID Qty: 1800 5RF Cosentyx (2 Syringes) 150 mg/mL syringe 300 mg SUBCUT QMONTH insulin glargine 100 unit/mL (3 mL) insulin pen 14 unit subcut DAILY Rx Instructions: May substitute Semglee if needed by insurance. No Action (DME) Dexcom G6 Sensor Device See Rx Instructions .Route Qty: 3 12RF Rx Instructions: As directed Discharge Instructions Instructions: Rib Fracture (ED) Additional Instructions: Take Reglan as needed for nausea and vomiting Do not take Ultram and oxycodone together, this medication combination can harm you and even kill you Do not combine opiate medications with alcohol, this can cause you to stop breathing and even Make sure you use your spirometer, at least 12 times a day or once an hour while you are awake you do not develop pneumonia I have offered you admission given your multiple rib fractures and you have declined, please return immediately should you develop shortness of breath, fever, or any new or worsening complaints Follow-up with your doctor in 1 to 2 days for reassesment Referrals: Hannah Campos MD [Primary Care Provider] - Discharge Data Discharge Date/Time-TO BE ENTERED AT DEPARTURE: 09/11/21 22:59 Medical Decision Making Patient is fully alert, oriented, of decisional capacity She has bilateral rib fractures and was offered admission which she has declined She is ambulatory with steady gait She was given a small amount of opiate analgesia She was discharged home in stable condition with stable vitals, fully alert, oriented, of decisional capacity HPI General Date/Time Provider Initiated Documentation: 09/11/21 19:30. HPI Narrative: Next 60-year-old female presents for report of fall 2 days ago. She states that she was drinking alcohol and lost her balance, falling onto a cast iron grill. She states she had pain since that time. She states she was actually evaluated at [facility] yesterday and had an x-ray but declined CT imaging. She left AGAINST MEDICAL ADVICE reportedly. She states today she presents secondary to pain and vomiting. She denies any fever or chills. She denies any strength or sensation change. She denies any anticoagulation. She denies any anterior abdominal pain. She does state that her platelets are typically low. She denies feeling dizzy or off balance at this time. She was able to ambulate into the emergency department per patient. Her last drink was reportedly on Wednesday. Related Data Home Medications Medication Instructions Recorded Confirmed clobetasol 0.05 % topical cream 1 applic topical BID PRN psoriasis 10/13/19 09/13/21 #45 grams secukinumab 150 mg/mL subcutaneous 300 mg subcut QMONTH 08/21/20 09/13/21 syringe (Cosentyx 300 mg/2 Syringes () lidocaine 5 % topical patch 1 patch topical DAILY PRN 11/27/20 09/13/21 neuropathy #90 ea baclofen 5 mg tablet 5 mg PO PRN PRN 02/14/21 09/13/21 cholecalciferol (vitamin D3) 50 50 mcg PO DAILY #90 tabs 02/14/21 09/13/21 mcg (2,000 unit) tablet duloxetine 30 mg capsule,delayed 30 mg PO DAILY #90 caps 02/14/21 09/13/21 release (Cymbalta) ferrous sulfate 325 mg (65 mg 325 mg PO DAILY #90 tabs 02/14/21 09/13/21 iron) tablet,delayed release folic acid 1 mg tablet 1 mg PO DAILY #90 tab-caps 02/14/21 09/13/21 furosemide 20 mg tablet 20 mg PO DAILY #90 tabs 02/14/21 09/13/21 gabapentin 300 mg capsule 600 mg PO TID #180 caps 02/14/21 09/13/21 lactulose 10 gram/15 mL (15 mL) 20 g PO BID 02/14/21 09/13/21 oral solution levothyroxine 75 mcg tablet 75 mcg PO DAILY #90 tabs 02/14/21 09/13/21 pantoprazole 40 mg tablet,delayed 40 mg PO DAILY #90 tabs 02/14/21 09/13/21 release rifaximin 550 mg tablet 550 mg PO BID #180 tabs 02/14/21 09/13/21 spironolactone 50 mg tablet 50 mg PO DAILY #90 tabs 02/14/21 09/13/21 (Aldactone) magnesium oxide 400 mg PO TID #90 caps 02/18/21 09/13/21 ciprofloxacin HCl 250 mg tablet 500 mg PO DAILY #60 tabs 04/02/21 09/13/21 thiamine HCl (vitamin B1) 100 mg 100 mg PO DAILY #90 tabs 04/04/21 09/13/21 tablet trazodone 50 mg tablet 50 mg PO QHS PRN sleep #90 tabs 04/04/21 09/13/21 insulin lispro 100 unit/mL 1 sliding scale dose subcut 04/11/21 09/13/21 subcutaneous pen (Humalog KwikPen USEASDIRECTD #15 mL (U-100) Insulin) pen needle, diabetic 29 gauge x #100 ea 04/24/21 09/13/21/ (Comfort EZ Pen [place]) flash glucose scanning reader #1 ea 04/28/21 09/13/21 (FreeStyle Dawood 14 Day [place]) flash glucose sensor (FreeStyle #2 ea 06/03/21 09/13/21 Dawood 2 Sensor kit) tramadol 50 mg tablet 50 mg PO BID PRN pain #56 tabs 06/13/21 09/13/21 blood-glucose meter,continuous #1 ea 08/01/21 09/13/21 (Dexcom G6 Bit Grinder misc) blood-glucose transmitter (Dexcom #1 ea 08/01/21 09/13/21 G6 Transmitter device) ondansetron HCl 4 mg tablet 4 mg PO Q6H PRN nausea and 08/13/21 09/13/21 (Zofran) vomiting #30 tabs lactulose 20 gram/30 mL oral 20 g (30 mL) PO BID #1,800 mL 09/01/21 09/13/21 solution insulin glargine 100 unit/mL (3 14 unit subcut DAILY 09/11/21 09/13/21 mL) subcutaneous pen metoclopramide HCl 10 mg tablet 10 mg PO Q6H PRN #5 tabs 09/11/21 09/13/21 (Reglan) oxycodone 5 mg capsule 5 mg PO Q6H PRN #6 caps 09/11/21 09/13/21 blood-glucose sensor (DexMashery G6 #3 ea 09/15/21 Sensor device) Previous Rx's Medication Instructions Recorded clobetasol 0.05 % topical cream 1 applic topical BID PRN psoriasis 10/13/19 #45 grams lidocaine 5 % topical patch 1 patch topical DAILY PRN 11/27/20 neuropathy #90 ea cholecalciferol (vitamin D3) 50 50 mcg PO DAILY #90 tabs 02/14/21 mcg (2,000 unit) tablet duloxetine 30 mg capsule,delayed 30 mg PO DAILY #90 caps 02/14/21 release (Cymbalta) ferrous sulfate 325 mg (65 mg 325 mg PO DAILY #90 tabs 02/14/21 iron) tablet,delayed release folic acid 1 mg tablet 1 mg PO DAILY #90 tab-caps 02/14/21 furosemide 20 mg tablet 20 mg PO DAILY #90 tabs 02/14/21 gabapentin 300 mg capsule 600 mg PO TID #180 caps 02/14/21 levothyroxine 75 mcg tablet 75 mcg PO DAILY #90 tabs 02/14/21 pantoprazole 40 mg tablet,delayed 40 mg PO DAILY #90 tabs 02/14/21 release rifaximin 550 mg tablet 550 mg PO BID #180 tabs 02/14/21 spironolactone 50 mg tablet 50 mg PO DAILY #90 tabs 02/14/21 (Aldactone) magnesium oxide 400 mg PO TID #90 caps 02/18/21 ciprofloxacin HCl 250 mg tablet 500 mg PO DAILY #60 tabs 04/02/21 thiamine HCl (vitamin B1) 100 mg 100 mg PO DAILY #90 tabs 04/04/21 tablet trazodone 50 mg tablet 50 mg PO QHS PRN sleep #90 tabs 04/04/21 insulin lispro 100 unit/mL 1 sliding scale dose subcut 04/11/21 subcutaneous pen (Humalog KwikPen USEASDIRECTD #15 mL (U-100) Insulin) pen needle, diabetic 29 gauge x #100 ea 04/24/2103/23 (Comfort EZ Pen [place]) flash glucose sensor (FreeStyle #2 ea 06/03/21 Dawood 2 Sensor kit) tramadol 50 mg tablet 50 mg PO BID PRN pain #56 tabs 06/13/21 blood-glucose meter,continuous #1 ea 08/01/21 (Dexcom G6 Bit Grinder misc) blood-glucose transmitter (Dexcom #1 ea 08/01/21 G6 Transmitter device) ondansetron HCl 4 mg tablet 4 mg PO Q6H PRN nausea and 08/13/21 (Zofran) vomiting #30 tabs lactulose 20 gram/30 mL oral 20 g (30 mL) PO BID #1,800 mL 09/01/21 solution metoclopramide HCl 10 mg tablet 10 mg PO Q6H PRN #5 tabs 09/11/21 (Reglan) oxycodone 5 mg capsule 5 mg PO Q6H PRN #6 caps 09/11/21 blood-glucose sensor (Dexcom G6 #3 ea 09/15/21 Sensor device) Allergies Allergy/AdvReac Type Severity Reaction Status Date / Time adhesive tape Allergy Mild Verified 09/11/21 19:40 neomycin AdvReac Unknown Verified 09/11/21 19:40 Coldcough medicines AdvReac Severe resp. Uncoded 09/11/21 19:40 General Stated Complaint: Chest/Rib ELIEZER: 3 Review of Systems All systems reviewed & are unremarkable except as noted in HPI and below PFSH All Active Problems (Updated 09/11/21 @ 22:51 by REINA Nur) Fracture, ribs (Acute) Cirrhosis of liver (Acute) Pulmonary nodule (Acute) Elevated transaminase level (Acute) Alcoholic cirrhosis of liver without ascites (Chronic) [facility] biopy / no varices on upper scope. Ongoing management at [facility] Status post bilateral mastectomy (Acute) Risk for falls (Acute) Psoriatic arthritis (Acute) Managed by [facility] Dermatology Chronic pain syndrome (Chronic) 03/2021-tramadol, followed by [facility], drug contract with [facility] Right shoulder pain (Acute) due to mobility issues from L AKA; in PT Alcohol abuse (Chronic) discontinued use 11/2020 Thrombocytopenia (Chronic) Chronic-assumed to be secondary to alcohol abuse Anemia (Chronic) Chronic presumed secondary to anemia chronic disease due to alcohol abuse Diabetes mellitus (Chronic) 12/2020-onset with severe hyperglycemia. Requiring insulin, hemoglobin A1c's are felt to be falsely low due to chronic anemia Amputated left leg (Acute) - at [facility] secondary to necrotizing fasciitis Gait abnormality (Acute) Orthostatic hypotension (Acute) Alcoholic cirrhosis of liver (Chronic) Associated with varices, portal hypertension, hepatic encephalopathy, chronic coagulopathy-elevated INR,SBP-on cipro prophylaxis as of 02/2021 Portal hypertensive gastropathy (Chronic) upper scope [facility] Esophageal varices (Chronic) Grade II/ EGD [facility] Depression (Chronic) good resp. to Bupropion 2014 GERD (gastroesophageal reflux disease) (Chronic) Idiopathic peripheral neuropathy (Chronic) Hyperlipidemia (Chronic 06/07/08) Hypothyroidism (Chronic) Medical History (Updated 09/11/21 @ 22:51 by REINA Nur) Acute bacterial peritonitis Hx of traumatic subdural hematoma (~2018) Lung nodule right; followed for 2 yrs, stable. Malignant neoplasm of breast :right breast reconstruction :revision of reconstructed breast : washout of infected right breast hematoma/removal and replacement of implant Necrotizing fasciitis 12/2020-treated [facility]-required amputation of left lower leg Sepsis Tubular adenoma of colon [facility] Surgical History (Updated 08/01/21 @ 13:40 by Hannah Campos MD) History of arthroscopy of knee History of bilateral breast reduction surgery History of esophagogastroduodenoscopy (EGD) S/P colonoscopy Status post exploratory laparotomy (~01/17/18) Family History Mother Hyperlipidemia Neoplasm BREAST Father Diabetes Essential hypertension Heart disease Hyperlipidemia Sister CML (chronic myelocytic leukemia) Grandmother Diabetes Essential hypertension Heart disease Stroke Son No problems noted. Daughter No problems noted. Social History (Reviewed 12/29/20 @ 04:32 by MADHAVI Tong Smoking/Tobacco Use Status: Never Smoking risk assessment performed?: Yes Alcohol Intake: current Alcohol Intake frequency: 0-2 drinks per day Alcohol type: wine Details: Patient was a heavy drinker. 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[employer]; now on disability What is your relationship status?: Panel score (0-1 are the most socially isolated patients): 0 What type of physical activity do you participate in: independent ambulation Do you feel safe at home: Yes Do you feel safe in your relationship?: Yes Exam Const General: cooperative and comfortable HENMT Head: normal to inspection Eyes Pupils: PERRL Neck Other: no midline tenderness Chest Other: ecchymosis right chest wall, tenderness, no crepitus Resp Effort & Inspection: normal respiratory effort and able to speak in complete sentences Auscultation: clear to auscultation bilaterally and no wheezes Other: ecchymosis chest wall Cardio Rate: regular rate Rhythm: regular rhythm Other: distal pulses intact GI Inspection: normal to inspection Other: ecchymosis RUQ Skin General skin exam: no rashes or lesions noted Neuro General: patient alert and patient oriented x3 Cranial Nerves: CN's II-XI intact bilaterally Other: GCS 15 Extrem General: normal to inspection Other: distal pulses intact Course Vital Signs Vital signs: Vital Signs Temperature 36.3 C L 09/11/21 19:36 Pulse 74 09/11/21 19:36 Respiratory Rate 18 09/11/21 19:36 Blood Pressure 137/47 L 09/11/21 19:36 Pulse Oximetry 99 09/11/21 19:36 Temperature 36.3 C L 09/11/21 19:36 Temperature Source Skin 09/11/21 19:36 Pulse 74 09/11/21 19:36 Respiratory Rate 18 09/11/21 19:36 Respiratory Effort 09/11/21 19:47 Respiratory Depth Normal 09/11/21 19:47 Respiratory Pattern Normal 09/11/21 19:47 Blood Pressure 137/47 L 09/11/21 19:36 Blood Pressure Position Sitting 09/11/21 19:36 Pulse Oximetry 99 09/11/21 19:36 Oxygen Delivery Method Room Air 09/11/21 19:36 Oxygen Flow Rate 0 09/11/21 19:36 Pain Level 4 09/11/21 19:36 PAWSS Have you Been Recently Intoxicated or Drunk Within the Last 30 days?: No Have you Ever Experienced Previous Episodes of Alcohol Withdrawal?: Yes Have you ever Experienced Withdrawal Seizures?: No Have you ever Experienced Delirium Tremens(DT)s?: No Have you ever undergone Alcohol Rehabilitation Treatment (i.e, inpt ot outpatient treatment programs)?: No Have you ever Experienced Blackouts?: Yes Have you ever Combined Alcohol with other Downers within the last 90 days?: No Have you ever Combined Alcohol with any other Substance of Abuse during the last 90 days?: No Positive Blood Alcohol level on Presentation? [PCS.BAL]: No Evidence of Increased Autonomic Activity (i.e. HR>120, tremor, sweating, agitation, nausea)?: No Result: 2
[2021-09-11] MEDS: Normal Saline 500 ML 1000 ML IV (20:55)
[2021-09-11 20:56] LABS: Abs Immature Grans 0.03 10^3/uL (0.0-0.06); Absolute Basophil Count 0.05 10^3/uL (0.0-0.2); Absolute Eosinophil Count 0.02 10^3/uL (0.0-0.7); Absolute Lymphocyte Count 0.85 10^3/uL (1.2-3.4); Absolute Monocyte Count 0.99 10^3/uL (0.1-0.8); Absolute Neutrophil Count 3.51 10^3/uL (1.2-6.7); Basophils % 0.9; Eosinophils % 0.4; HCT 29.1 % (36.0-46.0); HGB 9.3 g/dL (11.2-15.7); Immature Grans % 0.6; Lymphocytes % 15.6; MCH 35.9 pg (27.0-33.0); MCV 112 fL (80-95); MPV 9.5 fL (8.0-11.0); Monocytes % 18.2; Neutrophils % 64.3; RBC 2.59 10^6/uL (3.93-5.22); RDW 13.4 % (11.7-14.6); RDW-SD 55.2 fL; WBC 5.45 10^3/uL (4.4-10.8)
[2021-09-11] MEDS: fentaNYL 100 MCG/2 ML VIAL 50 MCG IVP (20:56)
[2021-09-11] MEDS: Metoclopramide 10 MG/2 ML VIAL IVP (20:56)
[2021-09-11 21:01] LABS: ALT 121 U/L (14-59); AST 212 U/L (15-37); Albumin 2.9 g/dL (3.4-5.0); Alkaline Phosphatase 159 U/L (46-116); Anion Gap 6.1 mmol/L (3-11); BUN 14 mg/dL (7-18); Bilirubin, Total 8.6 mg/dL (0.2-1.0); CO2 31.9 mmol/L (21.0-32.0); CREATININE 0.9 mg/dL (0.55-1.02); Calcium 8.9 mg/dL (8.5-10.1); Chloride 102 mmol/L (98-107); Glucose 134 mg/dL (74-106); Lipase 66 U/L (73-393); Potassium 3.8 mmol/L (3.5-5.1); Sodium 140 mmol/L (136-145); Total Protein 7.2 g/dL (6.4-8.2)
[2021-09-11 21:20] LABS: Diff Comment PLT Morph Reviewed; Macrocytosis 3+; Platelet Count 70 10^3/uL (130-400)
--- NOTE | 2021-09-11 21:41 | DI.VRAD_ITS ---
PROCEDURE INFORMATION: Exam: CT Head Without Contrast Exam date and time: 09/11/2021 9:27 PM Age: 60 years old Clinical indication: Injury or trauma; Other: Fall, vomiting; Blunt trauma (contusions or hematomas) TECHNIQUE: Imaging protocol: Computed tomography of the head without contrast. COMPARISON: CT HEAD WO 12/25/2020 3:26 PM FINDINGS: Brain: Generalized atrophy and chronic white matter ischemic changes. There is no mass, acute hemorrhage or acute infarct. Cerebral ventricles: No ventriculomegaly. Paranasal sinuses: Visualized sinuses are unremarkable. No fluid levels. Mastoid air cells: Visualized mastoid air cells are well aerated. Bones/joints: Unremarkable. No acute fracture. Soft tissues: Unremarkable. IMPRESSION: No acute abnormality. PROCEDURE INFORMATION: Exam: CT Cervical Spine Without Contrast Exam date and time: 09/11/2021 9:27 PM Age: 60 years old Clinical indication: Injury or trauma; Other: Fall, vomiting; Blunt trauma (contusions or hematomas) TECHNIQUE: Imaging protocol: Computed tomography of the cervical spine without contrast. COMPARISON: CT HEAD AND CERVICAL SPINE WO CONTRAST (GENERIC) 11/25/2020 12:39 PM FINDINGS: Bones/joints: No acute fracture. Normal alignment. Discs/Spinal canal/Neural foramina: No significant disc protrusion. No severe spinal canal stenosis. No significant neural foraminal narrowing. Lungs: Lung apices are normal. Soft tissues: Unremarkable. IMPRESSION: No acute findings. Dictated and Authenticated by: Maria Esther Lozano MD. Ordering:MAGO Holbrook MD
[2021-09-11] MEDS: Omnipaque 350 MG/ML 100 ML BTL IJ (21:43)
--- NOTE | 2021-09-11 22:06 | DI.VRAD_ITS ---
PROCEDURE INFORMATION: Exam: CT Chest With Contrast; Diagnostic Exam date and time: 09/11/2021 9:32 PM Age: 60 years old Clinical indication: Injury or trauma; Generalized; Blunt trauma (contusions or hematomas); Injury date: 09/11/21; Injury details: Fall, abd pain, vomiting TECHNIQUE: Imaging protocol: Diagnostic computed tomography of the chest with contrast. 3D rendering (Not supervised by radiologist): MIP and/or 3D reconstructed images were created by the technologist. Radiation optimization: All CT scans at this facility use at least one of these dose optimization techniques: automated exposure control; mA and/or kV adjustment per patient size (includes targeted exams where dose is matched to clinical indication); or iterative reconstruction. Contrast material: OMNIPAQUE 350; Contrast volume: 100 ml; Contrast route: INTRAVENOUS (IV); COMPARISON: CT CHEST FOR PULMONARY EMBOLUS 09/02/2017 12:19 PM FINDINGS: Lungs: 8 mm nodule in the lateral right middle lobe is unchanged. Lungs are otherwise clear. Pleural spaces: Unremarkable. No pneumothorax. No pleural effusion. Heart: Unremarkable. No cardiomegaly. No pericardial effusion. Lymph nodes: Unremarkable. No enlarged lymph nodes. Vasculature: Unremarkable. No aortic aneurysm. Bones/joints: Severe thoracic dextroscoliosis. Mildly displaced posterolateral right 7th, 8th, 9th, and 10th rib fractures. Soft tissues: Bilateral breast implants. Unchanged surgical clips of the posterolateral right lower thorax. IMPRESSION: 1. Mildly displaced posterolateral right 7th, 8th, 9th, and 10th rib fractures. 2. Benign lateral right middle lobe 8 mm pulmonary nodule. PROCEDURE INFORMATION: Exam: CT Abdomen And Pelvis With Contrast Exam date and time: 09/11/2021 9:32 PM Age: 60 years old Clinical indication: Injury or trauma; Generalized; Blunt trauma (contusions or hematomas); Injury date: 09/11/21; Injury details: Fall, abd pain, vomiting TECHNIQUE: Imaging protocol: Computed tomography of the abdomen and pelvis with contrast. 3D rendering (Not supervised by radiologist): MIP and/or 3D reconstructed images were created by the technologist. Radiation optimization: All CT scans at this facility use at least one of these dose optimization techniques: automated exposure control; mA and/or kV adjustment per patient size (includes targeted exams where dose is matched to clinical indication); or iterative reconstruction. Contrast material: OMNIPAQUE 350; Contrast volume: 100 ml; Contrast route: INTRAVENOUS (IV); COMPARISON: 1. MR ABDOMEN^ADULT 05/22/2020 6:25 PM 2. Vascular^CTA CAP (Adult) 01/17/2018 2:07 PM FINDINGS: Liver: Nodular liver contour and heterogeneous hepatic parenchyma. 23 mm hypodense lesion in the posterior right lobe of the liver, unchanged from prior exams. Gallbladder and bile ducts: Several tiny calcified gallstones. No gallbladder wall thickening or pericholecystic fluid. No biliary duct dilatation. Pancreas: Normal. No ductal dilation. Spleen: Normal. No splenomegaly. Adrenal glands: Normal. No mass. Kidneys and ureters: Normal. No hydronephrosis. Stomach and bowel: Unremarkable. No obstruction. No mucosal thickening. Appendix: No evidence of appendicitis. Intraperitoneal space: Minimal intraperitoneal free fluid. Vasculature: Gastroesophageal and large left upper quadrant varices. Multiple pelvic phleboliths. Minimal calcified atherosclerotic disease. No abdominal aortic aneurysm. Lymph nodes: Prominent periaortic and may hepatis lymph nodes. Urinary bladder: Unremarkable as visualized. Reproductive: Unremarkable as visualized. Bones/joints: Severe degenerative disc disease at L5-S1. Moderate multilevel lower lumbar facet arthropathy. No acute fracture. Soft tissues: Unremarkable. IMPRESSION: 1. Cirrhosis with multiple varices. 2. Minimal intraperitoneal free fluid, likely ascites related to cirrhosis. No evidence of internal organ injury. 3. Cholelithiasis without evidence of acute cholecystitis. Dictated and Authenticated by: Brian Andrade MD. Ordering:MAGO Holbrook MD
[2021-09-11] MEDS: Metoclopramide 10 MG TAB PO (23:12)
[2021-09-11 23:14] VITALS: BP 144/54; PULSE 80; RESP 16; O2SAT 94
== END 2021-09-11 22:59 | disposition home or self-care (01) ==
PROVIDERS: Emergency Provider Physician Assistant; PCP Family Medicine
DX: S22.43XA Multiple fractures of ribs, bilateral, initial encounter for closed fracture (principal); K74.60 Unspecified cirrhosis of liver; R91.1 Solitary pulmonary nodule; W18.39XA Other fall on same level, initial encounter; R74.01 Elevation of levels of liver transaminase levels; D69.6 Thrombocytopenia, unspecified; R11.10 Vomiting, unspecified
CPT/HCPCS: 36415; 74177; 80053; 83690; 85027; 86341; 86850; 86900; 86901; 96361; 96374; 96375; 99285; 70450; 71260; 72125; 83655; 83735; 85025; 86337; 86480; 99284; J2765; J3010; J3490

== ENCOUNTER → 2021-11-11 02:20 | Outpatient (CLI) | payer MEDICARE, BC, SELFPAY ==
--- NOTE | 2021-11-11 | DI.MRI_ITS ---
Exam(s) MR LOWER EXTREMITY LT WO/W EXAM: MR LOWER EXTREMITY LT WO/W CLINICAL HISTORY: MASS LEFT LOWER EXTREMITY R22.42, MASS LT AKA SITE. TECHNIQUE: Multiplanar multisequence MRI was performed. COMPARISON: No exams were available for comparison FINDINGS: MR examination of the amputated left lower extremity was performed. The femoral stump is noted to co ntain mildly abnormal signal on T2 weighted. This is a nonspecific finding and may be a post surgica l finding. Possibility of osteomyelitis is not excluded. There is a 9 x 18 x 13 millimeter in diameter fluid collection just distal to the AKA site. This jayson ws mild peripheral enhancement on post contrast imaging and the findings are consistent abscess. The re is another small focus of enhancement seen adjacent to the femoral cortex without a discrete fluid collection and this may represent an area of cellulitis. This appears to lie lateral to the distal aspect of the femur. IMPRESSION: Small abscess just distal to the femoral amputation site as described above. Osteomyelitis of distal aspect of the femur not excluded on the basis of this examination. Additional areas of presumed danilo lulitis noted lateral to the amputation site. DATA REPOSITORY:
[2021-11-11] MEDS: Normal Saline Flush 10 ML SYR IVP (14:25)
== END ==
PROVIDERS: PCP Family Medicine; Visit Provider Student in an Organized Health Care Education/Training Program
DX: R93.6 Abnormal findings on diagnostic imaging of limbs (principal)
CPT/HCPCS: 73720

== ENCOUNTER 2021-11-18 03:33 | Outpatient (CLI) | payer MEDICARE, BC, SELFPAY | END 2021-11-18 03:34 | disposition home or self-care (01) | LOC: LBO 03:33 | PROVIDERS: PCP Family Medicine; Visit Provider Family Medicine | DX: E11.9 Type 2 diabetes mellitus without complications (principal) | CPT/HCPCS: 36415; 86341; 86337 ==

== ENCOUNTER → 2021-12-18 03:33 | Outpatient (CLI) | payer MEDICARE, BC, SELFPAY ==
--- NOTE | 2021-12-18 07:45 | DI.RAD_ITS ---
Exam(s) XR RIBS RT W PA LAT CHEST EXAM: XR RIBS RT W PA LAT CHEST CLINICAL HISTORY: right sided pain, flail chest, [id number] TECHNIQUE: 2D digital imaging was performed.Six images were obtained. COMPARISON: CR XR PORTABLE CHEST AP POST LINE from 01/17/2018 FINDINGS: MEDIASTINUM: Normal. HEART: Normal. PULMONARY VASCULATURE: Normal. LUNGS: Clear. PLEURAL SPACE: No pleural effusion or pneumothorax. BONE:Within normal limits for the patient's age. There is again seen a prominent right convex thorac ic scoliosis. RIGHT RIBS: There are old healed right rib fractures. There are acute minimally displaced fractures involving the lateral aspects of the right 7th and 8th ribs. OTHER FINDINGS:Normal. IMPRESSION: 1. No acute pulmonary findings. 2. Acute minimally displaced fractures involving the lateral right 7th and 8th ribs. 3. Old right healed rib fractures. DATA REPOSITORY: RADIATION DOSE DELIVERED:
== END ==
PROVIDERS: PCP Family Medicine; Visit Provider Family Medicine
DX: S22.41XA Multiple fractures of ribs, right side, initial encounter for closed fracture (principal); X58.XXXA Exposure to other specified factors, initial encounter
CPT/HCPCS: 71046; 71100